=== PATIENT | female | born 1955 | race Caucasian/White ===

== ENCOUNTER 2025-07-29 13:43 | Outpatient (REF) | payer MEDICARE, SELFPAY ==
--- NOTE | 2025-07-29 | EMG_ITS ---
Chief complaint: Pain in the right arm Referred by:?Alexander Vallecillo MD Procedure done: Right upper extremity NCS/EMG Right median and ulnar motor studies were performed with F responses. Right median and ulnar mixed sensory, 2nd and 5th digit ortho sensory, and radial sensory studies were performed and needle examination was performed. Findings: Right median mixed distal latencies was moderately prolonged with slightly slow conduction velocity. Otherwise no significant abnormality noted. Impression: Mild right median neuropathy across carpal tunnel [place] [id number] 1 extremity MTDD
--- OUTSIDE RECORDS SUMMARY | 2025-07-29 19:57 | XMS_ITS | Continuity of Care Document ---
Author Organization [facility] Address [address] [place] [address] Care Team Providers Care Screedman/Laborer Name Role Phone PEPPER BOCANEGRA Orthopedic Surgeon GUTIERREZ EDOUARD Head Golf Professional AIDAN MONK Certified Medication Aide [facility] (MARKUS REY[facility]) Orthopedic Surgeon [facility] Sports Medic ine [facility] Gang Pusher LORENZO BOYKIN Urologist ALMITA VILLALOBOS Primary Care Provider [phone] Assessment Encounter Date Assessment Date Assessment LastModified by Organization Details LastModified Time 04/30/2025 04/30/2025 This service was provided using telemedicine. Patient consented to video & audio visit Patient was located at home in the [facility]. Provider was located in the office. No other persons participated in the telemedicine visit except for the patient unless otherwise indicated here. Total time of visit was 9 minutes. [email or web address] Not available 04/30/2025 14:34:49 Plan of Treatment Reminders Order Date Submit Date Provider Last Modified By Organization Details Last Modified Time Details Appointments [id number] 2025 10:00A Genesis Villalobos PA-C Not available Not available Not available Lab culture, urine 2024 025 POLLY [facility] (Centralized Electronic Ordering - All Locations), Patient Can Go To The Location Of Their Choice, [id number] 05/02/2025 06:08:37 urinalysi s macro (dipstick ) panel, urine 2024 025 FULTON [facility] (Centralized Electronic Ordering - All Locations), Patient Can Go To The Location Of Their Choice, [id number] 05/01/2025 08:08:03 Referral None recorded. Procedures None recorded. Surgeries None recorded. Imaging None recorded. Medication Orders ciproflox acin 250 mg tablet 2024 025 [place] [id number], [id number] [place], [address], 05/10/2025 05:01:33 Patient TargetsNo targets recorded. Patient Instructions Encounter Date Encounter Id Patient Instructions Last Modified By Organization Details Last Modified Time 04/30/2025 [id number] Follow up if no improvement or if symptoms worsen. [email or web address] Not available 04/30/2025 14:34:56 Reason for Referral None Reported. Results Created Date Observation Date Name Description Value Unit Range Abnormal Flag Note LastModifiedBy Organization Detail LastModifiedTime 04/12/2004/12/2025 rapid SARS CoV 2 Ag, QL IA, respi rator y speci men RAPID SARS COV 2 negati ve Not Available In-Office Order Internal Use Only DO Not Attach Compendium DO Not Attach Compendium, Do Not Delete/merge, [id number] 04/12/2025 10:41:23 04/12/2004/12/2025 rapid flu (A+B) Flu A negati ve Not Available In-Office Order Internal Use Only DO Not Attach Compendium DO Not Attach Compendium, Do Not Delete/merge, [id number] 04/12/2025 10:37:16 04/12/2004/12/2025 rapid flu (A+B) Flu B negati ve Not Available In-Office Order Internal Use Only DO Not Attach Compendium DO Not Attach Compendium, Do Not Delete/merge, [id number] 04/12/2025 10:37:16 04/16/2004/16/2025 hemog lobin A1C, finge rstic k A1C 5.3 % 4-6 normal Not Available In-Office Order Internal Use Only DO Not Attach Compendium DO Not Attach Compendium, Do Not Delete/merge, [id number] 04/16/2025 12:07:34 04/30/2005/01/2025 URINA LYSIS , ROUTI NE specific gravity 1.027 1.005- 1.030 normal Not Available [facility] ([facility]) [address] [place], [address], 05/01/2025 08:08:03 04/30/2005/01/2025 URINA LYSIS , ROUTI NE pH 5.5 5.0-7. 5 normal Not Available [facility] ([facility]) [address] [place], [address], 05/01/2025 08:08:03 04/30/2005/01/2025 URINA LYSIS , ROUTI NE urine-color [place] yellow Not Available [facility] ([facility]) [address] [place], [address], 05/01/2025 08:08:03 04/30/2005/01/2025 URINA LYSIS , ROUTI NE appearance Turbid clear abnormal Not Available [facility] ([facility]) [address] [place], [address], 05/01/2025 08:08:03 04/30/2005/01/2025 URINA LYSIS , ROUTI NE WBC esterase 2+ negati ve abnormal Not Available [facility] ([facility]) [address] [place], [address], 05/01/2025 08:08:03 04/30/2005/01/2025 URINA LYSIS , ROUTI NE protein 3+ negati ve/tra ce abnormal Not Available [facility] ([facility]) [address] [place], [address], 05/01/2025 08:08:03 04/30/2005/01/2025 URINA LYSIS , ROUTI NE glucose Negati ve negati ve Not Available [facility] ([facility]) [address] [facility] [place], [address], 05/01/2025 08:08:03 04/30/2005/01/2025 URINA LYSIS , ROUTI NE ketones Negati ve negati ve Not Available [facility] ([facility]) [address], [place], [address], 05/01/2025 08:08:03 04/30/2005/01/2025 URINA LYSIS , ROUTI NE occult blood 2+ negati ve abnormal Not Available [facility] ([facility]) [address], [place], [address], 05/01/2025 08:08:03 04/30/2005/01/2025 URINA LYSIS , ROUTI NE bilirubin Positi ve negati ve abnormal Posit zoila resul ts have been confi rmed. Not Available [facility] ([facility]) [address], [place], [address], 05/01/2025 08:08:03 04/30/2005/01/2025 URINA LYSIS , ROUTI NE urobilinogen ,semi-qn 1.0 mg/dL 0.2-1. 0 normal Not Available [facility] ([facility]) [address], [place], [address], 05/01/2025 08:08:03 04/30/2005/01/2025 URINA LYSIS , ROUTI NE nitrite, urine Positi ve negati ve abnormal Not Available [facility] ([facility]) [address] [place], [address], 05/01/2025 08:08:03 04/30/2005/01/2025 URINA LYSIS , ROUTI NE microscopic examination See below: Micro scopi c was indic ated and was perfo rmed. Not Available [facility] ([facility]) [address] [place], [address], 05/01/2025 08:08:03 04/30/2005/01/2025 URINA LYSIS , ROUTI NE WBC >30 /hpf 0 - 5 abnormal Not Available [facility] ([facility]) [address], [place], [address], 05/01/2025 08:08:03 04/30/20 25 05/01/2025 URINA LYSIS , ROUTI NE RBC >30 /hpf 0 - 2 abnormal Not Available [facility] ([facility]) [address], [place], [address], 05/01/2025 08:08:03 04/30/2005/01/2025 URINA LYSIS , ROUTI NE epithelial cells (non renal) 0-10 /hpf 0 - 10 Not Available [facility] ([facility]) [address], [place], [address], 05/01/2025 08:08:03 04/30/20 25 05/01/2025 URINA LYSIS , ROUTI NE epithelial cells (renal) CLINICAL ABSTRACTOR Not Available [facility] ([facility]) [address], [place], [address], 05/01/2025 08:08:03 04/30/2005/01/2025 URINA LYSIS , ROUTI NE casts None seen /lpf none seen Not Available [facility] ([facility]) [address], [place], [address], 05/01/2025 08:08:03 04/30/2005/01/2025 URINA LYSIS , ROUTI NE cast type CLINICAL ABSTRACTOR Not Available [facility] ([facility]) [address], [place], [address], 05/01/2025 08:08:03 04/30/20 25 05/01/2025 URINA LYSIS , ROUTI NE crystals CLINICAL ABSTRACTOR Not Available [facility] ([facility]) [address], [place], [address], 05/01/2025 08:08:03 04/30/20 25 05/01/2025 URINA LYSIS , ROUTI NE crystal type CLINICAL ABSTRACTOR Not Available [facility] ([facility]) [address], [place], [address], 05/01/2025 08:08:03 04/30/20 25 05/01/2025 URINA LYSIS , ROUTI NE mucus threads CLINICAL ABSTRACTOR Not Available [facility] ([facility]) [address], [place], [address], 05/01/2025 08:08:03 04/30/2005/01/2025 URINA LYSIS , ROUTI NE bacteria Many none seen/f ew abnormal Not Available [facility] ([facility]) [address], [place], [address], 05/01/2025 08:08:03 04/30/2005/01/2025 URINA LYSIS , ROUTI NE yeast CLINICAL ABSTRACTOR Not Available [facility] ([facility]) [address], [place], [address], 05/01/2025 08:08:03 04/30/20 25 05/01/2025 URINA LYSIS , ROUTI NE trichomonas CLINICAL ABSTRACTOR Not Available [facility] ([facility]) [address], [place], [address], 05/01/2025 08:08:03 04/30/2005/01/2025 URINA LYSIS , ROUTI NE comment CLINICAL ABSTRACTOR Not Available [facility] ([facility]) [address], [place], [address], 05/01/2025 08:08:03 04/30/20 25 05/01/2025 URINE CULTU RE, ROUTI NE urine culture, routine Final report Not Available [facility] ([facility]) [address], [place], [address], 05/02/2025 06:08:37 04/30/20 25 05/01/2025 URINE CULTU RE, ROUTI NE result 1 COMMEN T Mixed uroge nital thiago Great er than 100,0 00 colon y formi ng units per mL Not Available [facility] ([facility]) [address], [place], [address], 05/02/2025 06:08:37 Result Notes None recorded. Problems Name Problem SNOMED Code Status Onset Date Resolution Date Notes Provider Name and Address Organization Details Recorded Time Dysuria 37902265 Completed 08/02/2017 RAJESH Zarate [address], [place], [address] , [facility] 4 13:42:37 Depressi ve disorder 35426635 Completed 08/02/2017 Luz Maria martinez [facility] 7 14:57:07 Fatigue 49990966 Completed 01/26/2017 Shikha martinez [facility] 7 12:48:11 Vertigo 270908408 Completed 08/02/2017 Luz Maria martinez [facility] 7 14:57:16 Arthropa thy of knee joint 689966792 Completed 08/02/2017 Luz Maria martinez [facility] 7 14:56:45 Pneumoni a 763423267 Completed 08/02/2017 LIN Pavon [facility] 7 14:38:57 Administ ration of bacteria l and viral vaccine Completed 200702/26/2014 RECORDED 04/22/20 08 11:02AM BY AKUA BAILEY MA, OFFICE VISIT Almita Villalobos PA-C [address], [place], [address] , [facility] 6 14:10:13 Pain of hip region 82394073 Completed 200702/26/2014 IMPRESSI ON: LEFT HIP PAIN WITH KNOWN ARTHRITI S, WILL CHECK XRAY AND REFER TO ORTHO, NEW PROBLEM, KNOWN OA, TREAT WITH MOTRIN, WATER EXERCISE S; RECORDED 04/22/20 08 10:35AM BY KRISHNA HUGGINS ON/[facility] [address], [place], [address] , [facility] 6 14:10:12 Administ ration of bacteria l and viral vaccine Completed 200703/21/2014 RECORDED 04/22/20 08 11:02AM BY AKUA BAILEY MA, OFFICE VISIT [facility] [address], [place], [address] , [facility] 6 14:10:13 Pain of hip region 08376753 Completed 200703/21/2014 IMPRESSI ON: LEFT HIP PAIN WITH KNOWN ARTHRITI S, WILL CHECK XRAY AND REFER TO ORTHO, NEW PROBLEM, KNOWN OA, TREAT WITH MOTRIN, WATER EXERCISE S; RECORDED 04/22/20 08 10:35AM BY KRISHNA HUGGINS ON/[facility] [address], [place], [address] , [facility] 6 14:10:12 Administ ration of bacteria l and viral vaccine Completed 200703/22/2014 RECORDED 04/22/20 08 11:02AM BY AKUA BAILEY MA, OFFICE VISIT Almita Villalobos PA-C [address], [place], [address] , [facility] 6 14:10:13 Pain of hip region 12635467 Completed 200703/22/2014 IMPRESSI ON: LEFT HIP PAIN WITH KNOWN ARTHRITI S, WILL CHECK XRAY AND REFER TO ORTHO, NEW PROBLEM, KNOWN OA, TREAT WITH MOTRIN, WATER EXERCISE S; RECORDED 04/22/20 08 10:35AM BY CLARE CONTRERAS, ANNOTATI ON/ADDEN DUM Almita Villalobos PA-C [address], [place], [address] , [facility] 6 14:10:12 Screenin g for malignan t neoplasm of colon Completed 200702/26/2014 RECORDED 07/31/20 08 11:15AM BY AKUA BAILEY MA, ANNOTATI ON/ADDEN DUM Almita Villalobos PA-C [address], [place], [address] , [facility] 6 14:10:13 Screenin g for malignan t neoplasm of colon Completed 200703/21/2014 RECORDED 07/31/20 08 11:15AM BY AKUA BAILEY MA, ANNOTATI ON/ADDEN DUM Almita Villalobos PA-C [address], [place], [address] , [facility] 6 14:10:13 Screenin g for malignan t neoplasm of colon Completed 200703/22/2014 RECORDED 07/31/20 08 11:15AM BY AKUA BAILEY MA, ANNOTATI ON/ADDEN DUM Almita Villalobos PA-C [address], [place], [address] , [facility] 6 14:10:13 Cough [id number] Completed 200802/26/2014 RECORDED 09/18/19 09 1:00PM BY SUZETTE LEESATI ON/ADDEN DUM Almita Villalobos PA-C [address], [place], [address] , [facility] 6 14:10:12 Cough 02574407 Completed 200803/21/2014 RECORDED 09/18/19 09 1:00PM BY SUZETTE LEESATI ON/ADDEN DUM Almita Villalobos PA-C [address], [place], [address] , [facility] 6 14:10:12 Cough 86659867 Completed 200803/22/2014 RECORDED 09/18/19 09 1:00PM BY KRISHNA LEES ON/ADDEN DUM Almita Villalobos PA-C [address], [place], [address] , [facility] 6 14:10:12 Acute sinusiti s 52528848 Completed 200902/26/2014 RECORDED 06/19/20 10 9:07AM BY KRISHNA ROSAS ON/ADDEN DUM Almita Villalobos PA-C [address], [place], [address] , [facility] 6 14:10:12 Chronic nonalcoh olic liver disease 39382345 Completed 200902/26/2014 IMPRESSI ON: CHECK LFT'S; RECORDED 06/19/20 10 9:06AM BY KRISHNA ROSAS ON/ADDEN DUM [facility] 7 12:48:10 Acute sinusiti s 44784093 Completed 200903/21/2014 RECORDED 06/19/20 10 9:07AM BY KRISHNA ROSAS ON/ADDEN DUM Almita Villalobos PA-C [address], [place], [address] , [facility] 6 14:10:12 Acute sinusiti s 14549655 Completed 200903/22/2014 RECORDED 06/19/20 10 9:07AM BY KRISHNA ROSAS ON/ADDEN DUM Almita Villalobos PA-C [address], [place], [address] , [facility] 6 14:10:12 Abdomina l pain 85532844 Completed 201102/26/2014 RECORDED 06/05/20 12 1:40PM BY KRISHNA PAVON ON/ADDEN DUM Almita Villalobos PA-C [address], [place], [address] , [facility] 6 14:10:12 Left lower quadrant pain 031017275 Completed 201102/26/2014 RECORDED 06/05/20 12 1:40PM BY KRISHNA PAVON ON/ADDEN DUM Almita Villalobos PA-C [address], [place], [address] , [facility] 6 14:10:13 Allergic rhinitis 82939246 Completed 201102/26/2014 IMPRESSI ON: CONTINUE NASAL SPRAY; RECORDED 06/05/20 12 1:40PM BY KRISHNA PAVON ON/ADDEN DUM Almita Villalobos PA-C [address], [place], [address] , [facility] 6 14:10:12 Screenin g for malignan t neoplasm of breast Completed 201102/26/2014 RECORDED 06/05/20 12 1:40PM BY KRISHNA PAVON ON/ADDEN DUM Almita Villalobos PA-C [address], [place], [address] , [facility] 6 14:10:13 Screenin g for malignan t neoplasm of cervix Completed 201102/26/2014 RECORDED 06/05/20 12 1:40PM BY KRISHNA PAVON ON/ADDEN DUM Almita Villalobos PA-C [address], [place], [address] , [facility] 6 14:10:13 Malaise and fatigue 271402655 Completed 201102/26/2014 RECORDED 06/05/20 12 1:40PM BY KRISHNA PAVON ON/ADDEN DUM Almita Villalobos PA-C [address], [place], [address] , [facility] 6 14:10:12 Right upper quadrant pain 562594263 Completed 201102/26/2014 IMPRESSI ON: R SIDED ABD PAIN, SOUNDS HISTORIC ALLY CONSISTE NT WITH ZOSTER, BUT THERE IS NO RASH PRESENT AND PT DOES HAVE A HX OF CHOLELIT HIASIS. WILL GET LABS TODAY AND DISCUSSE D POSSIBIL ITY OF REPEATIN G ABD U/S, BUT PT WISHES TO DEFER AT THIS TIME AND WILL MONITOR SXS AT HOME. WE WILL F/U VIA PHONE WITH LABS WHEN AVAIL. I AM NOT CONCERNE D ABOUT ACUTE ABD, BUT SHE WILL CALL IMMEDIAT CORNELIA IF ANY FEVER, N/V OR RASH DEVELOPS .; RECORDED 06/05/20 12 1:40PM BY KRISHNA PAVON ON/ADDEN DUM Almitaaudelia FLETCHER-C [address] [address], [place], [address] , [facility] 6 14:10:13 Abdomina l pain 03751358 Completed 201103/21/2014 RECORDED 06/05/20 12 1:40PM BY KRISHNA PAVON ON/ADDEN DUM Almitaaudelia FLETCHER-C [address] [address], [place], [address] , [facility] 6 14:10:13 Left lower quadrant pain 720368933 Completed 201103/21/2014 RECORDED 06/05/20 12 1:40PM BY KRISHNA PAVON ON/ADDEN DUM Almita Ariel PA-C [address] [address], [place], [address] , [facility] 6 14:10:13 Allergic rhinitis 54555169 Completed 201103/21/2014 IMPRESSI ON: CONTINUE NASAL SPRAY; RECORDED 06/05/20 12 1:40PM BY KRISHNA PAVON ON/ADDEN DUM Almitazahraa Villalobos PA-C [address] [address], [place], [address] , [facility] 6 14:10:12 Screenin g for malignan t neoplasm of breast Completed 201103/21/2014 RECORDED 06/05/20 12 1:40PM BY KRISHNA PAVON ON/ADDEN DUM Almitazahraa Villalobos PA-C [address] [facility] [address], [place], [address] , [facility] 6 14:10:13 Screenin g for malignan t neoplasm of cervix Completed 201103/21/2014 RECORDED 06/05/20 12 1:40PM BY KRISHNA PAVON ON/ADDEN DUM Almitazahraa Villalobos PA-C [address] [facility] [address], [place], [address] , [facility] 6 14:10:13 Malaise and fatigue 140902875 Completed 201103/21/2014 IMPRESSI ON: CONTINUE MEDS, KEEPING MOOD EVEN; RECORDED 06/05/20 12 1:39PM BY KRISHNA PAVON ON/DUC DUM Almita Villalobos PA-C [address] [facility] [address], [place], [address] , [facility] 6 14:10:12 Right upper quadrant pain 101855593 Completed 201103/21/2014 IMPRESSI ON: R SIDED ABD PAIN, SOUNDS HISTORIC ALLY CONSISTE NT WITH ZOSTER, BUT THERE IS NO RASH PRESENT AND PT DOES HAVE A HX OF CHOLELIT HIASIS. WILL GET LABS TODAY AND DISCUSSE D POSSIBIL ITY OF REPEATIN G ABD U/S, BUT PT WISHES TO DEFER AT THIS TIME AND WILL MONITOR SXS AT HOME. WE WILL F/U VIA PHONE WITH LABS WHEN AVAIL. I AM NOT CONCERNE D ABOUT ACUTE ABD, BUT SHE WILL CALL IMMEDIAT CORNELIA IF ANY FEVER, N/V OR RASH DEVELOPS .; RECORDED 06/05/20 12 1:40PM BY KRISHNA PAVON ON/ADDEN DUM Almita Villalobos PA-C [address] [facility] [address], [place], [address] , [facility] 6 14:10:13 Abdomina l pain 52698431 Completed 201103/22/2014 RECORDED 06/05/20 12 1:40PM BY KRISHNA PAVON ON/ADDEN DUM Almita Villalobos PA-C [address], [place], [address] , [facility] 6 14:10:13 Left lower quadrant pain 003031847 Completed 201103/22/2014 RECORDED 06/05/20 12 1:40PM BY KRISHNA PAVON ON/ADDEN DUM Almita Villalobos PA-C [address], [place], [address] , [facility] 6 14:10:13 Allergic rhinitis 08652454 Completed 201103/22/2014 IMPRESSI ON: CONTINUE NASAL SPRAY; RECORDED 06/05/20 12 1:40PM BY KRISHNA PAVON ON/ADDEN DUM Almita Villalobos PA-C [address], [place], [address] , [facility] 6 14:10:12 Screenin g for malignan t neoplasm of breast Completed 201103/22/2014 RECORDED 06/05/20 12 1:40PM BY KRISHNA PAVON ON/ADDEN DUM Almita Villalobos PA-C [address], [place], [address] , [facility] 6 14:10:13 Screenin g for malignan t neoplasm of cervix Completed 201103/22/2014 RECORDED 06/05/20 12 1:40PM BY KRISHNA PAVON ON/ADDEN DUM Almita Villalobos PA-C [address], [place], [address] , [facility] 6 14:10:13 Malaise and fatigue 470176923 Completed 201103/22/2014 IMPRESSI ON: CONTINUE MEDS, KEEPING MOOD EVEN; RECORDED 06/05/20 12 1:39PM BY KRISHNA PAVON ON/ADDEN DUM Almita Ariel QUESADAC [address], [place], [address] , [facility] 6 14:10:12 Right upper quadrant pain 856661437 Completed 201103/22/2014 IMPRESSI ON: R SIDED ABD PAIN, SOUNDS HISTORIC ALLY CONSISTE NT WITH ZOSTER, BUT THERE IS NO RASH PRESENT AND PT DOES HAVE A HX OF CHOLELIT HIASIS. WILL GET LABS TODAY AND DISCUSSE D POSSIBIL ITY OF REPEATIN G ABD U/S, BUT PT WISHES TO DEFER AT THIS TIME AND WILL MONITOR SXS AT HOME. WE WILL F/U VIA PHONE WITH LABS WHEN AVAIL. I AM NOT CONCERNE D ABOUT ACUTE ABD, BUT SHE WILL CALL IMMEDIAT CORNELIA IF ANY FEVER, N/V OR RASH DEVELOPS .; RECORDED 06/05/20 12 1:40PM BY KRISHNA PAVON ON/ADDEN DUM Almita QUESADAC [address], [place], [address] , [facility] 6 14:10:13 Acne [id number] Completed 201102/26/2014 IMPRESSI ON: IS OFF DOXYCYCL INE, MAY HAVE BEEN RELATED TO THER VERTIGO, NO HEADACHE OR OTHER NEUROLOG ICAL ISSUES; RECORDED 08/14/20 12 9:35AM BY MUSA VILLALOBOS MA, KRISHNA ON/ADDEN DUM Almita Villalobos PA-C [address], [place], [address] , [facility] 6 14:10:12 Follow-u p encounte r Completed 201102/26/2014 RECORDED 08/14/20 12 9:35AM BY MUSA VILLALOBOS MA, KRISHNA ON/ADDEN DUM Almita Ariel QUESADAC [address] [facility] [address], [place], [address] , [facility] 6 14:10:13 Family history of Cardiova scular disease [id number] Completed 201102/26/2014 IMPRESSI ON: OT WITH NEG US OF ABDOMEN THIS MONTH AND HAD CT OF ABDOMEN 03/24 THAT SHOWED A NL AORTA, NO ANEURYSM , NO FURTHER WORKUP NEEDED.; RECORDED 08/14/20 12 9:35AM BY MUSA VILLALOBOS MA, KRISHNA ON/ADDEN DUM Almitaaudelia Villalobos PA-C [address], [place], [address] , [facility] 6 14:10:13 Fibromyo sitis 29406398 Completed 201102/26/2014 RECORDED 08/14/20 12 9:35AM BY MUSA VILLALOBOS MA, KRISHNA ON/ADDEN DUM Almita Villalobos PA-C [address] [facility] [address] [address], [place], [address] , [facility] 6 14:10:12 Dizzines s and giddines s [id number] Completed 201102/26/2014 IMPRESSI ON: HAD IN THE PAST IMPROVIN G, NOTE FOR WORK WRITTEN, USE MECLIZIN E NEEDED. IF NOT IMPROVIN G PT TO SET UP APPT WITH ENT AND MAY NEED REHAB.; RECORDED 08/14/20 12 9:35AM BY MUSA VILLALOBOS MA, ANNOTATI ON/DUC DUM Almita FLETCHER-C [address], [place], [address] , [facility] 6 14:10:12 Herpes zoster 1587945 Completed 201102/26/2014 RECORDED 08/14/20 12 9:35AM BY MUSA VILLALOBOS MA, ANNOTATI ON/DUC Villalobos PA-C [address] [facility] [address], [place], [address] , [facility] 6 14:10:12 Acne [id number] Completed 201103/21/2014 IMPRESSI ON: IS OFF DOXYCYCL INE, MAY HAVE BEEN RELATED TO THER VERTIGO, NO HEADACHE OR OTHER NEUROLOG ICAL ISSUES; RECORDED 08/14/20 12 9:35AM BY MUSA VILLALOBOS MA, KRISHNA ON/ADDEN DUM Almita Villalobos PA-C [address], [place], [address] , [facility] 6 14:10:12 Follow-u p encounte r Completed 201103/21/2014 RECORDED 08/14/20 12 9:35AM BY MUSA VLILALOBOS MA, KRISHNA ON/ADDEN DUM Almita Synthorx PA-C [address], [place], [address] , [facility] 6 14:10:13 Family history of Cardiova scular disease [id number] Completed 201103/21/2014 IMPRESSI ON: OT WITH NEG US OF ABDOMEN THIS MONTH AND HAD CT OF ABDOMEN 03/24 THAT SHOWED A NL AORTA, NO ANEURYSM , NO FURTHER WORKUP NEEDED.; RECORDED 08/14/20 12 9:35AM BY MUSA VILLALOBOS MA, KRISHNA ON/XplornetEN DUM Almita Synthorx PA-C [address], [place], [address] , [facility] 6 14:10:13 Fibromyo sitis [id number] Completed 201103/21/2014 RECORDED 08/14/20 12 9:35AM BY MUSA VILLALOBOS MA, KRISHNA ON/ADDEN DUM Almita Villalobos PA-C [address], [place] [place], [address] , [facility] 6 14:10:12 Dizzines s and giddines s [id number] Completed 201103/21/2014 IMPRESSI ON: HAD IN THE PAST IMPROVIN G, NOTE FOR WORK WRITTEN, USE MECLIZIN E NEEDED. IF NOT IMPROVIN G PT TO SET UP APPT WITH ENT AND MAY NEED REHAB.; RECORDED 08/14/20 12 9:35AM BY MUSA VILLALOBOS MA, KRISHNA ON/ADDEN DUM Almita Villalobos PA-C [address], [place], [address] , [facility] 6 14:10:12 Herpes zoster [id number] Completed 201103/21/2014 RECORDED 08/14/20 12 9:35AM BY MUSA VILLALOBOS MA, KRISHNA ON/ADDEN DUM Almita Villalobos PA-C [address], [place], [address] , [facility] 6 14:10:12 Acne [id number] Completed 201103/22/2014 IMPRESSI ON: IS OFF DOXYCYCL INE, MAY HAVE BEEN RELATED TO THER VERTIGO, NO HEADACHE OR OTHER NEUROLOG ICAL ISSUES; RECORDED 08/14/20 12 9:35AM BY MUSA VILLALOBOS MA, KRISHNA ON/ADDEN DUM Almita Villalobos PA-C [address], [place], [address] , [facility] 6 14:10:12 Follow-u p encounte r Completed 201103/22/2014 RECORDED 08/14/20 12 9:35AM BY MUSA VILLALOBOS MA, KRISHNA ON/ADDEN DUM Almita Villalobos PA-C [address], [place], [address] , [facility] 6 14:10:13 Family history of Cardiova scular disease [id number] Completed 201103/22/2014 IMPRESSI ON: OT WITH NEG US OF ABDOMEN THIS MONTH AND HAD CT OF ABDOMEN 03/24 THAT SHOWED A NL AORTA, NO ANEURYSM , NO FURTHER WORKUP NEEDED.; RECORDED 08/14/20 12 9:35AM BY MUSA VILLALOBOS MA, KRISNHA ON/ADDEN DUM Almita Villalobos PA-C [address], [place], [address] , [facility] 6 14:10:13 Fibromyo sitis [id number] Completed 201103/22/2014 RECORDED 08/14/20 12 9:35AM BY MUSA VILLALOBOS MA, KRISHNA ON/ADDEN DUM Almita Villalobos PA-C [address], [place], [address] , [facility] 6 14:10:12 Dizzines s and giddines s [id number] Completed 201103/22/2014 IMPRESSI ON: HAD IN THE PAST IMPROVIN G, NOTE FOR WORK WRITTEN, USE MECLIZIN E NEEDED. IF NOT IMPROVIN G PT TO SET UP APPT WITH ENT AND MAY NEED REHAB.; RECORDED 08/14/20 12 9:35AM BY MUSA VILLALOBOS MA, KRISHNA ON/ADDEN DUM Almita Villalobos PA-C [address], [place], [address] , [facility] 6 14:10:12 Herpes zoster [id number] Completed 201103/22/2014 RECORDED 08/14/20 12 9:35AM BY MUSA VILLALOBOS MA, KRISHNA ON/ADDEN DUM Almita Villalobos PA-C [address] [facility] [address], [place], [address] , [facility] 6 14:10:12 Blood chemistr y outside referenc e range [id number] Completed 201202/26/2014 RECORDED 09/16/19 13 1:53AM BY KRISHNA PAVON ON/ADDEN DUM [facility] 7 12:47:40 Essentia l hyperten cata [id number] Completed 201202/26/2014 RECORDED 09/16/19 13 1:54AM BY KRISHNA PAVON ON/ADDEN DUM [facility] 0 10:07:52 Essentia l hyperten cata [id number] Completed 201203/21/2014 RECORDED 09/16/19 13 1:54AM BY KRISHNA PAVON ON/ADDEN DUM Shanita martinez, [facility] 0 10:07:52 Richard l wendyen cata [id number] Completed 201203/22/2014 RECORDED 09/16/19 13 1:54AM BY SUZETTE PAVONATI ON/ADDEN DUM Shanita Louis null, [facility] 0 10:07:52 Tobacco user [id number] Completed 201202/26/2014 RECORDED 06/08/20 13 1:11PM BY KRISHNA SHAFFER ON/ADDEN DUM LIN Ling, [facility] 8 10:43:17 History of clinical finding in subject [id number] Completed 201201/26/2017 Shikha martinez, [facility] 7 12:48:01 Adult health examinat ion Completed 201202/26/2014 IMPRESSI ON: MAMMOGRA M, PAP SMEAR AND COLONOSC OPY UTD, IS TRYING TO HELP WITH WEIGHT LOSS; RECORDED 06/08/20 13 1:11PM BY KRISHNA SHAFFER ON/ADDEN DUM Shikha martinez, [facility] 7 12:47:45 Glucose level outside referenc e range [id number] Completed 201202/26/2014 IMPRESSI ON: RECHECK FASTING AND A1C; RECORDED 06/08/20 13 1:11PM BY KRISHNA SHAFFER ON/ADDEN DUM Luz Maria GladingTricia martinez, [facility] 9 16:04:41 Knee pain Completed 201202/26/2014 IMPRESSI ON: WILL BE GETTING INJECTIO NS; RECORDED 06/08/20 13 1:11PM BY KRISHNA SHAFFER ON/ADDEN DUM Almita Villalobos PA-C [address] [facility] [address], [place], [address] , [facility] 6 14:10:12 Laborato ry procedur e performe d [id number] Completed 201202/26/2014 RECORDED 06/08/20 13 1:11PM BY MARI GONZALES I, ANNOTATI ON/ADDEN DUM Almita Villalobos PA-C [address], [place], [address] , [facility] 6 14:10:13 Tobacco user [id number] Completed 201203/21/2014 RECORDED 06/08/20 13 1:11PM BY SUZETTE SHAFFERATI ON/ADDEN DUM Akua [facility] 8 10:43:17 Knee pain Completed 201203/21/2014 IMPRESSI ON: WILL BE GETTING INJECTIO NS; RECORDED 06/08/20 13 1:11PM BY SUZETTE SHAFFERATI ON/ADDEN DUM Almita Villalobos PA-C [address], [place], [address] , [facility] 6 14:10:12 Laborato ry procedur e performe d [id number] Completed 201203/21/2014 RECORDED 06/08/20 13 1:11PM BY SUZETTE SHAFFERATI ON/ADDEN DUM Almita Villalobos PA-C [address], [place], [address] , [facility] 6 14:10:13 Tobacco user [id number] Completed 201203/22/2014 RECORDED 06/08/20 13 1:11PM BY SUZETTE SHAFFERATI ON/ADDEN DUM Akua LIN Ríos, [facility] 8 10:43:17 Knee pain Completed 201203/22/2014 IMPRESSI ON: WILL BE GETTING INJECTIO NS; RECORDED 06/08/20 13 1:11PM BY KRISHNA SHAFFER ON/ADDEN DUM Almita QUESADAC [address], [place], [address] , [facility] 6 14:10:12 Laborato ry procedur e performe d [id number] Completed 201203/22/2014 RECORDED 06/08/20 13 1:11PM BY KRISHNA SHAFFER ON/ADDEN DUM Almita QUESADAC [address], [place], [address] , [facility] 6 14:10:13 Adult health examinat ion Completed 201301/26/2017 IMPRESSI ON: PAP, MAMMO AND COLONOSC OPY UTD, PT NEEDS TO WORK ON WEIGHT LOSS.; RECORDED 12/29/19 14 1:57PM BY LUZ MARIA Massey MD, OFFICE VISIT Shikha martinez [facility] 7 12:47:45 Glucose level outside referenc e range 441043028 Completed 201303/14/2019 Luz Maria martinez [facility] 9 16:04:41 Blood chemistr y outside referenc e range 156126824 Completed 201301/26/2017 Shikha martinez [facility] 7 12:47:40 Arthropa thy 978821680 Completed 201308/02/2017 Luz Maria martinez [facility] 7 14:57:11 Enthesop athy of hip region 24892272 Completed 201308/02/2017 Luz Maria martinez [facility] 7 14:57:04 Divertic ulitis of colon 343521384 Completed 201309/10/2024 Almita Villalobos PA-C [address], [place], [address] , [facility] 5 11:27:56 Gastroes ophageal reflux disease 201603471 Active 2013 Not Available [facility] 2 04:47:11 Chronic nonalcoh olic liver disease 62619751 Active 2013 Not Available [facility] 2 04:47:11 Pure hypercho lesterol emia 106994063 Completed 201308/02/2017 Luz Maria martinez [facility] 7 14:56:42 Insomnia 897541488 Active 2013 Not Available [facility] 2 04:47:11 Irritabl e bowel syndrome 24592419 Active 2013 Not Available [facility] 2 04:47:11 Disease of liver 456684098 Completed 201308/02/2017 Luz Maria martinez [facility] 7 14:57:00 Single major depressi ve episode Completed 201308/02/2017 LIN Pavon, [facility] 7 14:39:15 Tobacco user [id number] Completed 201311/29/2017 Removal Reason: quit LIN Ling, [facility] 8 10:43:17 Contact dermatit is 77204523 Completed 201308/02/2017 LIN Pavon, [facility] 7 14:39:21 Ex-smoke r 2605298 Active 2017 Not Available [facility] 2 04:47:11 Type 2 diabetes mellitus controll ed by diet [id number] 9101 Completed 201812/19/2019 Almita Villalobos PA-C [address] [facility] [address], [place], [address] , [facility] 0 14:20:57 Chronic kidney disease stage 1 019705527 Active 2018 Not Available [facility] 2 04:47:11 Hyperten sive renal disease 18820006 Active 2019 Not Available [facility] 2 04:47:11 Renal disorder due to type 2 diabetes mellitus 337366743 Active 2019 Not Available [facility] 2 04:47:11 Exposure to SARS-CoV -2 Completed 202003/17/2021 Removal Reason: Problem marked historic al by user [email or web address] from the COVID-19 watch flag Susannah martinez, [facility] 1 15:10:38 COVID-19 [id number] Completed 202003/17/2021 Removal Reason: Problem marked historic al by user [email or web address] 5 from the COVID-19 watch flag Susannah martinez, [facility] 1 15:10:38 Generali zed anxiety disorder 60201356 Active 2022 Almita Villalobos PA-C [address] [facility] [address], [place], [address] , [facility] 3 10:55:49 Lumbar spondylo sis 217667397 Active 2022 Almita QUESADAC [address] [facility] [address], [place], [address] , [facility] 3 11:11:58 Body mass index 30+ - obesity 424398025 Active 2023 Almita Villalobos PA-C [address] [facility] [address], [place], [address] , [facility] 4 11:20:33 Moderate major depressi on, single episode 42670978 Active 2023 Almita Villalobos PA-C [address] [facility] [address], [place], [address] , [facility] 4 13:08:10 Dysuria 78582375 Active 2023 QUETA ZarateUP [address], [place], [address] , [facility] 4 13:42:37 Constipa tion 76606932 Active 2023 Dolores Garcia, PASUP [address], [place], [address] , [facility] 4 13:44:10 Rectal polyp 76382044 Active 2024 2 2-3 mm rectal polyps Almita FLETCHER-C [address], [place], [address] , [facility] 5 14:09:24 Requires antibiot ic coverage for dental procedur e Active 2024 Almita FLETCHER-C [address], [place], [address] , [facility] 5 15:06:44 Insomnia disorder related to another mental disorder 24777084 Active 2024 Almita FLETCHER-C [address], [place], [address] , [facility] 5 11:02:49 Pain in right arm 905239375 Active 2024 [facility] 5 16:34:11 Mixed hyperlip idemia 920230025 Active 2024 Almita FLETCHER-C [address], [place], [address] , [facility] 5 10:33:20 Problem Notes None recorded. Procedures Surgical History Date Name Laterality Status Provider Name and Address Organization Details Recorded Time 10/08/19 25 Colonoscopy completed Susannah Rosales [facility] 10/08/2024 09:51:55 09/10/19 25 Diabetic Foot Exam (Monofilament) completed Almita FLETCHER-C [address], [place], [address], [place] [facility] 09/10/2024 16:09:12 06/07/20 23 diabetic retinopathy screening completed Susannah Rosales [facility] 06/27/2023 10:24:05 12/25/19 23 Diabetic Foot Exam (Monofilament) completed Parker Tariq [facility] 12/24/2022 10:52:24 10/30/19 23 Advanced Care Planning completed Eva Escalona MA [facility] 10/29/2022 10:02:31 12/31/19 21 Most Recent Mammogram completed Carol Hendrickson [facility] 12/31/2020 10:11:50 09/05/19 21 Six-Item Cognitive Test completed Eva Escalona MA [facility] 09/05/2020 10:13:12 07/22/20 20 Diabetic Foot Exam (Monofilament) completed Lela Yu MA [facility] 07/22/2020 10:08:16 03/18/20 20 Diabetic Foot Exam (Monofilament) completed Donna Cardenas [facility] 03/18/2020 09:30:37 10/25/19 20 Mammogram both breasts completed Marya Roper [facility] 10/26/2019 14:23:04 07/05/20 19 injection of joint of foot completed Susannah Phan [facility] 07/09/2019 10:21:02 08/15/19 18 Biopsy skin lesion completed Akua whitaker MA [facility] 11/29/2017 10:52:49 11/05/19 16 Joint Replacement completed Eva Escalona MA [facility] 06/11/2016 11:07:17 05/16/20 15 Date of Last Colonoscopy completed Shikha Hamm MA [facility] 08/03/2018 11:18:54 05/16/20 15 Colonoscopy completed Shikha Hamm MA [facility] 01/26/2017 12:52:21 12/20/19 15 Date of Last Pap Smear completed Eva Escalona MA [facility] 01/01/2015 14:35:25 01/28/20 07 Most Recent Bone Density completed Shikha Hamm MA [facility] 08/03/2018 11:18:29 01/13/19 86 Hysterectomy completed Eva Escalona MA [facility] 01/01/2015 14:35:53 01/13/19 86 Hysterectomy completed Eva Escalona MA [facility] 09/05/2020 09:59:09 09/15/18 83 Caesarean Section completed Eva Escalona MA [facility] 01/01/2015 14:35:53 09/15/18 83 Caesarean Section completed Eva Escalona MA [facility] 09/05/2020 09:59:09 09/15/18 79 Caesarean Section completed Eva Escalona MA [facility] 01/01/2015 14:35:53 Imaging Results None recorded. Procedure Notes None recorded. Medical Equipment None Reported. Allergies Allergen ID Allergen Name Allergen Category Reaction Reaction Severity Criticality Documentation Date Start Date Code Code System Note Provider Name and Address Organization Details Recorded Time 03975 Augmentin medicatio n diarrhea vomiting Not available Not available Not available 11/30/20172017 79705 2 RxNorm but can anton ate amox ac denta maria alejandra Villalobos PA-C [address] [facility] [address], [place], [address] [place] [address] 5 14:29:59 73889 lisinopri l medicatio n cough Not available Not available 03/14/2018 35229 RxNorm Mari martinez [facility] 8 13:49:55 693 codeine medicatio n irregular heart rate moderate Not available 02/26/2014 2670 RxNorm LIN Pavon [facility] 5 14:34:57 694 doxycycli ne monohydra te medicatio n vomiting moderate Not available 02/26/201487888 2 RxNorm LIN Pavon [facility] 5 14:34:57 695 latex environme nt,medica tion hives moderate Not available 02/26/2014 96414 91 [facility] 5 14:34:57 696 Shellfish (substanc e) food,medi cation hives severe Not available 02/26/2014 14994 9006 SNOMED [facility] 5 14:34:57 Medications Name Sig Start Date Stop Date Status Note LastModified by Organization Details LastModified Time freestyle mis lite 07/22 completed Not Available Not Available Not Available freestyle mis lancets 07/22 completed Not Available Not Available Not Available freestyle ruben lite 07/22 completed Not Available Not Available Not Available losartan 50 mg tablet Take 1 tablet every day by oral route for 90 days. 04/28 completed Not Available Not Available Not Available celecoxib 200 mg capsule TAKE ONE CAPSULE BY MOUTH EVERY DAY active Not Available Not Available No t Available amoxicill in 500 mg capsule TAKE 4 CAPSULES BY MOUTH 1 HOUR PRIOR TO DENTAL APPT 07/16 completed Not Available Not Available Not Available atorvasta tin 40 mg tablet TAKE 1 TABLET BY MOUTH EVERY DAY active Not Available Not Available No t Available methocarb nidia 500 mg tablet TAKE 1 TABLET BY MOUTH THREE TIMES DAILY NEEDED FOR SPASMS AND/OR PAIN FOR 10 DAYS 06/20 completed Not Available Not Available Not Available Augmentin 875 mg-125 mg tablet Take 1 tablet every 12 hours by oral route as directed for 10 days. 12/27 completed Not Available Not Available Not Available acetamino phen 325 mg tablet Take 2 tablets every 6 hours by oral route as needed. active Not Available Not Available No t Available prednison e 10 mg tablet TAKE 4 TABLETS DAILY FOR 3 DAYS THEN 3 TABLETS DAILY FOR 3 DAYS THEN 2 TABLETS DAILY FOR 3 DAYS THEN 1 TABLET DAILY FOR 3 DAYS 04/16 completed Not Available Not Available Not Available OneTouch Ultra Control solution 07/28 completed Not Available Not Available Not Available trazodone 50 mg tablet TAKE ONE TABLET BY MOUTH EVERY DAY active Not Available Not Available No t Available triamcino lone acetonide 0.5 % topical cream APPLY A THIN LAYER TO AFFECTED AREA TWO TIMES A DAY X 7 TO 10 DAYS 06/20 completed Not Available Not Available Not Available valacyclo vir 1 gram tablet EVERY 8 HOURS 12/09 completed RECORDED 01/16/20 11 11:29AM BY AYUSH SANCHEZ MD, MEDICATI ON AUTO-LYNN CTIVATIO N; Not Available Not Available Not Available cephalexi n 250 mg capsule 06/19 completed Not Available Not Available Not Available minocycli ne 100 mg capsule TAKE 1 CAPSULE TWICE A DAY BY ORAL ROUTE NEEDED FOR 60 DAYS. 11/22 completed Not Available Not Available Not Available FreeStyle Lancets 28 gauge USE TO TEST ONCE PER DAY. 11/18 completed Not Available Not Available Not Available Levaquin 750 mg tablet Take 1 tablet every day by oral route as directed for 6 days. 11/18 completed Not Available Not Available Not Available prednison e 20 mg tablet 08/03 completed Not Available Not Available Not Available clonazepa m 0.5 mg tablet TAKE ONE TABLET BY MOUTH EVERY DAY active Not Available Not Available No t Available doxycycli ne hyclate 50 mg capsule DAILY 12/22 completed RECORDED 12/23/19 13 1:23PM BY EVA ESCALONA, OFFICE VISIT; Not Available Not Available Not Available sertralin e 100 mg tablet TAKE ONE AND ONE-HALF TABLETS BY MOUTH EVERY DAY active Not Available Not Available No t Available Zithromax Z-Juan Pablo 250 mg tablet TAKE 2 TABLETS (500 MG) BY ORAL ROUTE ONCE DAILY FOR 1 DAY THEN 1 TABLET (250 MG) BY ORAL ROUTE ONCE DAILY FOR 4 DAYS 12/27 completed Not Available Not Available Not Available metronida zole 500 mg tablet TWO TIMES DAILY 04/13 completed RECORDED 04/13/20 10 7:52PM BY JUSTINE ALLEN, ANNOTATI ON/DUC DUM; Not Available Not Available Not Available dextromet horphan-g uaifenesi n 10 mg-200 mg/5 mL oral liquid Take 5 mL 4 times a day by oral route as needed for 30 days. 06/11 completed Not Available Not Available Not Available ciproflox acin 250 mg tablet Take 1 tablet twice a day by oral route for 3 days. 05/10 completed Not Available Not Available Not Available amlodipin e 5 mg tablet TAKE ONE TABLET BY MOUTH EVERY DAY active Not Available Not Available No t Available ciproflox acin 500 mg tablet TWO TIMES DAILY 04/13 completed RECORDED 04/13/20 10 7:52PM BY JUSTINE ALLEN, ANNOTATI ON/ADDEN DUM; Not Available Not Available Not Available sulfameth oxazole 800 mg-trimet hoprim 160 mg tablet TAKE ONE TABLET BY MOUTH TWICE A DAY FOR 3 DAYS 06/20 completed Not Available Not Available Not Available amoxicill in 500 mg tablet TAKE FOUR TABLETS BY MOUTH BEFORE DENTAL 01/08 completed Not Available Not Available Not Available oxycodone -acetamin ophen 5 mg-325 mg tablet 08/20 completed Not Available Not Available Not Available Motrin 800 mg tablet Q 6HRS PRN PAIN 06/10 completed RECORDED 06/10/20 11 3:09PM BY DEWEY RODRIGEZ, KRISHNA ON/ADDEN DUM;THIS ORDER DISCONTI NUED PER MEDI-SPA N. Not Available Not Available Not Available Fluticaso ne Propionat e (Inhal) 50 mcg/BLIST inhl powd DAILY 2011 active RECORDED 12/29/19 14 1:26PM BY EVA ESCALONA, OFFICE VISIT; Not Available Not Available Not Available amoxicill in 875 mg tablet TWO TIMES DAILY 11/02 completed RECORDED 11/06/19 10 8:33AM BY DEMETRIUS RICE PA-C, MEDICATI ON AUTO-LYNN CTIVATIO N; Not Available Not Available Not Available hydromorp christiano 2 mg tablet Take 2 tablets every 4 hours by oral route as needed for 30 days. 06/11 completed Not Available Not Available Not Available lorazepam 0.5 mg tablet TAKE ONE TABLET BY MOUTH EVERY DAY 12/18 completed Not Available Not Available Not Available estradiol 1 mg tablet Take 1 tablet every day by oral route for 90 days. 08/03 completed Not Available Not Available Not Available dicyclomi ne 20 mg tablet TID BEFORE MEALS 06/10 completed RECORDED 06/10/20 11 3:09PM BY DEWEY RODRIGEZ, SUZETTEATI ON/ADDEN DUM; Not Available Not Available Not Available nystatin 100,000 unit/gram topical cream APPLY TO THE AFFECTED AREA(S) BY TOPICAL ROUTE 2 TIMES PER DAY 09/09 completed Not Available Not Available Not Available lansopraz ole 30 mg capsule,d elayed release QD 12/22 completed RECORDED 12/23/19 13 1:55PM BY LUZ MARIA Massey MD, SUZETTEATI ON/ADDEN DUM; Not Available Not Available Not Available gabapenti n 300 mg capsule TAKE TWO CAPSULES BY MOUTH EVERY DAY active Not Available Not Available No t Available bisacodyl 5 mg tablet,de layed release TAKE 4 TABLETS DIRECTED 01/08 completed Not Available Not Available Not Available lisinopri l 5 mg tablet Take 1 tablet every day by oral route for 90 days. 03/14 completed Not Available Not Available Not Available hydrochlo rothiazid e 25 mg tablet TAKE 1 TABLET BY MOUTH EVERY DAY 09/21 completed Not Available Not Available Not Available gabapenti n 100 mg capsule Take 1 capsule 3 times a day by oral route for 30 days. 09/09 completed Not Available Not Available Not Available lorazepam 1 mg tablet TAKE 1/2 TABLET ORALLY ONCE DAILY X 5 DAYS PRN 06/01 completed Not Available Not Available Not Available azelastin e 137 mcg (0.1 %) nasal spray USE 2 SPRAYS IN EACH NOSTRIL TWICE DAILY 11/22 completed PRN Not Available Not Available Not Available ibuprofen 600 mg tablet 08/03 completed Not Available Not Available Not Available methylpre dnisolone 4 mg tablets in a dose pack 08/03 completed Not Available Not Available Not Available cefdinir 300 mg capsule Take 1 capsule every 12 hours by oral route for 7 days. 04/30 completed Not Available Not Available Not Available Coumadin 1 mg tablet Take 10 tablets every day by oral route as directed for 30 days. 06/11 completed Not Available Not Available Not Available losartan 100 mg tablet TAKE ONE TABLET BY MOUTH EVERY DAY 2024 active Not Available Not Available Not Avai lable paroxetin e ER 25 mg tablet,ex tended release 24 hr TAKE 1 TABLET BY MOUTH EVERY DAY active Not Available Not Available No t Available metaxalon e 800 mg tablet TAKE 1 TABLET BY MOUTH 3 TIMES A DAY NEEDED FOR MUSCLE SPASMS/P AIN 07/28 completed Not Available Not Available Not Available clonazepa m 0.25 mg disintegr ating tablet DISSOLVE ONE TABLET BY MOUTH EVERY DAY 01/17 completed Not Available Not Available Not Available rosuvasta tin 10 mg tablet TAKE ONE TABLET BY MOUTH EVERY DAY 04/24 completed Not Available Not Available Not Available rosuvasta tin 20 mg tablet TAKE ONE TABLET BY MOUTH EVERY DAY active Not Available Not Available No t Available OneTouch UltraSoft Lancets USE FOR DAILY TESTING. E11.22 active Not Available Not Available No t Available chlorhexi dine gluconate 0.12 % mouthwash Place 0.12 mL every day by mucous mem route for 7 days. 08/20 completed Not Available Not Available Not Available Amoxil TWO TIMES DAILY 08/15 completed RECORDED 09/18/19 09 12:59PM BY RUPESH ALCOCER MD, MEDICATI ON AUTO-LYNN CTIVATIO N; Not Available Not Available Not Available gabapenti n 1 po QHS 12/24 completed imsomnia and nerve pain Not Available Not Available Not Available blood pressure monitor DAILY MONITORI NG OF BP FOR HTN 06/10 completed RECORDED 06/10/20 11 3:09PM BY DEWEY RODRIGEZ, ANNOTATI ON/DUC JOHNS; Not Available Not Available Not Available Meclizine Hcl Chewable QD 12/22 completed RECORDED 12/23/19 13 1:23PM BY EVA ESCALONA, OFFICE VISIT; Not Available Not Available Not Available FreeStyle Lite Meter kit USE TO TEST BLOOD SUGAR EVERY DAY 11/18 completed Not Available Not Available Not Available Veramyst 27.5 mcg/actua tion nasal spray,ching pension DAILY 08/10 completed RECORDED 08/13/20 08 1:41PM BY RUPESH ALCOCER MD, MEDICATI ON AUTO-LYNN CTIVATIO N; Not Available Not Available Not Available GaviLyte- G 236 gram-22.7 4 gram-6.74 gram-5.86 gram oral solution RECONSTI TUTE AND DRINK DIRECTED BY 12/21 completed Not Available Not Available Not Available Yaritza Allergy 180 mg tablet Take 1 tablet every day by oral route as directed for 30 days. 03/14 completed Not Available Not Available Not Available OneTouch Verio test strips Take 1 strip every day by miscell. route. active Not Available Not Available No t Available Trulicity 1.5 mg/0.5 mL subcutane ous pen injector Inject 1.5 mg every week by subcutan eous route for 90 days. 09/18 completed Ozempic got approved . Not Available Not Available Not Available Trulicity 0.75 mg/0.5 mL subcutane ous pen injector INJECT 0.75MG (0.5ML) UNDER THE SKIN ONCE A WEEK 09/21 completed Not Available Not Available Not Available OneTouch Verio Flex Meter active Not Available Not Available Not Available Ozempic 0.25 mg or 0.5 mg (2 mg/1.5 mL) subcutane ous pen injector Inject 0.25 mg every week by subcutan eous route for 30 days. 04/08 completed Not Available Not Available Not Available OneTouch Ultra Blue Test Strip USE ONE STRIP EVERY DAY DIRECTED 07/28 completed Not Available Not Available Not Available Fluad Quad [id number] (65yr up)(PF) 60 mcg (15 mcg x 4)/0.5mL IM syringe ADM 0.5ML IM UTD 07/22 completed Not Available Not Available Not Available Trulicity 3 mg/0.5 mL subcutane ous pen injector 3 mg via SC injectio n once per week. 90 day supply 09/21 completed Not Available Not Available Not Available Ozempic 1 mg/dose (4 mg/3 mL) subcutane ous pen injector INJECT 1MG UNDER HTE SKIN WEEKLY 04/16 completed Not Available Not Available Not Available QuickVue At-Home COVID-19 Test kit TO TEST DIRECTED 07/27 completed Not Available Not Available Not Available sertralin e 150 mg capsule Take 1 capsule every day by oral route for 90 days. 12/22 completed Not Available Not Available Not Available Paxlovid 300 mg (150 mg x 2)-100 mg tablets in a dose pack Take 3 tablets twice a day by oral route as directed for 5 days. 06/08 completed Not Available Not Available Not Available Ozempic 2 mg/dose (8 mg/3 mL) subcutane ous pen injector INJECT 0.75ML SUBCUTAN EOUSLY EVERY WEEK active Not Available Not Available No t Available Mounjaro 2.5 mg/0.5 mL subcutane ous pen injector Inject 0.5 mL every week by subcutan eous route as directed for 30 days. 12/21 completed 08/22/24 not started [facility] . Not Available Not Available Not Available Ozempic 0.25 mg or 0.5 mg (2 mg/3 mL) subcutane ous pen injector INJECT 0.5MG SUBCUTAN EOUSLY WEEKLY 05/03 completed Not Available Not Available Not Available Vitals None Recorded Social History Question Answer Notes LastModified by Organizat ion Details LastModified Time Tobacco Smoking Status Former Smoker social smoker Akua Aguila MA [facility] 11/29/2017 10:52:27 Do You Have An Advance Directive? No [email or web address] Information not available 07/27/2022 Animal Exposure? Yes [email or web address] Informat ion not available 07/27/2022 Is Blood Transfusion Acceptable In An Emergency? Yes [email or web address] Information not available 01/01/2015 What Is Your Level Of Caffeine Consumption? Moderate 1 Cup Of Coffee Daily Information not available 11/29/2017 How Much Tobacco Do You Chew? None Information not available 11/29/2017 What Type Of Diet Are You Following? REGULAR Information not available 05/30/2014 Which Illicit Or Recreational Drugs Have You Used? None Information not available 11/29/2017 Education 2 Year College [email or web address] Information not available 07/27/2022 Have There Been Any Changes To Your Family Or Social Situation? No [email or web address] Information not available 07/27/2022 When Did You Quit Smoking? 16+yearssinc elastcigaret te [email or web address] Information not available 09/09/2021 Are There Any Guns Present In Your Home? No [email or web address] Information not available 07/27/2022 Legally Blind In One Or Both Eyes? No [email or web address] Information not available 07/27/2022 Live Alone Or With Others? With Others (Dave) And 1 Dog lashell Information not available 06/08/2024 Do You Take Precautions To Prevent Distracted Driving? Yes Information not available 06/11/2016 How Often Do You Need To Have Someone Help You When You Read Instructions, Pamphlets, Or Other Written Material From Your Doctor Or Pharmacy? Never abigby Information not available 01/26/2017 Have You Served In The ? No [email or web address] Information not available 06/11/2016 Have You Or Anyone In Your Household Had Any Of The Following Symptoms In The Last 14 Days: Sore Throat, Cough, Chills, Body Aches For Unknown Reasons, Shortness Of Breath For Unknown Reasons, Loss Of Smell, Loss Of Taste, Fever At Or Greater Than 100 Degrees Fahrenheit? No [email or web address] Information not available 09/05/2020 Are You Or Anyone In Your Household A Health Care Provider Or Emergency Responder? No Information not available 08/26/2020 To The Best Of Your Knowledge Have You Been In Close Proximity To Any Individual Who Tested Positive For COVID-19? No [email or web address] Information not available 09/05/2020 *AWV ONLY* Are You Presently Prescribed Opioid Medication By PCP Or Specialist? If YES -Provider Assess The Benefit For Other, Non-opioid Pain Therapies Instead, Even If The Patient Does Not Have OUD But Is Possibly At Risk. No [email or web address] Information not available 09/09/2021 Have You Recently Traveled To A COVID-19 High Risk Area Or Gathering In The Last 10 Days? No Information not available 08/26/2020 What Was The Date Of Your Most Recent Tobacco Screening? 06/20/2025 Information not available 06/20/2025 Total Number Of Stairs In Home 2 [email or web address] Information not available 07/27/2022 How Many Children Do You Have? 2 Clary And Curtis Information not available 11/29/2017 What Is Your Current Pack Years? 10packyears [email or web address] Information not available 07/27/2022 Do You Use Protection During Sex? No Information not available 11/29/2017 Difficulty Reading? No Information not available 07/27/2022 What Is Your Relationship Status? [email or web address] Information not available 07/27/2022 Do You Use Your Seat Belt Or Car Seat Routinely? Yes [email or web address] Information not available 09/09/2021 Seat Belts Used Routinely Yes Information not available 07/27/2022 Are You Sexually Active? No [email or web address] Information not available 09/09/2021 Smoke Alarm In Home Yes [email or web address] Information not available 07/27/2022 Do You Have Smoke And Carbon Monoxide Detectors In Your Home? No [email or web address] Information not available 09/09/2021 At What Age Did You Start Smoking Tobacco? 18 Quit At 26 Information not available 11/29/2017 Are You Passively Exposed To Smoke? No Information not available 11/29/2017 Do You Use Sunscreen Routinely? Yes [email or web address] Information not available 05/30/2014 How Many Years Have You Smoked Tobacco? 8 Information not available 11/29/2017 Do You Have Difficulty Walking Or Climbing Stairs? Yes Information not available 07/27/2022 Sex: Unknown Functional Status Question Answer Note LastModified by Organizat ion Details LastModified Time Do you use any illicit or recreational drugs? No [email or web address] Information not available 07/27/2022 What is your level of alcohol consumption? Occasional [email or web address] Information not available 05/30/2014 Do you or have you ever used smokeless tobacco? Never used smokeless tobacco [email or web address] Information not available 08/20/2019 Are you currently employed? Yes [email or web address] Information not available 05/30/2014 Difficulty driving at night? No [email or web address] Information no t available 07/27/2022 Are you able to walk independently without assistance or assistive devices? YESWOREST [email or web address] Information not available 07/27/2022 Are you able to care for yourself independently? Yes [email or web address] Information not available 05/30/2014 What is your occupation? Retired [email or web address] Information not available 09/09/2021 Do you have difficulty dressing, bathing, grooming, or toileting? No [email or web address] Information not available 07/27/2022 Do you or have you ever used e-cigarettes or vape? Never used electronic cigarettes [email or web address] Information not available 07/27/2022 What is your exercise level? [facility] [email or web address] Information not available 09/09/2021 Mental Status Question Answer Note LastModified by Organization D etails LastModified Time Do you have difficulty concentrating, remembering or making decisions? No [email or web address] Information no t available 07/27/2022 Family History Relationship Description Onset Age of this Age Resolved Age Notes LastModified by Organization Details LastModified Time Mother Osteoporosis [email or web address] Not laila ilable 09/05/2020 09:58:45 Mother Disorder of thyroid gland [email or web address] Not available 09/05 09:58:45 Mother Harmful pattern of use of alcohol [email or web address] Not available 09/05 09:58:45 Mother Depressive disorder [email or web address] Not available 09/05 09:58:45 Mother Hypertensive disorder [email or web address] Not available 09/05 09:58:45 Mother Chronic obstructive pulmonary disease 76 [email or web address] Not available 09/05 09:58:45 Mother Anxiety disorder [email or web address] Not available 09/05 09:58:45 Father Heart disease [email or web address] Not available 09/05 09:58:45 Father Chronic obstructive pulmonary disease 76 [email or web address] Not available 2021 09:10:17 Father Arthritis [email or web address] Not availa ble 09/05/2020 09:58:45 Father Blood coagulation disorder [email or web address] Not available 09/05 09:58:45 Father Hypertensive disorder [email or web address] Not available 09/05 09:58:45 Medical History Condition Response Gout N Other N Kidney Stones N Blood Diseases N Hyperthyroidism N Breast Cancer N Hypothyroidism N Lung Disease N Depression N COPD N Defects or Inherited Disease N Anesthesia Complications N Headaches/Migraines N Anxiety Disorder Y Varicose Veins N Obesity N Vision or Eye Problems N Arthritis Y Head Injury/Concussion N Infertility N Polyps N Congenital Anomalies N Acid Reflux (GERD) N Cancer N Stroke N ADHD N Endometriosis N High Cholesterol N Liver Disease N Fibromyalgia N Kidney Disease N Heart Problems N Ear or Hearing Problems N Hospitalizations N Thyroid Problems N GI Problems N Acne Y Eating Disorder N Skin Problems N Anemia N Constipation N Bladder Problems N Mental Illness N Diabetes Y Ovarian Cancer N Blood Transfusions N Seizures/Epilepsy N Tuberculosis N AIDS/HIV N Congestive Heart Failure (CHF) N Eczema N Abuse/Domestic Violence N Diverticulitis N Asthma N Allergies Y Reflux/GERD Y Hepatitis N Pulmonary Embolism N Hypertension Y Chicken Pox Y Autism Spectrum Disorder (ASD) N Osteoporosis N Gynecological History Statement/Question Response Abnormal Pap Y Flow Heavy STIs/STDs N HPV Vaccine Y Duration of Flow (days) 30 Age at Menarche 12 Current Control Method Hysterectom y Most Recent Mammogram 12/30/2020 Age at First Child 23 If Post Menopausal, Age at Menopause 32 Date of Last Colonoscopy 05/16/2015 Most Recent Bone Density 01/27/2007 Sexually Active? Y Date of Last Pap Smear 12/19/2014 Sexual Problems? N Y Obstetrics History GPAL:G 0 P 0 0 0 0 Immunizations Vaccine Type Date Status Note Provider Nam e and Address Organization Details Recorded Time Tdap 8 completed Not Available [facility] 06/29/2022 04:47:12 Influenza, split virus, trivalent, preservative 1 completed Not Available [facility] 06/29/2022 04:47:11 Influenza, split virus, trivalent, preservative 1 completed Not Available [facility] 06/29/2022 04:47:12 Influenza, split virus, trivalent, preservative 2 completed Not Available [facility] 06/29/2022 04:47:12 Influenza, split virus, trivalent, preservative 3 completed Not Available [facility] 06/29/2022 04:47:12 Influenza, split virus, quadrivalent, preservative 9 completed Not Available [facility] 06/29/2022 04:47:12 COVID-19, mRNA, LNP-S, PF, 100 mcg/0.5mL dose or 50 mcg/0.25mL dose 1 completed Not Available [facility] 06/29/2022 04:47:12 COVID-19, mRNA, LNP-S, PF, 100 mcg/0.5mL dose or 50 mcg/0.25mL dose 1 completed Not Available [facility] 06/29/2022 04:47:12 COVID-19, mRNA, LNP-S, PF, 100 mcg/0.5mL dose or 50 mcg/0.25mL dose 1 completed Not Available [facility] 06/29/2022 04:47:12 Influenza, split virus, trivalent, preservative 2 completed Not Available [facility] 06/29/2022 04:47:12 Influenza, split virus, trivalent, preservative 3 completed Not Available [facility] 06/29/2022 04:47:11 Influenza, split virus, quadrivalent, preservative 6 completed Not Available [facility] 06/29/2022 04:47:12 Influenza, MDCK, quadrivalent, PF 8 completed Not Available [facility] 06/29/[facility] 04:47:12 Influenza, split virus, trivalent, PF 0 completed Not Available [facility] 06/29/2022 04:47:12 Influenza, split virus, trivalent, preservative 4 completed Not Available [facility] 06/29/2022 04:47:12 Influenza, high-dose, quadrivalent, PF 1 completed Not Available [facility] 06/29/2022 04:47:12 Influenza, split virus, quadrivalent, PF 7 completed Not Available [facility] 06/29/2022 04:47:12 Influenza, high-dose, quadrivalent, PF 2 completed Not Available [facility] 06/29/2022 04:47:12 COVID-19, mRNA, LNP-S, bivalent, PF, 50 mcg/0.5 mL or 25mcg/0.25 mL dose 2 completed Not Available [facility] 06/29/2022 04:47:11 Influenza, split virus, quadrivalent, PF 5 completed LIN Botello, [facility] 07/27/2022 10:45:49 pneumococcal polysaccharide PPV23 1 completed LIN Botello, [facility] 07/27/2022 10:45:49 Td (adult), 2 Lf tetanus toxoid, preservative free, adsorbed 8 completed LIN Botello, [facility] 07/27/2022 10:45:49 Influenza, adjuvanted, trivalent, PF 4 completed LIN Jj, [facility] 06/08/2024 10:59:15 Pneumococcal conjugate PCV20, polysaccharide [id number] conjugate, adjuvant, PF 4 completed LIN Botello, [facility] 07/25/2024 13:27:35 Influenza, adjuvanted, trivalent, PF 5 completed Not Available [facility] 07/16/2025 10:10:52 Influenza, high-dose, quadrivalent, PF 3 completed Almita Villalobos PA-C [address], [address], [facility] 05/18/2023 11:07:50 Past Encounters Encounter ID Performer Location Encounter Start Date Encounter Closed Date Diagnosis/Indication Diagnosis SNOMED-CT Code Diagnosis ICD10 Code Diagnosis IMO Codes Diagnosis Note [id number] Brodie Ruiz MD Main Office [address] [facility] [address] [place] [address] 04/12/2025 10:28:06 04/12/2025 11:16:49 Upper respiratory tract finding 711834407 R09.89 [id number] Flu A and B and COVID tests are negative. Pt is advised to increase hydration, take Mucinex DM for congestion , rest. 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 F/u 6-8 week. [id number] Brodie Ruiz MD Main Office [address] [place] [address] 04/16/2025 13:54:43 04/16/2025 14:54:38 Renal disorder due to type 2 diabetes mellitus 306987652 E11.22 Great diabetic control with A1c of 5.3%.Recom to increase Ozempic to max dose due to weight plateaued out with BMI at 38.1. Pt tolerates medication well. WE will follow up in 3 m. Chronic ki dney disease stage 1 [id number] N18.1 Continue losartan 100 mg daily. Hypertensi ve renal disease 44789169 I12.9 stable on current meds. continue medicaton and low sodium diet. Recom weekly blood pressure home monitoring . repeat bmp. Hyperlipidemia 60905022 E78.49 2251267 Lipid panel showed hyperlipid emia with LDL: 136, Cholestero l: 222 and triglyceri fabiana: 152.Recc to pt to continue rosuvastat in 20 mg 0.5 tabs daily and retest lipids. Acute left otitis media 593732706 H66.92 [id number] begin antibiotic treatment as directed as well as non stimulant decongesta nt as discussed. [id number] Meena Greco MD Tele[facility] [address] [facility] [address] [place] [address] 04/30/2025 12:34:55 04/30/2025 15:22:14 Dysuria 28175209 R30.0 SYMPTOMS: burning with urination? yes frequency? yes hematuria? yes lower abdominal pain? yes symptoms similar to previous UTI? yes POSSIBLE CONTRAINDI CATIONS TO TELEPHONE TREATMENT: > 65 years of age? yes fevers? no recent UTI (within 1 month)? no new low back pain? no nausea or vomiting? no ? no history of interstiti al cystitis? no PROVIDER ACTION: Reviewed nursing notes? Recommende d action Antibiotic treatment Urinary symptoms [id number] 08 R39.9 [id number] pt will get urine sample - will rx empiricall y c cipro cont push fluids, consider prn pyridium recommend probiotics while on abx Health Concerns Section Related Observation LastModified by Organization Detai ls LastModified Time None Recorded Concern Status LastModified by Organization Details LastModified Time None Recorded Payers Encounter Date Sequence Insurance Name Policy Number Policy Munson Covered Member ID Munson Member ID Guarantor Name 04/30/2025 1 [facility]: MEDICARE HMO BLUE (MEDICARE REPLACEMENT HMO) [id number] Kanchan Joiner [id number] Kanchan Joiner Notes Date Note Type Note Provider Name and Address Organization Details Recorded Time 04/30/2025 text/html Patient c/o possible UTI x 2 days.no h/o recurrent utidid take abx 2 wks ago for OMdenies yeast infxnc/o dysuria, freq, hematuria Jonas Villalobos PA-C [address] [address], [place], [address], [facility] 04/30/2025 14:36:05 OBGyn Episode No OBEpisode recorded.
--- OUTSIDE RECORDS SUMMARY | 2025-07-29 19:57 | XMS_ITS | Clinical Summary ---
Author Organization [facility] Address [address] [place], [place] [id number] Phone Care Team Providers Care Transmission Maintenance Supervisor Name Role Phone Almita George Primary Care Provi kristina Social History Tobacco Use Types Packs/Day Years Used Date Smoking Tobacco: Never Assessed Education Answer Date Recorded Are you interested in more education? Not on nora e 10/09/2024 Are you concerned about learning? Not on file 10/09/2024 No 10/09/2024 No 10/09/2024 Digital Access Answer Date Recorded No 10/09/2024 No 10/09/2024 Reliable internet access at home? Not on file 10/09/2024 Device with a working camera? Not on file Comments Unknown Sex and Gender Information Value Date Recorded Sex Assigned at Not on file Legal Sex Female 9:32 AM EST Gender Identity Not on file Sexual Orientation Not on file Plan of Treatment Not on file Medical Devices Not on file [place]UE REPLACEMENT [facility] MEDICARE HMO BLUE REPLACEMENT [place] Care Teams Transmission Maintenance Supervisor Relationship Specialty Start Date End Date Almita George PA [address] [address] PCP - General Physician Collection Officer 10/08/24 Additional Source Comments The information contained in this document represents components of the legal health record. It is not the complete legal health record.[facility]
--- OUTSIDE RECORDS SUMMARY | 2025-07-29 19:57 | XMS_ITS | Data Portability ---
Author Organization [facility], Main Office Address [address] [facility] [address] [place] [address] Care Team Providers Care Chemical Analytical Sampler Name Role Phone PEPPER BOCANEGRA Orthopedic Surgeon GUTIERREZ EDOUARD Firestopper Technician [phone] AIDAN MONK Sales Team Leader [phone] [facility]MARKUS REY[facility]GA) Orthopedic Surgeon [facility] Sports Medic ine [facility] Satellite Installation Technician LORENZO BOYKIN Urologist JUMANA VILLALOBOS Primary Care Provider [phone] Assessment Encounter Date Assessment Date Assessment LastModified by Organization Details LastModified Time 04/30/2025 04/30/2025 This service was provided using telemedicine. Patient consented to video & audio visit Patient was located at home in the [facility]. Provider was located in the office. [...] Not available Not available Not available Lab BMP, serum or plasma 2024 025 POLLY [facility] (Centralized Electronic Ordering - All Locations), Patient Can Go To The Location Of Their Choice, [id number] 07/16/2025 10:34:10 hemogl obin A1C, finger stick 2024 025 In-Office Order, Internal Use Only DO Not Attach Compendium DO Not Attach Compendium, Do Not Delete/merge, 07/16/2025 11:01:48 lipid panel, serum 2024 025 PO[facility] (Centralized Electronic Ordering - All Locations), Patient Can Go To The Location Of Their Choice, 07/16/2025 10:34:12 cultur e, urine 2024 025 POLLY [facility] (Centralized Electronic Ordering - All Locations), Patient Can Go To The Location Of Their Choice, 05/02/2025 06:08:37 urinal ysis macro (dipst ick) panel, urine 2024 025 PO[facility] (Centralized Electronic Ordering - All Locations), Patient Can Go To The Location Of Their Choice, 05/01/2025 08:08:03 BMP, serum or plasma 2024 025 PO[facility] (Centralized Electronic Ordering - All Locations), Patient Can Go To The Location Of Their Choice, 04/16/2025 14:10:55 hemogl obin A1C, finger stick 2024 025 POLLY In-Office Order, Internal Use Only DO Not Attach Compendium DO Not Attach Compendium, Do Not Delete/merge, 04/16/2025 14:24:15 lipid panel, serum 2024 025 PO[facility] (Centralized Electronic Ordering - All Locations), Patient Can Go To The Location Of Their Choice, 04/16/2025 14:10:55 rapid flu (A+B) 2024 025 POLLY In-Office Order, Internal Use Only DO Not Attach Compendium DO Not Attach Compendium, Do Not Delete/merge, 04/12/2025 11:26:04 rapid SARS CoV 2 Ag, QL IA, respir atory specim en 2024 025 POLLY In-Office Order, Internal Use Only DO Not Attach Compendium DO Not Attach Compendium, Do Not Delete/merge, [id number] 04/12/2025 11:26:15 Referral neurol ogist referr liliana rai with RT arm pain/n umbnes s in 2022, resolv ed and now back again since r 2024. 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 [id number] [place] [address] (Imaging), [address] [place] [address], [id number], 06/21/2025 16:22:01 Surgeries None record ed. Imaging None record ed. Medication Orders ciprof loxaci n 250 mg tablet 2024 025 [facility], [address] [place], [address], 05/10/2025 05:01:33 Ozempi c 2 mg/dos e (8 mg/3 mL) subcut aneous pen inject or 2024 025 cynthia beauchamp [facility], [address] [place], [address], 04/30/2025 14:13:49 cefdin ir 300 mg capsul e 2024 025 [facility], [address] [place], [address], 04/30/2025 05:01:41 trazod one 50 mg tablet 2024 025 [facility], [address] [place], [address], 04/12/2025 11:03:04 Patient TargetsNo targets recorded. Patient Instructions Encounter Date Encounter Id Patient Instructions Last Modified By Organization Details Last Modified Time 04/16/2025 [id number] high cholesterol : care instructions Not available 04/16/2025 14:45:15 chronic kidney disease: care instructions Not available 04/16/2025 14:45:15 learning about chronic kidney disease Not available 04/16/2025 14:45:15 Medications (OTC , herbal therapies, supplements) reviewed and reconciled with patient and or caregiver, including potential side effects, drug interactions, instructions, and the consequences of not taking medication. Reviewed potential barriers to medication adherence, such as side effects from medication or cost of medication. Not available 04/16/2025 14:17:08 04/30/2025 [id number] Follow up if no improvement or if symptoms worsen. pmadden Not available 04/30/2025 14:34:56 07/16/2025 [id number] dash diet: care instructions Not available 07/16/2025 10:38:19 chronic kidney disease: care instructions Not available 07/16/2025 10:33:59 learning about chronic kidney disease Not available 07/16/2025 10:33:59 Medications (OTC , herbal therapies, supplements) reviewed and reconciled with patient and or caregiver, including potential side effects, drug interactions, instructions, and the consequences of not taking medication. Reviewed potential barriers to medication adherence, such as side effects from medication or cost of medication. Not available 07/16/2025 10:15:55 Reason for Referral Neurologist Referral for Isidra n in right arm Patient with RT arm pain/numbness in 2022, resolved and now back again since May 2025. Referring Physician: Rupesh Vallecillo, Family Medicine, Encounter Date: 06/20/2025 Results Created Date Observation Date Name Description Value Unit Range Abnormal Flag Note LastModifiedBy Organization Detail LastModifiedTime 04/12/2004/12/2025 rapid SARS CoV 2 Ag, QL IA, respi rator y speci men RAPID SARS COV 2 negati ve Not Available In-Office Order Internal Use Only DO Not Attach Compendium DO Not Attach Compendium, Do Not Delete/merge, [id number] 04/12/2025 10:41:23 04/12/2004/12/2025 rapid flu (A+B) Flu A negati ve Not Available In-Office Order Internal Use Only DO Not Attach Compendium DO Not Attach Compendium, Do Not Delete/merge, [id number] 04/12/2025 10:37:16 04/12/20 25 04/12/2025 rapid flu (A+B) Flu B negati ve Not Available In-Office Order Internal Use Only DO Not Attach Compendium DO Not Attach Compendium, Do Not Delete/merge, [id number] 04/12/2025 10:37:16 04/16/2004/16/2025 hemog lobin A1C, finge rstic k A1C 5.3 % 4-6 normal Not Available In-Office Order Internal Use Only DO Not Attach Compendium DO Not Attach Compendium, Do Not Delete/merge, [id number] 04/16/2025 12:07:34 04/30/20 25 05/01/2025 URINA LYSIS , ROUTI NE specific gravity 1.027 1.005- 1.030 normal Not Available [facility] ([facility]) [address] [place], [address], 05/01/2025 08:08:03 04/30/2005/01/2025 URINA LYSIS , ROUTI NE pH 5.5 5.0-7. 5 normal Not Available [facility] ([facility]) [address] [place], [address], 05/01/2025 08:08:03 04/30/2005/01/2025 URINA LYSIS , ROUTI NE urine-color [place] yellow Not Available [facility] ([facility]) [address] [place], [address], 05/01/2025 08:08:03 04/30/20 25 05/01/2025 URINA LYSIS , ROUTI NE appearance Turbid clear abnormal Not Available [facility] ([facility]) [address] [place], [address], 05/01/2025 08:08:03 04/30/20 25 05/01/2025 URINA LYSIS , ROUTI NE WBC esterase 2+ negati ve abnormal Not Available [facility] ([facility]) [address] [facility], [place], [address], 05/01/2025 08:08:03 04/30/20 25 05/01/2025 URINA LYSIS , ROUTI NE protein 3+ negati ve/tra ce abnormal Not Available [facility] ([facility]) [address] [facility], [place], [address], 05/01/2025 08:08:03 04/30/20 25 05/01/2025 URINA LYSIS , ROUTI NE glucose Negati ve negati ve Not Available [facility] ([facility]) [address] [place], [address], 05/01/2025 08:08:03 04/30/20 25 05/01/2025 URINA LYSIS , ROUTI NE ketones Negati ve negati ve Not Available [facility] ([facility]) [address] [place], [address], 05/01/2025 08:08:03 04/30/20 25 05/01/2025 URINA LYSIS , ROUTI NE occult blood 2+ negati ve abnormal Not Available [facility] ([facility]) [address] [facility], [place], [address], 05/01/2025 08:08:03 04/30/20 25 05/01/2025 URINA LYSIS , ROUTI NE bilirubin Positi ve negati ve abnormal Posit zoila resul ts have been confi rmed. Not Available [facility] ([facility]) [address] [place], [address], 05/01/2025 08:08:03 04/30/20 25 05/01/2025 URINA LYSIS , ROUTI NE urobilinogen ,semi-qn 1.0 mg/dL 0.2-1. 0 normal Not Available [facility] ([facility]) [address] [place], [address], 05/01/2025 08:08:03 04/30/20 25 05/01/2025 URINA LYSIS , ROUTI NE nitrite, urine Positi ve negati ve abnormal Not Available [facility] ([facility]) [address] [place], [address], 05/01/2025 08:08:03 04/30/20 25 05/01/2025 URINA LYSIS , ROUTI NE microscopic examination See below: Micro scopi c was indic ated and was perfo rmed. Not Available [facility] ([facility]) [address] [place], [address], 05/01/2025 08:08:03 04/30/20 25 05/01/2025 URINA LYSIS , ROUTI NE WBC >30 /hpf 0 - 5 abnormal Not Available [facility] ([facility]) [address] [place], [address], 05/01/2025 08:08:03 04/30/20 25 05/01/2025 URINA LYSIS , ROUTI NE RBC >30 /hpf 0 - 2 abnormal Not Available [facility] ([facility]) [address] [place], [address], 05/01/2025 08:08:03 04/30/20 25 05/01/2025 URINA LYSIS , ROUTI NE epithelial cells (non renal) 0-10 /hpf 0 - 10 Not Available [facility] ([facility]) [address] [place], [address], 05/01/2025 08:08:03 04/30/20 25 05/01/2025 URINA LYSIS , ROUTI NE epithelial cells (renal) BOXING TRAINER Not Available [facility] ([facility]) [address] [place], [address], 05/01/2025 08:08:03 04/30/2005/01/2025 URINA LYSIS , ROUTI NE casts None seen /lpf none seen Not Available [facility] ([facility]) [address], [place], [address], 05/01/2025 08:08:03 04/30/2005/01/2025 URINA LYSIS , ROUTI NE cast type BOXING TRAINER Not Available [facility] ([facility]) [address], [place], [address], 05/01/2025 08:08:03 04/30/2005/01/2025 URINA LYSIS , ROUTI NE crystals BOXING TRAINER Not Available [facility] ([facility]) [address] [facility], [place], [address], 05/01/2025 08:08:03 04/30/2005/01/2025 URINA LYSIS , ROUTI NE crystal type BOXING TRAINER Not Available [facility] ([facility]) [address] [facility], [place], [address], 05/01/2025 08:08:03 04/30/2005/01/2025 URINA LYSIS , ROUTI NE mucus threads BOXING TRAINER Not Available [facility] ([facility]) [address] [facility], [place], [address], 05/01/2025 08:08:03 04/30/2005/01/2025 URINA LYSIS , ROUTI NE bacteria Many none seen/f ew abnormal Not Available [facility] ([facility]) [address] [facility], [place], [address], 05/01/2025 08:08:03 04/30/2005/01/2025 URINA LYSIS , ROUTI NE yeast BOXING TRAINER Not Available [facility] ([facility]) [address] [facility], [place], [address], 05/01/2025 08:08:03 04/30/20 25 05/01/2025 URINA LYSIS , ROUTI NE trichomonas BOXING TRAINER Not Available [facility] ([facility]) [address] [facility], [place], [address], 05/01/2025 08:08:03 04/30/20 25 05/01/2025 URINA LYSIS , ROUTI NE comment BOXING TRAINER Not Available [facility] ([facility]) [address] [facility], [place], [address], 05/01/2025 08:08:03 04/30/20 25 05/01/2025 URINE CULTU RE, ROUTI NE urine culture, routine Final report Not Available [facility] ([facility]) [address] [facility], [place], [address], 05/02/2025 06:08:37 04/30/20 25 05/01/2025 URINE CULTU RE, GRISI NE result 1 COMMEN T Mixed uroge nital thiago Great er than 100,0 00 colon y formi ng units per mL Not Available [facility] ([facility]) [address] [facility], [place], [address], 05/02/2025 06:08:37 07/16/20 25 07/16/2025 hemog lobin A1C, finge rstic k A1C 5.2 % 4-6 normal Not Available In-Office Order Internal Use Only DO Not Attach Compendium DO Not Attach Compendium, Do Not Delete/merge, [id number] 07/16/2025 10:21:25 Result Notes None recorded. Problems Name Problem SNOMED Code Status Onset Date Resolution Date Notes Provider Name and Address Organization Details Recorded Time Dysuria 65824260 Completed 08/02/2017 RAJESH Zarate [address] [facility] [address], [facility] [place], [address] , [facility] 4 13:42:37 Depressi ve disorder 06773202 Completed 08/02/2017 Cecelia martinez, [facility] 7 14:57:07 Fatigue 07287099 Completed 01/26/2017 Shikha martinez, [facility] 7 12:48:11 Vertigo 478165488 Completed 08/02/2017 Cecelia Sahyy kleinenztato martinez [facility] 7 14:57:16 Arthropa thy of knee joint 239122458 Completed 08/02/2017 Cecelia martinez, [facility] 7 14:56:45 Pneumoni a 577572845 Completed 08/02/2017 LIN Pavon, [facility] 7 14:38:57 Administ ration of bacteria l and viral vaccine Completed 200702/26/2014 RECORDED 04/22/20 08 11:02AM BY AUBREY BAILEY MA, OFFICE VISIT Jumana Villalobos PA-C [address] [facility] [address], [place], [address] , [facility] 6 14:10:13 Pain of hip region 10329416 Completed 200702/26/2014 IMPRESSI ON: LEFT HIP PAIN WITH KNOWN ARTHRITI S, WILL CHECK XRAY AND REFER TO ORTHO, NEW PROBLEM, KNOWN OA, TREAT WITH MOTRIN, WATER EXERCISE S; RECORDED 04/22/20 08 10:35AM BY KRISHNA HUGGINS ON/ADDEN DUM Jumana Villalobos PA-C [address] [facility] [address], [place], [address] , [facility] 6 14:10:12 Administ ration of bacteria l and viral vaccine Completed 200703/21/2014 RECORDED 04/22/20 08 11:02AM BY AUBREY BAILEY MA, OFFICE VISIT Jumana Villalobos PA-C [address] [facility] [address], [place], [address] , [facility] 6 14:10:13 Pain of hip region 16471191 Completed 200703/21/2014 IMPRESSI ON: LEFT HIP PAIN WITH KNOWN ARTHRITI S, WILL CHECK XRAY AND REFER TO ORTHO, NEW PROBLEM, KNOWN OA, TREAT WITH MOTRIN, WATER EXERCISE S; RECORDED 04/22/20 08 10:35AM BY CLARE CONTRERAS, KRISHNA ON/ADDEN DUM Jumana Ariel IA-C [address], [place], [address] , [facility] 6 14:10:12 Administ ration of bacteria l and viral vaccine Completed 200703/22/2014 RECORDED 04/22/20 08 11:02AM BY AUBREY BAILEY MA, OFFICE VISIT Jumana FLETCHER-C [address], [place], [address] , [facility] 6 14:10:13 Pain of hip region 24488973 Completed 200703/22/2014 IMPRESSI ON: LEFT HIP PAIN WITH KNOWN ARTHRITI S, WILL CHECK XRAY AND REFER TO ORTHO, NEW PROBLEM, KNOWN OA, TREAT WITH MOTRIN, WATER EXERCISE S; RECORDED 04/22/20 08 10:35AM BY CLARE CONTRERAS, KRISHNA ON/ADDEN DUM Jumana Villalobos IA-C [address], [place], [address] , [facility] 6 14:10:12 Screenin g for malignan t neoplasm of colon Completed 200702/26/2014 RECORDED 07/31/20 08 11:15AM BY AUBREY BAILEY MA, ANNOTATI ON/ADDEN DUM Jumana Ariel FLETCHER-C [address], [place], [address] , [facility] 6 14:10:13 Screenin g for malignan t neoplasm of colon Completed 200703/21/2014 RECORDED 07/31/20 08 11:15AM BY AUBREY BAILEY MA, ANNOTATI ON/ADDEN DUM Jumana Villalobos PA-C [address], [place], [address] , [facility] 6 14:10:13 Screenin g for malignan t neoplasm of colon Completed 200703/22/2014 RECORDED 07/31/20 08 11:15AM BY AUBREY BAILEY MA, SUZETTEATI ON/ADDEN DUM Jumana Villalobos PA-C [address], [place], [address] , [facility] 6 14:10:13 Cough 62686848 Completed 200802/26/2014 RECORDED 09/18/19 09 1:00PM BY KRISHNA LEES ON/ADDEN DUM Jumana Villalobos PA-C [address], [place], [address] , [facility] 6 14:10:12 Cough 59775714 Completed 200803/21/2014 RECORDED 09/18/19 09 1:00PM BY KRISHNA LEES ON/ADDEN DUM Jumana Villalobos PA-C [address], [place], [address] , [facility] 6 14:10:12 Cough 21674616 Completed 200803/22/2014 RECORDED 09/18/19 09 1:00PM BY KRISHNA LEES ON/ADDEN DUM Jumana Villalobos PA-C [address], [place], [address] , [facility] 6 14:10:12 Acute sinusiti s 01599201 Completed 200902/26/2014 RECORDED 06/19/20 10 9:07AM BY KRISHNA ROSAS ON/ADDEN DUM Jumana Villalobos PA-C [address], [place], [address] , [facility] 6 14:10:12 Chronic nonalcoh olic liver disease 82151719 Completed 200902/26/2014 IMPRESSI ON: CHECK LFT'S; RECORDED 06/19/20 10 9:06AM BY SUZETTE ROSASATI ON/ADDEN DUM [facility] 12:[facility]10 Acute sinusiti s 00128551 Completed 200903/21/2014 RECORDED 06/19/20 10 9:07AM BY KRISHNA ROSAS ON/ADDEN DUM Jumana Villalobos PA-C [address], [place], [address] , [facility] 6 14:10:12 Acute sinusiti s 03351463 Completed 200903/22/2014 RECORDED 06/19/20 10 9:07AM BY KRISHNA ROSAS ON/ADDEN DUM Jumana Ariel PA-C [address] [facility], [place], [address] , [facility] 6 14:10:12 Abdomina l pain 83781114 Completed 201102/26/2014 RECORDED 06/05/20 12 1:40PM BY KRISHNA PAVON ON/ADDEN DUM Jumana Ariel PA-C [address] [facility], [place], [address] , [facility] 6 14:10:12 Left lower quadrant pain 491582453 Completed 201102/26/2014 RECORDED 06/05/20 12 1:40PM BY KRISHNA PAVON ON/ADDEN DUM Jumana Villalobos PA-C [address] [facility], [place], [address] , [facility] 6 14:10:13 Allergic rhinitis 00678928 Completed 201102/26/2014 IMPRESSI ON: CONTINUE NASAL SPRAY; RECORDED 06/05/20 12 1:40PM BY KRISHNA PAVON ON/ADDEN DUM Jumana Villalobos PA-C [address] [facility] [address], [place], [address] , [facility] 6 14:10:12 Screenin g for malignan t neoplasm of breast Completed 201102/26/2014 RECORDED 06/05/20 12 1:40PM BY KRISHNA PAVON ON/ADDEN DUM Jumana Villalobos PA-C [address] [facility] [address], [place], [address] , [facility] 6 14:10:13 Screenin g for malignan t neoplasm of cervix Completed 201102/26/2014 RECORDED 06/05/20 12 1:40PM BY KRISHNA PAVON ON/ADDEN DUM Jumanazahraa FLETCHER-C [address] [facility] [address], [place], [address] , [facility] 6 14:10:13 Malaise and fatigue 994398362 Completed 201102/26/2014 RECORDED 06/05/20 12 1:40PM BY KRISHNA PAVON ON/ADDEN DUM Jumana Villalobos PA-C [address] [facility] [address], [place], [address] , [facility] 6 14:10:12 Right upper quadrant pain 947249883 Completed 201102/26/2014 IMPRESSI ON: R SIDED ABD [...] 12 1:40PM BY KRISHNA PAVON ON/ADDEN DUM Jumana Villalobos PA-C [address], [place], [address] , [facility] 6 14:10:13 Abdomina l pain 23351303 Completed 201103/21/2014 RECORDED 06/05/20 12 1:40PM BY KRISHNA PAVON ON/ADDEN DUM Jumana Villalobos PA-C [address], [place], [address] , [facility] 6 14:10:13 Left lower quadrant pain 571002398 Completed 201103/21/2014 RECORDED 06/05/20 12 1:40PM BY KRISHNA PAVON ON/ADDEN DUM Jumana Villalobos PA-C [address], [place], [address] , [facility] 6 14:10:13 Allergic rhinitis 44611986 Completed 201103/21/2014 IMPRESSI ON: CONTINUE NASAL SPRAY; RECORDED 06/05/20 12 1:40PM BY KRISHNA PAVON ON/ADDEN DUM Jumana Villalobos PA-C [address], [place], [address] , [facility] 6 14:10:12 Screenin g for malignan t neoplasm of breast Completed 201103/21/2014 RECORDED 06/05/20 12 1:40PM BY KRISHNA PAVON ON/ADDEN DUM Jumana Villalobos PA-C [address], [place], [address] , [facility] 6 14:10:13 Screenin g for malignan t neoplasm of cervix Completed 201103/21/2014 RECORDED 06/05/20 12 1:40PM BY KRISHNA PAVON ON/ADDEN DUM Jumana Villalobos PA-C [address], [place], [address] , [facility] 6 14:10:13 Malaise and fatigue 622663304 Completed 201103/21/2014 IMPRESSI ON: CONTINUE MEDS, KEEPING MOOD EVEN; RECORDED 06/05/20 12 1:39PM BY KRISHNA PAVON ON/ADDEN DUM Jumana Ariel PA-C [address], [place], [address] , [facility] 6 14:10:12 Right upper quadrant pain 063537619 Completed 201103/21/2014 IMPRESSI ON: R SIDED ABD [...] 12 1:40PM BY KRISHNA PAVON ON/ADDEN DUM Jumana FLETCHER-C [address] [facility] [address], [place], [address] , [facility] 6 14:10:13 Abdomina l pain 63457062 Completed 201103/22/2014 RECORDED 06/05/20 12 1:40PM BY KRISHNA PAVON ON/SHELLEYEN DUM Jumana FLETCHER-C [address], [place], [address] , [facility] 6 14:10:13 Left lower quadrant pain 302001657 Completed 201103/22/2014 RECORDED 06/05/20 12 1:40PM BY KRISHNA PAVON ON/ADDEN DUM Jumana Ariel PA-C [address], [place], [address] , [facility] 6 14:10:13 Allergic rhinitis 00880804 Completed 201103/22/2014 IMPRESSI ON: CONTINUE NASAL SPRAY; RECORDED 06/05/20 12 1:40PM BY KRISHNA PAVON ON/ADDEN DUM Jumana Villalobos PA-C [address] [facility] [address], [place], [address] , [facility] 6 14:10:12 Screenin g for malignan t neoplasm of breast Completed 201103/22/2014 RECORDED 06/05/20 12 1:40PM BY KRISHNA PAVON ON/ADDEN DUM Jumana Villalobos PA-C [address] [facility] [address], [place], [address] , [facility] 6 14:10:13 Screenin g for malignan t neoplasm of cervix Completed 201103/22/2014 RECORDED 06/05/20 12 1:40PM BY KRISHNA PAVON ON/ADDEN DUM Jumnaa Villalobos PA-C [address] [facility] [address], [place], [address] , [facility] 6 14:10:13 Malaise and fatigue 829903316 Completed 201103/22/2014 IMPRESSI ON: CONTINUE MEDS, KEEPING MOOD EVEN; RECORDED 06/05/20 12 1:39PM BY KRISHNA PAVON ON/SHELLEYRADHA DUM Jumana Villalobos PA-C [address] [facility] [address], [place], [address] , [facility] 6 14:10:12 Right upper quadrant pain 611539089 Completed 201103/22/2014 IMPRESSI ON: R SIDED ABD [...] 12 1:40PM BY KRISHNA PAVON ON/ADDEN DUM Jumanaaudelia Motaden PA-C [address], [place], [address] , [facility] 6 14:10:13 Acne 62169614 Completed 201102/26/2014 IMPRESSI ON: IS OFF DOXYCYCL INE, MAY HAVE BEEN RELATED TO THER VERTIGO, NO HEADACHE OR OTHER NEUROLOG ICAL ISSUES; RECORDED 08/14/20 12 9:35AM BY MUSA VILLALOBOS MA, KRISHNA ON/ADDEN DUM Jumana Villalobos PA-C [address], [place], [address] , [facility] 6 14:10:12 Follow-u p encounte r Completed 201102/26/2014 RECORDED 08/14/20 12 9:35AM BY MUSA VILLALOBOS MA, KRISHNA ON/ADDEN DUM Jumana Villalobos PA-C [address], [place], [address] , [facility] 6 14:10:13 Family history of Cardiova scular disease [id number] Completed 201102/26/2014 IMPRESSI ON: OT WITH NEG US OF ABDOMEN THIS MONTH AND HAD CT OF ABDOMEN 03/24 THAT SHOWED A NL AORTA, NO ANEURYSM , NO FURTHER WORKUP NEEDED.; RECORDED 08/14/20 12 9:35AM BY MUSA VILLALOBOS MA, KRISHNA ON/ADDEN DUM Jumana Villalobos PA-C [address], [place], [address] , [facility] 6 14:10:13 Fibromyo sitis 83454275 Completed 201102/26/2014 RECORDED 08/14/20 12 9:35AM BY MUSA VILLALOBOS MA, KRISHNA ON/ADDEN DUM Jumana Villalobos SALIMA [address], [place], [address] , [facility] 6 14:10:12 Dizzines s and giddines s [id number] Completed 201102/26/2014 IMPRESSI ON: HAD IN THE PAST IMPROVIN G, NOTE FOR WORK WRITTEN, USE MECLIZIN E NEEDED. IF NOT IMPROVIN G PT TO SET UP APPT WITH ENT AND MAY NEED REHAB.; RECORDED 08/14/20 12 9:35AM BY MUSA VILLALOBOS MA, KRISHNA ON/ADDEN DUM Jumana Ariel BORREGO [address], [place], [address] , [facility] 6 14:10:12 Herpes zoster [id number] Completed 201102/26/2014 RECORDED 08/14/20 12 9:35AM BY MUSA VILLALOBOS MA, KRISHNA ON/ADDEN DUM Jumana Villalobos PA-C [address] [facility] [address], [place], [address] , [facility] 6 14:10:12 Acne [id number] Completed 201103/21/2014 IMPRESSI ON: IS OFF DOXYCYCL INE, MAY HAVE BEEN RELATED TO THER VERTIGO, NO HEADACHE OR OTHER NEUROLOG ICAL ISSUES; RECORDED 08/14/20 12 9:35AM BY MUSA VILLALOBOS MA, KRISHNA ON/SHELLEYEN DUM Jumana Villalobos PA-C [address] [facility] [address], [place], [address] , [facility] 6 14:10:12 Follow-u p encounte r Completed 201103/21/2014 RECORDED 08/14/20 12 9:35AM BY MUSA VILLALOBOS MA, KRISHNA ON/ADDEN DUM Jumana Villalobos PA-C [address] [facility] [address], [place], [address] , [facility] 6 14:10:13 Family history of Cardiova scular disease [id number] Completed 201103/21/2014 IMPRESSI ON: OT WITH NEG US OF ABDOMEN THIS MONTH AND HAD CT OF ABDOMEN 03/24 THAT SHOWED A NL AORTA, NO ANEURYSM , NO FURTHER WORKUP NEEDED.; RECORDED 08/14/20 12 9:35AM BY MUSA VILLALOBOS MA, KRISHNA ON/ADDEN DUM Jumana Villalobos PA-C [address], [place], [address] , [facility] 6 14:10:13 Fibromyo sitis [id number] Completed 201103/21/2014 RECORDED 08/14/20 12 9:35AM BY MUSA VILLALOBOS MA, KRISHNA ON/DUC DUM Jumana Villalobos PA-C [address], [place], [address] , [facility] 6 14:10:12 Dizzines s and giddines s [id number] Completed 201103/21/2014 IMPRESSI ON: HAD IN THE PAST IMPROVIN G, NOTE FOR WORK WRITTEN, USE MECLIZIN E NEEDED. IF NOT IMPROVIN G PT TO SET UP APPT WITH ENT AND MAY NEED REHAB.; RECORDED 08/14/20 12 9:35AM BY MUSA VILLALOBOS MA, KRISHNA ON/DUC DUM Jumana Villalobos PA-C [address], [place], [address] , [facility] 6 14:10:12 Herpes zoster [id number] Completed 201103/21/2014 RECORDED 08/14/20 12 9:35AM BY MUSA VILLALOBOS MA, KRISHNA ON/DUC Villalobos PA-C [address], [place], [address] , [facility] 6 14:10:12 Acne [id number] Completed 201103/22/2014 IMPRESSI ON: IS OFF DOXYCYCL INE, MAY HAVE BEEN RELATED TO THER VERTIGO, NO HEADACHE OR OTHER NEUROLOG ICAL ISSUES; RECORDED 08/14/20 12 9:35AM BY MUSA VILLALOBOS MA, KRISHNA ON/ADDEN DUM Jumana Villalobos PA-C [address], [place], [address] , [facility] 6 14:10:12 Follow-u p encounte r Completed 201103/22/2014 RECORDED 08/14/20 12 9:35AM BY MUSA VILLALOBOS MA, KRISHNA ON/ADDEN DUM Jumana Villalobos PA-C [address], [place], [address] , [facility] 6 14:10:13 Family history of Cardiova scular disease [id number] Completed 201103/22/2014 IMPRESSI ON: OT WITH NEG US OF ABDOMEN THIS MONTH AND HAD CT OF ABDOMEN 03/24 THAT SHOWED A NL AORTA, NO ANEURYSM , NO FURTHER WORKUP NEEDED.; RECORDED 08/14/20 12 9:35AM BY MUSA VILLALOBOS MA, KRISHNA ON/ADDEN DUM Jumana Villalobos PA-C [address] [facility] [address], [place], [address] , [facility] 6 14:10:13 Fibromyo sitis [id number] Completed 201103/22/2014 RECORDED 08/14/20 12 9:35AM BY MUSA VILLALOBOS MA, KRISHNA ON/ADDEN DUM Jumana Villalobos PA-C [address] [facility] [address], [place], [address] , [facility] 6 14:10:12 Dizzines s and giddines s [id number] Completed 201103/22/2014 IMPRESSI ON: HAD IN THE PAST IMPROMAMIE G, NOTE FOR WORK WRITTEN, USE MECLIZIN E NEEDED. IF NOT IMPROVIN Bakari PT TO SET UP APPT WITH ENT AND MAY NEED REHAB.; RECORDED 08/14/20 12 9:35AM BY MUSA VILLALOBOS MA, KRISHNA ON/ADDEN DUM Jumana Villalobos PA-C [address] [facility] [address], [place], [address] , [facility] 6 14:10:12 Herpes zoster [id number] Completed 201103/22/2014 RECORDED 08/14/20 12 9:35AM BY MUSA VILLALOBOS MA, KRISHNA ON/ADDEN DUM Jumana Ariel BORREGO [address] [facility] [address], [facility] [place], [address] , [facility] 6 14:10:12 Blood chemistr y outside referenc e range 298189892 Completed 201202/26/2014 RECORDED 09/16/19 13 1:53AM BY KRISHNA PAVON ON/ADDEN DUM [facility] 12:47[facility] Essentia l hyperten cata 27332698 Completed 201202/26/2014 RECORDED 09/16/19 13 1:54AM BY KRISHNA PAVON ON/ADDEN DUM Shanita Louis null, [facility] 0 10:07:52 Essentia l hyperten cata 76314916 Completed 201203/21/2014 RECORDED 09/16/19 13 1:54AM BY KRISHNA PAVON ON/ADDEN DUM Shanita Louis null, [facility] 0 10:07:52 Essentia l hyperten cata 01567714 Completed 201203/22/2014 RECORDED 09/16/19 13 1:54AM BY KRISHNA PAVON ON/ADDEN DUM Shanita Louis null, [facility] 0 10:07:52 Tobacco user [id number] Completed 201202/26/2014 RECORDED 06/08/20 13 1:11PM BY KRISHNA SHAFFER ON/ADDEN DUM LIN Ling, [facility] 8 10:43:17 History of clinical finding in subject [id number] Completed 201201/26/2017 Shikha martinez, [facility] 7 12:48:01 Adult health examinat ion Completed 201202/26/2014 IMPRESSI ON: MAMMOGRA M, PAP SMEAR AND COLONOSC OPY UTD, IS TRYING TO HELP WITH WEIGHT LOSS; RECORDED 06/08/20 13 1:11PM BY SUZETTE SHAFFERATI ON/ADDEN DUM Shikha martinez, [facility] 7 12:47:45 Glucose level outside referenc e range 514292403 Completed 201202/26/2014 IMPRESSI ON: RECHECK FASTING AND A1C; RECORDED 06/08/20 13 1:11PM BY SUZETTE SHAFFERATI ON/ADDEN DUM Cecelia martinez, [facility] 9 16:04:41 Knee pain Completed 201202/26/2014 IMPRESSI ON: WILL BE GETTING INJECTIO NS; RECORDED 06/08/20 13 1:11PM BY KRISHNA SHAFFER ON/ADDEN DUM Jumana FLETCHER-C [address], [place], [address] , [facility] 6 14:10:12 Laborato ry procedur e performe d [id number] Completed 201202/26/2014 RECORDED 06/08/20 13 1:11PM BY KRISHNA SHAFFER ON/ADDEN DUM Jumana FLETCHER-C [address] [facility] [address], [place], [address] , [facility] 6 14:10:13 Tobacco user [id number] Completed 201203/21/2014 RECORDED 06/08/20 13 1:11PM BY SUZETTE SHAFFERATI ON/ADDEN DUM Aubrey zelaya MA null, [facility] 8 10:43:17 Knee pain Completed 201203/21/2014 IMPRESSI ON: WILL BE GETTING INJECTIO NS; RECORDED 06/08/20 13 1:11PM BY SUZETTE SHAFFERATI ON/ADDEN DUM Jumana Villalobos PA-C [address], [place], [address] , [facility] 6 14:10:12 Laborato ry procedur e performe d [id number] Completed 201203/21/2014 RECORDED 06/08/20 13 1:11PM BY SUZETTE SHAFFERATI ON/ADDEN DUM Jumana Villalobos PA-C [address], [place], [address] , [facility] 6 14:10:13 Tobacco user [id number] Completed 201203/22/2014 RECORDED 06/08/20 13 1:11PM BY SUZETTE SHAFFERATI ON/ADDEN DUM Aubrey [facility]Brandi [facility] 8 10:43:17 Knee pain Completed 201203/22/2014 IMPRESSI ON: WILL BE GETTING INJECTIO NS; RECORDED 06/08/20 13 1:11PM BY KRISHNA SHAFFER ON/ADDEN DUM Jumana Villalobos PA-C [address], [place], [address] , [facility] 6 14:10:12 Laborato ry procedur e performe d [id number] Completed 201203/22/2014 RECORDED 06/08/20 13 1:11PM BY SUZETTE SHAFFERATI ON/ADDEN DUM Jumana Villalobos PA-C [address], [place], [address] , [facility] 6 14:10:13 Adult health examinat ion Completed 201301/26/2017 IMPRESSI ON: PAP, MAMMO AND COLONOSC OPY UTD, PT NEEDS TO WORK ON WEIGHT LOSS.; RECORDED 12/29/19 14 1:57PM BY CECELIA Massey MD, OFFICE VISIT Shikha martinez [facility] 7 12:47:45 Glucose level outside referenc e range 102399243 Completed 201303/14/2019 Cecelia martinez [facility] 9 16:04:41 Blood chemistr y outside referenc e range 845040353 Completed 201301/26/2017 Shikha martinez [facility] 7 12:47:40 Arthropa thy 995172688 Completed 201308/02/2017 Cecelia martinez [facility] 7 14:57:11 Enthesop athy of hip region 86218850 Completed 201308/02/2017 Cecelia martinez [facility] 7 14:57:04 Divertic ulitis of colon 767455316 Completed 201309/10/2024 Jumana Villalobos PA-C [address] [facility] [address], [place], [address] , [facility] 5 11:27:56 Gastroes ophageal reflux disease 118871721 Active 2013 Not Available [facility] 2 04:47:11 Chronic nonalcoh olic liver disease 10825290 Active 2013 Not Available [facility] 2 04:47:11 Pure hypercho lesterol emia 233964282 Completed 201308/02/2017 Cecelia martinez [facility] 7 14:56:42 Insomnia 128179292 Active 2013 Not Available [facility] 2 04:47:11 Irritabl e bowel syndrome 52276330 Active 2013 Not Available [facility] 2 04:47:11 Disease of liver 630764314 Completed 201308/02/2017 Cecelia martinez, [facility] 7 14:57:00 Single major depressi ve episode Completed 201308/02/2017 LIN Pavon, [facility] 7 14:39:15 Tobacco user [id number] Completed 201311/29/2017 Removal Reason: quit Aubrey Garrettivan-LIN Faustin, [facility] 8 10:43:17 Contact dermatit is 77647778 Completed 201308/02/2017 LIN Pavon, [facility] 7 14:39:21 Ex-smoke r 9483670 Active 2017 Not Available [facility] 2 04:47:11 Type 2 diabetes mellitus controll ed by diet 14030592011 9101 Completed 201812/19/2019 Jumana Villalobos PA-C [address] [facility] [address], [place], [address] , [facility] 0 14:20:57 Chronic kidney disease stage 1 676521149 Active 2018 Not Available [facility] 2 04:47:11 Hyperten sive renal disease 08731854 Active 2019 Not Available [facility] 2 04:47:11 Renal disorder due to type 2 diabetes mellitus 934739507 Active 2019 Not Available [facility] 2 04:47:11 Exposure to SARS-CoV -2 Completed 202003/17/2021 Removal Reason: Problem marked historic al by user [email or web address] 5 from the COVID-19 watch flag Susannah martinez [facility] 1 15:10:38 COVID-19 990869886 Completed 202003/17/2021 Removal Reason: Problem marked historic al by user [email or web address] 5 from the COVID-19 watch flag Susannah martinez [facility] 1 15:10:38 Generali zed anxiety disorder 16769321 Active 2022 Jumana Villalobos PA-C [address] [facility] [address] [facility], [place], [address] , [facility] 3 10:55:49 Lumbar spondylo sis 213033288 Active 2022 Jumana Villalobos PA-C [address] [address], [place], [address] , [facility] 3 11:11:58 Body mass index 30+ - obesity 181112264 Active 2023 Jumana Villalobos PA-C [address] [address], [place], [address] , [facility] 4 11:20:33 Moderate major depressi on, single episode 81863923 Active 2023 Jumana Villalobos PA-C [address] [address], [place], [address] , [facility] 4 13:08:10 Dysuria 13437284 Active 2023 RAJESH Zarate [address] [facility] [address], [place], [address] , [facility] 4 13:42:37 Constipa tion 52795952 Active 2023 RAJESH Zarate [address] [facility] [address] [facility], [place], [address] , [facility] 4 13:44:10 Rectal polyp 93515817 Active 2024 2 2-3 mm rectal polyps Jumana Villalobos PA-C [address] [address], [place], [address] , [facility] 5 14:09:24 Requires antibiot ic coverage for dental procedur e Active 2024 Jumana Villalobos PA-C [address] [address], [place], [address] , [facility] 5 15:06:44 Insomnia disorder related to another mental disorder 68492065 Active 2024 Jumana Villalobos PA-C [address] [facility] [address], [place], [address] , [facility] 5 11:02:49 Pain in right arm 646039390 [facility] 5 16:34:11 Mixed hyperlip idemia 092093039 Active 2024 Jumana Villalobos PA-C [address] [facility] [address], [place], [address] , [facility] 5 10:33:20 Problem Notes None recorded. Procedures Surgical History Date Name Laterality Status Provider Name and Address Organization Details Recorded Time 10/08/19 25 Colonoscopy completed Susannah Rosales [facility] 10/08/2024 09:51:55 09/10/19 25 Diabetic Foot Exam (Monofilament) completed Jumana Villalobos PA-C [address] [facility] [address], [place], [address], [facility] 09/10/2024 16:09:12 06/07/20 23 diabetic retinopathy screening completed Susnanah Rosales [facility] 06/27/2023 10:24:05 12/25/19 23 Diabetic Foot Exam (Monofilament) completed Parker Potter [facility] 12/24/2022 10:52:24 10/30/19 23 Advanced Care Planning completed Elisabeth Escalona MA [facility] 10/29/2022 10:02:31 12/31/19 21 Most Recent Mammogram completed Carol Hendrickson [facility] 12/31/2020 10:11:50 09/05/19 21 Six-Item Cognitive Test completed Elisabeth Escalona MA [facility] 09/05/2020 10:13:12 07/22/20 20 Diabetic Foot Exam (Monofilament) completed Lela Yu MA [facility] 07/22/2020 10:08:16 03/18/20 20 Diabetic Foot Exam (Monofilament) completed Donna Cardenas [facility] 03/18/2020 09:30:37 10/25/19 20 Mammogram both breasts completed Marya Roper [facility] 10/26/2019 14:23:04 07/05/20 19 injection of joint of foot completed Susannah Phan [facility] 07/09/2019 10:21:02 08/15/19 18 Biopsy skin lesion completed Aubrey whitaker MA [facility] 11/29/2017 10:52:49 11/05/19 16 Joint Replacement completed Elisabeth Escalona MA [facility] 06/11/2016 11:07:17 05/16/20 15 Date of Last Colonoscopy completed Shikha Hamm MA [facility] 08/03/2018 11:18:54 05/16/20 15 Colonoscopy completed Shikha Hamm MA [facility] 01/26/2017 12:52:21 12/20/19 15 Date of Last Pap Smear completed Elisabeth Escalona MA [facility] 01/01/2015 14:35:25 01/28/20 07 Most Recent Bone Density completed Shikha Hamm MA [facility] 08/03/2018 11:18:29 01/13/19 86 Hysterectomy completed Elisabeth Escalona MA [facility] 01/01/2015 14:35:53 01/13/19 86 Hysterectomy completed Elisabeth Escalona MA [facility] 09/05/2020 09:59:09 09/15/18 83 Caesarean Section completed Elisabeth Escalona MA [facility] 01/01/2015 14:35:53 09/15/18 83 Caesarean Section completed Elisabeth Escalona MA [facility] 09/05/2020 09:59:09 09/15/18 79 Caesarean Section completed Elisabeth Escalona MA [facility] 01/01/2015 14:35:53 Imaging Results None recorded. Procedure Notes None recorded. Medical Equipment None Reported. Allergies Allergen ID Allergen Name Allergen Category Reaction Reaction Severity Criticality Documentation Date Start Date Code Code System Note Provider Name and Address Organization Details Recorded Time 28164 Augmentin medicatio n diarrhea vomiting Not available Not available Not available 11/30/20172017 23508 2 RxNorm but can anton ate amox ac denta lwork Jonas Villalobos PA-C [address] [facility] [address], [facility] [place], [address], [facility] 5 14:29:59 63000 lisinopri l medicatio n cough Not available Not available 03/14/2018 53662 RxNorm Po Esha martinez [facility] 8 13:49:55 693 codeine medicatio n irregular heart rate moderate Not available 02/26/2014 2670 RxNorm LIN Pavon [facility] 5 14:34:57 694 doxycycli ne monohydra te medicatio n vomiting moderate Not available 02/26/2014 40264 2 RxNorm LIN Pavon [facility] 5 14:34:57 695 latex environme nt,medica tion hives moderate Not available 02/26/2014 26123 91 RxNorm LIN Pavon [facility] 5 14:34:57 696 Shellfish (substanc e) food,medi cation hives severe Not available 02/26/2014 32389 9006 SNOMED LIN Pavon [facility] 5 14:34:57 Medications Name Sig Start Date [...] 12/09 completed RECORDED 01/16/20 11 11:29AM BY VIJAY FAUST MD, MEDICATI ON AUTO-LYNN CTIVATIO N; Not [...] 12/22 completed RECORDED 12/23/19 13 1:23PM BY ELISABETH ESCALONA, OFFICE VISIT; Not Available Not Available [...] RECORDED 04/13/20 10 7:52PM BY JUSTINE ALLEN, KRISHNA ON/ADDEN DUM; Not Available Not Available Not [...] RECORDED 04/13/20 10 7:52PM BY JUSTINE ALLEN, KRISHNA ON/ADDEN DUM; Not Available Not Available Not [...] 06/10 completed RECORDED 06/10/20 11 3:09PM BY KRISHNA PARSONS ON/ADDEN DUM;THIS ORDER DISCONTI NUED PER [facility] N. Not Available Not Available Not Available Fluticaso ne Propionat e (Inhal) 50 mcg/BLIST inhl powd DAILY 2011 active RECORDED 12/29/19 14 1:26PM BY ELISABETH ESCALONA, OFFICE VISIT; Not Available Not Available [...] 06/10 completed RECORDED 06/10/20 11 3:09PM BY KRISHNA PARSONS ON/ADDEN DUM; Not Available Not Available Not Available nystatin 100,000 unit/gram topical cream APPLY TO THE AFFECTED AREA(S) BY TOPICAL ROUTE 2 TIMES PER DAY 09/09 completed Not Available Not Available Not Available lansopraz ole 30 mg capsule,d elayed release QD 12/22 completed RECORDED 12/23/19 13 1:55PM BY CECELIA Massey MD, KRISHNA ON/ADDEN DUM; Not Available Not Available Not [...] 11 3:09PM BY DEWEY RODRIGEZ, ANNOTATI ON/DUC DUM; Not Available Not Available Not Available Meclizine Hcl Chewable QD 12/22 completed RECORDED 12/23/19 13 1:23PM BY ELISABETH ESCALONA, OFFICE VISIT; Not Available Not Available [...] eous route for 90 days. 09/18 completed [email or web address] got approved . Not Available Not Available [...] Available Not Available Not Available Fluad Quad (65yr up)(PF) 60 mcg (15 mcg x [...] 12/21 completed 08/22/24 not started awaiting with insuran e approval . Not Available Not Available Not Available Ozempic 0.25 mg or 0.5 mg (2 mg/3 mL) subcutane ous pen injector INJECT 0.5MG SUBCUTAN EOUSLY WEEKLY 05/03 completed Not Available Not Available Not Available Vitals Date Recorded Body height Body mass index (BMI) Body weight Heart rate Oxygen saturation Body temperature Systolic And Diastolic Provider Name and Address Organization Details Last Updated DateTime 5 160.02 cm 38.1 kg/m2 65914.0 8 g 79 /min 96 % 98.1 [degF] 115/78 mm[Hg] Aminta Thomas [facility] 5 10:35:44 Date Recorded Body height Body mass index (BMI) Body weight Heart rate Oxygen saturation Body temperature Systolic And Diastolic Provider Name and Address Organization Details Last Updated DateTime 5 160.02 cm 38.1 kg/m2 82963.3 6 g 75 /min 96 % 98.2 [degF] 121/77 mm[Hg] Aminta Thomas [facility] 5 14:23:18 Date Recorded Body height Provider Name an d Address Organization Details Last Updated DateTime 04/29/2025 160.02 cm Aminta Thomas [facility] 04/29/2025 14:50:58 Date Recorded Body height Body mass index (BMI) Body weight Oxygen saturation Heart rate Body temperature Systolic And Diastolic Provider Name and Address Organization Details Last Updated DateTime 5 160.02 cm 36.9 kg/m2 46294.9 1 g 98 % 70 /min 97.2 [degF] 121/74 mm[Hg] Elisabeth Escalona MA [facility] 5 15:50:24 Date Recorded Body height Body mass index (BMI) Body weight Heart rate Oxygen saturation Body temperature Systolic And Diastolic Provider Name and Address Organization Details Last Updated DateTime 5 160.02 cm 37.8 kg/m2 62581.3 3 g 70 /min 97 % 97.9 [degF] 122/64 mm[Hg] Aminta Thomas [facility] 5 10:26:53 Social History Question Answer Notes LastModified by Organizat ion Details LastModified Time Tobacco Smoking Status Former Smoker social smoker Aubrey Rigoberto-Dinh, MA null, [facility] 11/29/2017 10:52:27 Do You Have An Advance Directive? No [email or web address] Information not available 07/27/2022 Animal Exposure? Yes [email or web address] Informat ion not available 07/27/2022 Is Blood Transfusion Acceptable In An Emergency? Yes [email or web address] Information not available 01/01/2015 What Is Your Level Of Caffeine Consumption? Moderate 1 Cup Of Coffee Daily Information not available 11/29/2017 How Much Tobacco Do You Chew? None Information not available 11/29/2017 What Type Of Diet Are You Following? REGULAR [email or web address] Information not available 05/30/2014 Which Illicit Or Recreational Drugs Have You Used? None Information not available 11/29/2017 Education 2 Year College Information not available 07/27/2022 Have There Been Any Changes To Your Family Or Social Situation? No [email or web address] Information not available 07/27/2022 When Did You Quit Smoking? 16+yearssinc elastcigaret te [email or web address] Information not available 09/09/2021 Are There Any Guns Present In Your Home? No [email or web address] Information not available 07/27/2022 Legally Blind In One Or Both Eyes? No Information not available 07/27/2022 Live Alone Or With Others? With Others (Dave) And 1 Dog [email or web address] Information not available 06/08/2024 Do You Take Precautions To Prevent Distracted Driving? Yes [email or web address] Information not available 06/11/2016 How Often Do You Need To Have Someone Help You When You Read Instructions, Pamphlets, Or Other Written Material From Your Doctor Or Pharmacy? Never [email or web address] Information not available 01/26/2017 Have You Served In The ? No [email or web address] Information not available 06/11/2016 Have You Or Anyone In Your Household Had Any Of The Following Symptoms In The Last 14 Days: Sore Throat, Cough, Chills, Body Aches For Unknown Reasons, Shortness Of Breath For Unknown Reasons, Loss Of Smell, Loss Of Taste, Fever At Or Greater Than 100 Degrees Fahrenheit? No [email or web address] Information not available 09/05/2020 Are You Or Anyone In Your Household A Health Care Provider Or Emergency Responder? No Information not available 08/26/2020 To The Best Of Your Knowledge Have You Been In Close Proximity To Any Individual Who Tested Positive For COVID-19? No [email or web address] Information not available 09/05/2020 *AWV ONLY* Are You Presently Prescribed Opioid Medication By PCP Or Specialist? If YES -Provider Assess The Benefit For Other, Non-opioid Pain Therapies Instead, Even If The Patient Does Not Have OUD But Is Possibly At Risk. No [email or web address] Information not available 09/09/2021 Have You Recently Traveled To A COVID-19 High Risk Area Or Gathering In The Last 10 Days? No Information not available 08/26/2020 What Was The Date Of Your Most Recent Tobacco Screening? 06/20/2025 [email or web address] Information not available 06/20/2025 Total Number Of Stairs In Home 2 [email or web address] Information not available 07/27/2022 How Many Children Do You Have? 2 Clary And Curtis Information not available 11/29/2017 What Is Your Current Pack Years? 10packyears [email or web address] Information not available 07/27/2022 Do You Use Protection During Sex? No Information not available 11/29/2017 Difficulty Reading? No [email or web address] Information not available 07/27/2022 What Is Your Relationship Status? [email or web address] Information not available 07/27/2022 Do You Use Your Seat Belt Or Car Seat Routinely? Yes [email or web address] Information not available 09/09/2021 Seat Belts Used Routinely Yes Information not available 07/27/2022 Are You Sexually Active? No [email or web address] Information not available 09/09/2021 Smoke Alarm In Home Yes [email or web address] Information not available 07/27/2022 Do You Have Smoke And Carbon Monoxide Detectors In Your Home? No [email or web address] Information not available 09/09/2021 At What Age Did You Start Smoking Tobacco? 18 Quit At 26 Information not available 11/29/2017 Are You Passively Exposed To Smoke? No Information not available 11/29/2017 Do You Use Sunscreen Routinely? Yes [email or web address] Information not available 05/30/2014 How Many Years Have You Smoked Tobacco? 8 Information not available 11/29/2017 Do You Have Difficulty Walking Or Climbing Stairs? Yes [email or web address] Information not available 07/27/2022 Sex: Unknown Functional Status Question Answer Note LastModified by Organizat ion Details LastModified Time Do you use any illicit or recreational drugs? No [email or web address] Information not available 07/27/2022 What is your level of alcohol consumption? Occasional [email or web address] Information not available 05/30/2014 Do you or have you ever used smokeless tobacco? Never used smokeless tobacco [email or web address] Information not available 08/20/2019 Are you currently employed? Yes [email or web address] Information not available 05/30/2014 Difficulty driving at night? No Information no t available 07/27/2022 Are you able to walk independently without assistance or assistive devices? YESWOREST [email or web address] Information not available 07/27/2022 Are you able to care for yourself independently? Yes Information not available 05/30/2014 What is your occupation? Retired [email or web address] Information not available 09/09/2021 Do you have difficulty dressing, bathing, grooming, or toileting? No Information not available 07/27/2022 Do you or have you ever used e-cigarettes or vape? Never used electronic cigarettes [email or web address] Information not available 07/27/2022 What is your exercise level? [facility] [email or web address] Information not available 09/09/2021 Mental Status Question Answer Note LastModified by Organization D etails LastModified Time Do you have difficulty concentrating, remembering or making decisions? No [email or web address] Information no t available 07/27/2022 Family History Relationship Description Onset Age of this Age Resolved Age Notes LastModified by Organization Details LastModified Time Mother Osteoporosis [email or web address] Not laila ilable 09/05/2020 09:58:45 Mother Disorder of thyroid gland [email or web address] Not available 09/05 09:58:45 Mother Harmful pattern of use of alcohol [email or web address] Not available 09/05 09:58:45 Mother Depressive disorder [email or web address] Not available 09/05 09:58:45 Mother Hypertensive disorder [email or web address] Not available 09/05 09:58:45 Mother Chronic obstructive pulmonary disease 76 [email or web address] Not available 09/05 09:58:45 Mother Anxiety disorder [email or web address] Not available 09/05 09:58:45 Father Heart disease Not available 09/05 09:58:45 Father Chronic obstructive pulmonary disease 76 [email or web address] Not available 2021 09:10:17 Father Arthritis [email or web address] Not availa ble 09/05/2020 09:58:45 Father Blood coagulation disorder [email or web address] Not available 09/05 09:58:45 Father Hypertensive disorder [email or web address] Not available 09/05 09:58:45 Medical History Condition Response Other N Gout N Kidney Stones N Blood Diseases N Hyperthyroidism N Breast Cancer N Hypothyroidism N Lung Disease N COPD N Depression N Defects or Inherited Disease N Anesthesia Complications N Headaches/Migraines N Varicose Veins N Anxiety Disorder Y Obesity N Vision or Eye Problems N [...] N Bladder Problems N Mental Illness N Ovarian Cancer N Diabetes Y Blood Transfusions N Seizures/Epilepsy N Tuberculosis N AIDS/HIV N Congestive Heart Failure (CHF) N Eczema N Diverticulitis N Abuse/Domestic Violence N Asthma N Allergies Y Reflux/GERD Y [...] Recorded Time Tdap 8 completed Not Available [facility], [facility]–1983 06/29/2022 04:47:12 Influenza, split virus, trivalent, preservative 1 completed Not Available [facility] 06/29/2022 04:47:11 Influenza, split virus, trivalent, preservative 1 completed Not Available [facility] 06/29/2022 04:47:12 Influenza, split virus, trivalent, preservative 2 completed Not Available [facility] 06/29/2022 04:47:12 Influenza, split virus, trivalent, preservative 3 completed Not Available [facility], [facility] 06/29/2022 04:47:12 Influenza, split virus, quadrivalent, preservative 9 completed Not Available [facility], [facility] 06/29/2022 04:47:12 COVID-19, mRNA, LNP-S, PF, 100 mcg/0.5mL dose or 50 mcg/0.25mL dose 1 completed Not Available [facility], [facility] 06/29/2022 04:47:12 COVID-19, mRNA, LNP-S, PF, 100 mcg/0.5mL dose or 50 mcg/0.25mL dose 1 completed Not Available [facility], [facility] 06/29/2022 04:47:12 COVID-19, mRNA, LNP-S, PF, 100 mcg/0.5mL dose or 50 mcg/0.25mL dose 1 completed Not Available [facility], [facility] 06/29/2022 04:47:12 Influenza, split virus, trivalent, preservative 2 completed Not Available [facility], [facility] 06/29/2022 04:47:12 Influenza, split virus, trivalent, preservative 3 completed Not Available [facility] 06/29/2022 04:47:11 Influenza, split virus, quadrivalent, preservative 6 completed Not Available [facility] 06/29/2022 04:47:12 Influenza, MDCK, quadrivalent, PF 8 completed Not Available [facility] 06/29/2022 04:47:12 Influenza, split virus, trivalent, PF 0 completed Not Available [facility], [facility] 06/29/2022 04:47:12 Influenza, split virus, trivalent, preservative 4 completed Not Available [facility] 06/29/2022 04:47:12 Influenza, high-dose, quadrivalent, PF 1 completed Not Available [facility] 06/29/2022 04:47:12 Influenza, split virus, quadrivalent, PF 7 completed Not Available [facility], [facility] 06/29/2022 04:47:12 Influenza, high-dose, quadrivalent, PF 2 completed Not Available [facility], [facility] 06/29/2022 04:47:12 COVID-19, mRNA, LNP-S, bivalent, PF, 50 mcg/0.5 mL or 25mcg/0.25 mL dose 2 completed Not Available [facility], [facility] 06/29/2022 04:47:11 Influenza, split virus, quadrivalent, PF 5 completed LIN Botello [facility] 07/27/2022 10:45:49 pneumococcal polysaccharide PPV23 1 completed LIN Botello, [facility] 07/27/2022 10:45:49 Td (adult), 2 Lf tetanus toxoid, preservative free, adsorbed 8 completed LIN Botello [facility] 07/27/2022 10:45:49 Influenza, adjuvanted, trivalent, PF 4 completed LIN Jj [facility] 06/08/2024 10:59:15 Pneumococcal conjugate PCV20, polysaccharide [id number] conjugate, adjuvant, PF 4 completed LIN Botello [facility] 07/25/2024 13:27:35 Influenza, adjuvanted, trivalent, PF 5 completed Not Available [facility], [facility] 07/16/2025 10:10:52 Influenza, high-dose, quadrivalent, PF 3 completed Jumana Villalobos PA-C [address] [address], [place], [address], [facility] 05/18/2023 11:07:50 Past Encounters Encounter ID Performer Location Encounter Start Date Encounter Closed Date Diagnosis/Indication Diagnosis SNOMED-CT Code Diagnosis ICD10 Code Diagnosis IMO Codes Diagnosis Note [id number] [facility] [address] [facility] [place] [address] 05/05/2007 00:00:00 [id number] auto[facility]Comm erce [address] [facility] [place] [address] 01/30/2008 00:00:00 [id number] auto[facility]Comm erce [address] [facility] [place] [address] 02/23/2008 00:00:00 [id number] autoEComm erce [address] [facility] [place] [address] 04/22/2008 00:00:00 [id number] auto[facility]Comm erce [address] [facility] [place] [address] 07/31/2008 00:00:00 [id number] auto[facility]Comm erce [address] [facility] [place] [address] 09/18/2008 00:00:00 [id number] autoEComm erce [address] [facility] [place] [address] 01/13/2009 00:00:00 [id number] autoEComm erce [address] [facility] [place] [address] 02/27/2009 00:00:00 [id number] auto[facility]Comm erce [address] [facility] [place] [address] 06/26/2009 00:00:00 [id number] autoEComm erce [address] [facility] [place] [address] 10/23/2009 00:00:00 [id number] [address] [address] [place] [address] 01/02/2010 00:00:00 [id number] auto[facility]Comm erce [address] [place] [address] 03/16/2010 00:00:00 [id number] autoEComm erce [address] [facility] [address] [place] [address] 04/06/2010 00:00:00 [id number] autoEComm erce [address] [place] [address] 04/22/2010 00:00:00 [id number] autoEComm erce [address] [facility] [address] [place] [address] 09/25/2010 00:00:00 [id number] autoEComm erce [address] [facility] [place] [address] 12/01/2010 00:00:00 [id number] autoEComm erce [address] [facility] [place] [address] 01/27/2011 00:00:00 [id number] autoEComm erce [address] [facility] [place] [address] 05/28/2011 00:00:00 [id number] autoEComm erce [address] [facility] [place] [address] 11/11/2011 00:00:00 [id number] autoEComm erce [address] [facility] [place] [address] 02/09/2012 00:00:00 [id number] autoEComm erce [address] [facility] [place] [address] 06/05/2012 00:00:00 [id number] autoEComm erce [address] [facility] [place] [address] 08/14/2012 00:00:00 [id number] autoEComm erce [address] [facility] [place] [address] 12/22/2012 00:00:00 [id number] autoEComm erce [address] [facility] [place] [address] 06/08/2013 00:00:00 [id number] autoEComm erce [address] [facility] [place] [address] 12/28/2013 00:00:00 [id number] autoEComm erce [address] [facility] [place] [address] 2014 00:00:00 [id number] Cecelia vanessa MD Main Office [address] [facility] [address] [place] [address] 05/30/2014 12:52:27 05/30/2014 13:56:36 Essential hypertension 00577283 BP well controlled , continue meds Osteoarthr itis of knee 179680232 on celebrex adn getting cortisone, will d/w ortho any role ofr other types of injections Anxiety state 116536886 mo od, anxiety and depression well controlled , continue paxil [id number] Cecelia vanessa MD Main Office [address] [facility] [address] [place] [address] 01/01/2015 14:19:04 01/01/2015 15:21:31 Adult health examination 105944016 all screening is utd. will work on exercise and weight loss Depressive disorder 66161180 mood low but pt wants to keep meds the same, things she is pulling out of it, will call if wants to change doses Body mass index 30+ - obesity 762420271 Chronic no nalcoholic liver disease 51648933 check liver tests Osteoarthr itis of knee 404871201 carmen g knee replacemen t, encouraged her to set surgery date if she is decided to get process going, this is contributi ng to her depression Fatigue 08888153 Vertigo 445028814 pt will set up ENT eval for eval and hearing eval [id number] Cecelia vanessa MD Main Office [address] [facility] [address] [place] [address] 05/07/2015 13:55:38 05/07/2015 14:39:39 Pre-surgery evaluation 445152301 pt is cleared for surgery, no active problems, will continue celebrex, labs and EKG done by orthopedic s Single axel or depressive episode, in full remission 692905768 on paxil and it is helping mood is steady Edema 759124659 on hctz, doing well [id number] Cecelia vanessa MD Main Office [address] [facility] [address] [place] [address] 05/19/2015 08:43:55 05/28/2015 11:01:05 [id number] Cecelia vanessa MD Main Office [address] [facility] [address] [place] [address] 06/04/2015 10:19:14 06/04/2015 11:22:02 Needs influenza immunization 208151027 Z23 Chronic no nalcoholic liver disease 40242031 K76.9 check liver tests, dx on CT in hospital work on weight loss Essential hypertension 58078215 I10 BP well controlled , continue meds History of total knee arthroplasty 8557489557 105 Z96.651 doing well, good movement and healing, is on coumadina nd narcotics still Fatigue 06948073 R53.83 needs sleep study to look for sleep panea, ? apnea in hospital, [id number] Jumana Villalobos PA-C Main Office [address] [address] [place] [address] 10/27/2015 13:52:55 10/27/2015 14:42:39 Pre-surgery evaluation 554508247 Z01.818 Based on history , PE , labs and EKG , patient has an average risk for this procedure and no contraindi cations. PT. missed her BP meds this am. Advised to take daily including on the day of the surgery. Arthropath y of knee joint 472333403 M25.862 [id number] Cecelia vanessa MD Main Office [address] [facility] [address] [place] [address] 11/14/2015 13:59:59 11/14/2015 16:59:23 [id number] Jumana Villalobos PA-C Main Office [address] [address] [place] [address] 12/02/2015 12:57:20 12/02/2015 13:41:37 Pneumonia 048335766 J18.9 Multifocal hospital acquired pneumonia f/u. Repeat chest XRay. Pt. is feeling well. Completed all therapy. Will repeat chest XRAy today. [id number] Cecelia vanessa MD Main Office [address] [facility] [address] [place] [address] 06/11/2016 10:49:19 06/11/2016 11:56:55 Adult health examination 022133922 Z00.00 all screening is utd. will work on exercise and weight loss Single axel or depressive episode, in full remission 191477036 F32.5 on paxil and it is helping mood is steady Chronic no nalcoholic liver disease 98245175 K76.9 check liver tests, dx on CT in hospital work on weight loss Body mass index 40+ - severely obese 870741811 Z68.41 working on weight loss Essential hypertension 66058107 I10 BP well controlled , continue meds [id number] Cecelia vanessa MD Main Office [address] [address] [place] [address] 01/26/2017 12:41:10 01/26/2017 14:14:07 Steatotic liver disease 719755885 K76.0 pt knows to lose weight and exercise, will also check fasting cholestero l Hypercholesterolemia 136 21294 E78.2 Fatigue 30729932 R53.83 Ultrasound scan abnormal 457410456 R93.8 renal cyst, increase in size form 2009, will refer to urology and send them imaging so they can review and decide if any further followup is needed [id number] Cecelia vanessa MD Main Office [address] [place] [address] 08/02/2017 14:21:18 08/02/2017 15:15:41 Adult health examination 724670643 Z00.00 all screening is utd. will work on exercise and weight loss Chronic no nalcoholic liver disease 84253482 K76.9 check liver tests, dx on CT in hospital work on weight loss Essential hypertension 06515058 I10 BP well controlled , continue meds Hyperglycemia 62172153 R 73.9 chec AiC Body mass index 40+ - severely obese 611764542 E66.01 Z68.41 work on weight loss and exercise [id number] RAJESH Zarate Main Office [address] [address] [place] [address] 11/29/2017 10:29:57 11/29/2017 11:16:27 Essential hypertension 08638771 I10 BP 140-86 manually, recommend low sodium diet, hydration, continue HCTZ. Acute sinusitis 35975108 J01.90 start augmentin as directed, eat 20 mins prior and eat yogurt/ take probiotic. continue flonase, add yaritza allergy pill daily. hydration, rest, nasal sinus rinses. Allergic rhinitis 326535 04 J30.9 [id number] Jumana Villalobos PA-C Main Office [address] [address] [place] [address] 12/27/2017 11:13:21 12/27/2017 11:38:38 Essential hypertension 28088192 I10 Continue HCTZ. Add small dose of Lisinopril 5 mg. POssible side effects reviewed. F/u as scheduled in January. [id number] Rupesh Vallecillo MD Main Office [address] [address] [place] [address] 03/14/2018 13:33:38 03/14/2018 14:26:54 Cough 42197731 R05 Possibly related to allergies and PND. Will try a nasal spray fr a week and continue anti-hista mine. If no help she will try a week of a PPI and if her symptoms persist she will call to let us know. [id number] Cecelia vanessa MD Main Office [address] [place] [address] 08/03/2018 10:51:17 08/03/2018 11:51:37 Adult health examination 712251821 Z00.00 all screening is utd. will work on exercise and weight loss Screening for malignant neoplasm of breast 431670283 Z12.39 Requires a tetanus booster 412736221 Z23 Essential hypertension 12239258 I10 BP is elevated will continue hctz and add norvasc Anxiety state 530390277 F41.1 mood, anxiety and depression well controlled , continue paxil Body mass index 40+ - severely obese 192009600 E66.01 Z68.41 work on weight loss and exercise [id number] Cecelia vanessa MD Main Office [address] [address] 11/01/2018 14:57:07 11/01/2018 15:34:46 Essential hypertension 72468610 I10 BP is much better. continue norvasc and hctz, if any dizziness or low BP she should let me know Cough 04300980 R05 pnd refill med Osteoarthr itis of knee 819562509 M17.9 celebrex 200mg a day with food Low back pain 344702771 M54.5 stretches, exercises and celebrex Insomnia 703247751 G47.0 0 use as needed [id number] Cecelia vanessa MD Main Office [address] [address] 03/09/2019 12:35:18 03/09/2019 13:15:13 Essential hypertension 33752564 I10 BP is much better. continue norvasc and hctz and check labs Gastroesop hageal reflux disease 799978033 K21.9 recently with symptoms, nexium 40mg resolved them Chronic no nalcoholic liver disease 12014615 K76.9 check lfts work on weight loss Obesity 863798381 E66.9 Anxiety state 707282068 F41.1 mood, anxiety and depression well controlled , continue paxil Hypercholesterolemia 136 24282 E78.2 check fasting Single axel or depressive episode, in full remission 907280916 F32.5 on paxil and it is helping mood is steady [id number] Vijay Faust MD Main Office [address] [address] 06/19/2019 12:40:13 06/19/2019 13:36:11 Type 2 diabetes mellitus controlled by diet 4338355013 48780 E11.9 Total time spent teaching and coordinati ng diabetic care 45 minutes. Basic physiology of Type II Diabetes Mellitus was reviewed. Glucose records were reviewed. Pt. was instructed on use of new glucose meter and advised to monitor glucose 3 times per day ; before each main meal. Goal for fasting glucose is 80-130 and 1-2 hrs after the meal under 180. Pt. was instructed on 1500 viktor ADA diet and given 7 day sample menus to use at home. Pt. was advised to start exercise activity by walking 30 min at least 3 times weekly and increase weekly or by weekly to 4-6 day per week. If unable to walk , pt. should use other exercise modalities /equipment that is stationary at home or in the gym for that amount of time weekly or water exercises. F/u with log in 6-7 weeks. Body mass index 30+ - obesity 272002009 E66.01 Z68.41 [id number] Vijay Faust MD Main Office [address] [place] [address] 08/01/2019 12:52:23 08/01/2019 13:38:10 Renal disorder due to type 2 diabetes mellitus 612263758 E11.29 Start Losartan 50 mg daily. Test BP . PT. has ranjith with PCP in August. Continue other antihypert ensives. Diabetes is stable on diet alone. PT was encouraged to continue loosing weight. F/u with log in 3 m. Chronic ki dney disease stage 1 203743063 N18.1 [id number] Cecelia vanessa MD Main Office [address] [place] [address] 08/20/2019 12:42:44 08/20/2019 13:53:18 Adult health examination 181005239 Z00.00 all screening is utd. will work on exercise and weight loss, doing well with DM control Essential hypertension 97337034 I10 BP is much better. continue meds and check labs, ARB added by Jumana Irritable bowel syndrome 59800902 K58.9 Type 2 alo betes mellitus controlled by diet 0986744301 81042 E11.9 A1C 6.3, will see Jumana in 11/01 and can get labs then Single axel or depressive episode, in full remission 563523510 F32.5 on paxil and it is helping mood is steady Body mass index 40+ - severely obese 715869770 E66.01 Z68.41 work on weight loss and exercise [id number] Vijay Faust MD Main Office [address] [place] [address] 12/19/2019 10:44:52 12/19/2019 15:08:42 Renal disorder due to type 2 diabetes mellitus 419723357 E11.29 continue ARB. Repeat microalbum in . Continue diabetic diet alone and weight loss attempts. If A1c is higher than 6.5%, we will consider adding metformin. F/u 3 m. Chronic ki dney disease stage 1 240793463 N18.1 Chronic no nalcoholic liver disease 83348982 K76.9 Pt. was tested for Hep C and negative. Will need Hep B for immunity test. Hyperlipidemia 57117559 E78.5 History of hepatitis B conferring immunity 1269667069 9103 Z86.19 [id number] Vijay Faust MD Main Office [address] [facility] [address] [place] [address] 03/18/2020 09:16:30 03/18/2020 10:40:03 Renal disorder due to type 2 diabetes mellitus 538744625 E11.29 stable diet controlled diabetes. Continue glucose testing at . Increase exercise activity to daily 30 minute walking and lower total calories. F/u 4 m. Repeat labs prior to next visit. Chronic ki dney disease stage 1 510293785 N18.1 increase losartan to 100 mg due to proteinuri a Body mass index 40+ - severely obese 732244784 Z68.41 Morbid obesity 846488520 E66.01 [id number] Cecelia vanessa MD Telehealt [address] [facility] [address] [place] [address] 04/28/2020 08:25:05 04/28/2020 12:24:05 Essential hypertension 99237882 I10 jumana increased to 100mg. pt by mistake was taking 150mg, she will lower to 100mg a day, get set up with [employer] remote monitoring Anxiety state 568232906 F41.1 mood, anxiety and depression well controlled , continue paxil. just retired Type 2 alo betes mellitus controlled by diet 1483985383 92081 E11.9 A1C 6.3, will see Jumana in 07/2020 Chronic ki dney disease stage 1 988123208 N18.1 [id number] Vijay Faust MD Main Office [address] [facility] [address] [facility] [place] [address] 07/22/2020 09:56:21 07/22/2020 10:49:14 Renal disorder due to type 2 diabetes mellitus 960490416 E11.22 stable diet controlled diabetes. Continue glucose testing at . Increase exercise activity to daily 30 minute walking and lower total calories. F/u 3-4 m. Chronic ki dney disease stage 1 898017022 N18.1 Continue losartan 100 mg daily. Morbid obesity 794501176 E66.01 Body mass index 40+ - severely obese 743097090 Z68.41 [id number] Meena Greco MD Telehealt h [address] [facility] [address] [place] [address] 08/26/2020 12:46:53 08/26/2020 14:08:45 COVID-19 328600170 U07.1 precation and isolation/ quarantine discussed per CDC guidelines hygeine discussed including hand washingSym ptomatic treatment discussed: saline nasal spray, otc flonase sensimist, tylnol for fever, honey (in limitation due to t2dm) for cough, humidified air.Will retest for covid as sample missing Exposure t o viral disease 1258800665 50023 Z03.818 [id number] Cecelia vanessa MD Main Office [address] [facility] [address] [place] [address] 09/05/2020 09:39:14 09/05/2020 10:45:59 Adult health examination 955199311 Z00.00 all screening is utd. will work on exercise and weight loss, doing well with DM control Screening for malignant neoplasm of breast 893255816 Z12.39 pt to arrange Hypertensi ve renal disease 90683933 I12.9 BP well controlled . Administra tion of pneumococcal vaccine 67622441 Z23 Chronic no nalcoholic liver disease 44615578 K76.9 check lfts work on weight loss Menopause present 764490 006 N95.1 overdue, pt will arrange Major depr ession in full remission 54397062 F32.5 mood decent on paxil Spinal sue nosis of lumbar region 30668701 M48.061 gets shots at [facility] Dr [place] Body mass index 40+ - severely obese 569731268 Z68.41 work on weight loss and exercise Type 2 alo betes mellitus controlled by diet 0712689497 61624 E11.9 A1C 6.3, will see Jumana in 07/2020 Chronic ki dney disease stage 1 987462403 N18.1 Morbid obesity 645957230 E66.01 [id number] Vijay Faust MD Main Office [address] [facility] [address] [place] [address] 11/18/2020 15:55:04 11/18/2020 16:29:25 Renal disorder due to type 2 diabetes mellitus 707533705 E11.22 stable diet controlled diabetes. Continue glucose testing at . Increase exercise activity to daily 30 minute walking and lower total calories. F/u 4 m. Chronic ki dney disease stage 1 011559153 N18.1 Continue losartan 100 mg daily. Hyperlipidemia 23249214 E78.5 [id number] Jumana Villalobos PA-C Main Office [address] [address] [place] [address] 03/25/2021 08:51:40 03/25/2021 09:42:48 Renal disorder due to type 2 diabetes mellitus 481808218 E11.22 stable diet controlled diabetes in the setting of morbid obesity. Continue glucose testing at . Due to limitation s in exercise activity , we will try to get GLP-1 approved, Ozempic. Repeat labs fasting. F/u in 3 m. Chronic ki dney disease stage 1 567591776 N18.1 Continue losartan 100 mg daily. Hypertensi ve renal disease 22946037 I12.9 continue losartan 100 mg daily. Test BP 2 times per week and let me know if over 135/85 at [id number] Cecelia vanessa MD [facility] [address] [address] [place] [address] 06/22/2021 08:56:22 06/22/2021 11:08:25 Renal disorder due to type 2 diabetes mellitus 673684290 E11.22 N18.1 yeast infection in pt with DM and obesity, keep good control of DM to heal Tinea corporis 79108290 B35.4 under both breasts and in groin, last A1C was good at 6.3, watch sugars and treat as below, keep dry with cotton sheets, cotton PJ's and dry fully after a shower, treat for 4 days after it looks resolved for complete resolution [id number] Meena Greco MD Main Office [address] [facility] [address] [place] [address] 07/28/2021 08:40:08 07/28/2021 09:34:06 Renal disorder due to type 2 diabetes mellitus 391001086 E11.22 N18.1 stable diet controlled diabetes in the setting of morbid obesity. Continue glucose testing at . Due to limitation s in exercise activity. Hypertensi ve renal disease 09956993 I12.9 stable on current meds. Chronic ki dney disease stage 1 831439272 N18.1 Continue losartan 100 mg daily. Disorder o f nervous system due to type 2 diabetes mellitus 881656479 E11.49 Localized arm neuralgia. Start gabapentin 100 mg at HS, increase in 3-5 days by 100 mg. F/u in August. [id number] Cecelia vanessa MD Main Office [address] [facility] [address] [place] [address] 09/09/2021 09:06:40 09/09/2021 09:55:50 Adult health examination 768860378 Z00.00 all screening is utd. will work on exercise and weight loss, doing well with DM control very poor sleep and low mood Hypertensi ve renal disease 96378355 I12.9 BP well controlled . Irritable bowel syndrome 73540922 K58.9 Chronic ki dney disease stage 1 172810619 N18.1 Morbid obesity 111441678 E66.01 working on eating habits needs more activity Major depr ession single episode, in partial remission 85035874 F32.4 mood is downa nd anxiety is up, pt to continue paxil, treat sleep more aggressive ly safe with self Insomnia 940840895 G47.0 0 encouraged her to use every night for 3 weeks to catch up on sleep, telehealth 3 week, may change paxil to zoloft then if better. Body mass index 40+ - severely obese 714432124 Z68.41 [id number] [facility] [address] [place] [address] 09/28/2021 08:49:24 09/30/2021 15:25:20 Major depression single episode, in partial remission 76906175 F32.4 will have pt stop paxil and start sertraline . Insomnia 248977851 G47.0 0 continue lorazpem for sleep has been really hepful Unintentio nal weight gain 8696587381 90399 R63.5 hoping change to sertraline will help [id number] Meena Greco MD Main Office [address] [facility] [address] [place] [address] 10/27/2021 09:02:00 10/27/2021 09:39:58 Renal disorder due to type 2 diabetes mellitus 749779556 E11.22 WE will begin Trulicity injections at 0.75 mg weekly. Possible side effects were discussed and injection was demonstrat ed with demo device. I will see Kanchan in f/u in 6 weeks and consider increasing to 1.5 mg dose at that time if smaller dose was tolerated well. She will continue her low calorie diet and exercise activity. Chronic ki dney disease stage 1 660446883 N18.1 Continue losartan 100 mg daily. Body mass index 40+ - severely obese 326975048 Z68.41 Morbid obesity 693072146 E66.01 [id number] Cecelia vanessa MD [facility] [address] [facility] [address] [place] [address] 11/30/2021 08:33:13 12/01/2021 10:39:48 Single major depressive episode, in full remission 189690749 F32.5 is on sertraline 100mg, she came off paxil and feels her mood is well treated. continue Insomnia 757920230 G47.0 0 continue lorazpem for sleep has been really helpful. some recent stresses Hypertensi ve renal disease 77708041 I12.9 BP well controlled . checks at home. Disenrolle d due to $10/month fee, will check at home for now nad let me know if wants to restart Chronic ki dney disease stage 1 119129849 N18.1 [id number] Jumana Villalobos PA-C Main Office [address] [facility] [address] [place] [address] 05/26/2022 09:18:40 05/26/2022 10:33:43 Renal disorder due to type 2 diabetes mellitus 076757323 E11.22 Excellent diabetic control on trulicity with 15 lb weight loss so far on smallest dose. Continue Trulicity injections to .75mg weekly. Revisit in 2 m . If weight plateaus out, we will try higher dose. She will continue her low calorie diet and exercise activity. Hypertensi ve renal disease 58956013 I12.9 Low bp at this point on 3 meds. WE will hold HCTZ and test bp for 2 weeks to assure it does not go back up over 135/85. Continue amlodipine 5 mg and losartan 100 mg. Chronic ki dney disease stage 1 003555117 N18.1 Continue losartan 100 mg daily. [id number] Jumana Villalobos PA-C Main Office [address] [facility] [address] [place] [address] 07/27/2022 10:36:22 07/27/2022 11:08:43 Body mass index 40+ - severely obese 261670132 Z68.41 Increase Trulicity to 3 mg weekly and refer pt to [facility] weight management program. Pt. was encouraged to exercise at least 3-4 times weekly by walking. We will repeat all labs including thyroid. F/u 3 m. Hyperlipidemia 52652900 E78.5 repeat lipids Hypertensi ve renal disease 34792615 I12.9 HCTZ was discontinu ed due to low bp. PT. has no lightheade dness and bp is stable. Renal diso rder due to type 2 diabetes mellitus 714765827 E11.22 repeat microalbum in prior to next visit. Chronic ki dney disease stage 1 239177464 N18.1 Continue losartan 100 mg daily. Morbid obesity 890146178 E66.01 [id number] Meena Greco MD Main Office [address] [facility] [address] [place] [address] 09/21/2022 11:21:54 09/21/2022 11:56:02 Renal disorder due to type 2 diabetes mellitus 808831473 E11.22 GI upset with 3 mg trulicity. We will lower to 1.5 mg weekly and monitor for GI symptoms. [facility]. Chronic ki dney disease stage 1 485236977 N18.1 Continue losartan 100 mg daily. Nausea and vomiting 1693 2000 R11.2 secondary to GLP-1 . lower dose and reevaluate . Hypertensi ve renal disease 32031336 I12.9 stable on current meds. [id number] Cecelia vanessa MD Main Office [address] [facility] [address] [place] [address] 10/29/2022 10:00:34 10/29/2022 10:41:52 Adult health examination 523883744 Z00.00 colonoscop y is utd, mammogram is due Advance di rective discussed with patient 445260661 Z71.89 discussed with patient Hyperlipidemia 68142561 E78.5 labs utd excellent control Hypertensi ve renal disease 33890035 I12.9 BP well controlled Irritable bowel syndrome 27261914 K58.9 Screening for malignant neoplasm of breast 728421744 Z12.39 pt to arrange Renal diso rder due to type 2 diabetes mellitus 911250669 E11.22 excellent control last A1C 5.5 Chronic low back pain 27 8641025 M54.50 MRI in past with bilateral foraminal stenosis, pain is bilateral, recc pt do walking and stretching , weight loss, increase gabapentin to tid, if not improved in 3 months then seek another injection as they helped every time except the last time. Chronic ki dney disease stage 1 986279809 N18.1 [id number] Meena Greco MD Main Office [address] [facility] [address] [place] [address] 12/24/2022 09:55:17 12/24/2022 11:20:25 Renal disorder due to type 2 diabetes mellitus 210731537 E11.22 excellent diabetic control, but weight is not benefiting from TRulicity. Higher dose of 3 mg was not tolerated well by pt. I advise pt. to see if insurance will cover Wegovy or Ozempic. She will get back to me on that. Chronic ki dney disease stage 1 659345221 N18.1 Continue losartan 100 mg daily. Hypertensi ve renal disease 89339807 I12.9 stable on current meds. Muscle pain 58218277 M79 .10 check CK , ESR and Lyme titer. Hold statins for 4 weeks . If muscle aches resolved , we will adjust dose or change medication . [id number] Meena Greco MD [facility] [address] [facility] [address] [place] [address] 01/24/2023 09:55:17 01/24/2023 13:22:06 Generalized anxiety disorder 31971003 F41.1 SCAR score is above norm with secondary insomnia requiring another medication for sleep at least 4 times per week. WE will increase sertraline to 150 mg daily and lower lorazepam to 0.5 mg at HS prn with plan to discontinu e if possible in the future. F/u 4 weeks. [id number] GARRY PACK MD [facility] [address] [facility] [address] [place] [address] 03/07/2023 09:41:27 03/07/2023 10:53:13 Anxiety state 339872306 F41.1 increase sertraline to 150 mg daily. F/u 3 m. Renal diso rder due to type 2 diabetes mellitus 213657469 E11.22 excellent diabetic control,. continue trulicity 1.5 mg weekly. Continue trying to lose more weight via exercise and diet. Chronic ki dney disease stage 1 352235493 N18.1 Continue losartan 100 mg daily. [id number] Meena Greco MD Main Office [address] [facility] [address] [place] [address] 05/18/2023 10:04:01 05/18/2023 11:08:36 Renal disorder due to type 2 diabetes mellitus 850818252 E11.22 Last A1C was 5.4, recommend to recheck today. Pt has gained 8lbs since last ov, rec to trying to lose more weight via exercise and diet, but limited due to worsening of her lumbar spondylosi s.continue trulicity 1.5 mg weekly injections . F/u for DM in 4 m. Influenza vaccine needed 8993104370 106 Z23 Chronic ki dney disease stage 1 232672998 N18.1 Continue losartan 100 mg daily. Hypertensi ve renal disease 94435085 I12.9 stable on current meds. continue medicaton and low sodium diet. Lumbar spondylosis 07201 0009 M47.896 progressin g symptoms for the past 6 month. Short term relief from steroid injections and more frequent need for steroid injections for the past year. Pt. is seeing [facility] physicians for her condition. F/u is coming soon and I encouraged Kanchan to discuss reordering lumbar MRI for her to reassess. Last MRI was in 2020. Pt. is interested in seeing neurosurge ry and that consult will require new MRI. She will discuss. Also, advised to discuss current dose of gabapentin and see if increase in dose is indicated. PT. is on 300 mg BID. Generalize d anxiety disorder 98694353 F41.1 SCAR score is 2 , pt. is stable on current medication , sertraline 100 mg daily. [id number] Meena Greco MD Main Office [address] [place] [address] 06/01/2023 13:31:41 06/01/2023 14:19:16 Ulnar neuropathy of right arm 2999943444 07813 G56.21 Chronic intermitte nt right upper arm shooting pain radiating down the inner arm to the palm associated with paresthesi a lasting a few minutes then spontaneou sly self-resol ves with decreased arm movement. Pt is advised to increase dose of Gabapentin 300mg BID to TID, take 1 tablet in the AM and then 2 tablets in the PM, if sx not improved with consider neurology referral for nerve conduction studies. [id number] GARRY PACK MD Main Office [address] [place] [address] 11/23/2023 10:59:09 11/23/2023 11:48:52 Renal disorder due to type 2 diabetes mellitus 069510150 E11.22 Very stable diabetic control. PT. is now on Ozempic and is doing well. REcommend to maintain high fiber diet and increase fluids. Repeat labs and urine fasting. Major depr ession single episode, in partial remission 81170579 F32.4 Pt. is grieving loss of her son, unable to sleep, crying all the time. recommend increasing sertraline to 100 mg daily and adding clonopin 0.5 mg at bedtime to replace lorazepam. Chronic ki dney disease stage 1 102980677 N18.1 Continue losartan 100 mg daily. Hyperlipidemia 24340276 E78.5 repeat lipids [id number] Meena Greco MD [facility] [address] [place] [address] 12/19/2023 09:37:31 12/19/2023 10:29:24 Major depression single episode, in partial remission 71249996 F32.4 Pt. is grieving loss of her son. sertraline improved symptoms so far, although PHQ is still in moderate range . Pt. sleeps better with smallest dose of clonazepam 0.25 mg.Recom. to increase sertraline to 150 mg daily and continue 0.25 mg of clonazepam at HS. Pt. will continue trying to get ranjith with counselor. F/u 6 weeks. [id number] Brodie Ruiz MD [facility] [address] [address] [place] [address] 03/26/2024 14:17:41 03/26/2024 15:24:46 Major depression single episode, in partial remission 03227613 F32.4 Pt. is grieving loss of her son. sertraline improved symptoms so far,and PHQ is in mild range. Pt. sleeps better with smallest dose of clonazepam 0.25 mg. There is no sizable side effects with theses meds.WE will continue current meds . Pt. reduced gabapentin to 600 mg at HS. F/u 8 weeks for AWV. Lumbar spondylosis 67694 0009 M47.896 Continue gabapentin 600 mg at HS. Renal diso rder due to type 2 diabetes mellitus 088036952 E11.22 repeat A1c and bmp in 6-8 weeks. continue Ozempic 0.5 mg weekly. Chronic ki dney disease stage 1 337387164 N18.1 Continue losartan 100 mg daily. Hyperlipidemia 20312581 E78.5 Continue rosuvastat in 10 mg and low fat diet. repeat lipids prior to next visit in 6-8 weeks. [id number] Rupesh Vallecillo MD Main Office [address] [address] [place] [address] 04/07/2024 11:13:23 04/09/2024 08:04:21 COVID-19 534019695 U07.1 Discussed SE's, she will hold her statin and she will use OTC for congestion and sore throat. [id number] Brodie Ruiz MD Main Office [address] [address] [place] [address] 06/08/2024 10:53:26 06/08/2024 12:06:51 Adult health examination 024428305 Z00.00 recom mammograph y, COVID booster and Prevnar 20 vis pharmacy and colonoscop y referral was provided. Refer to fall risk PT. Screening for malignant neoplasm of breast 234267605 Z12.39 Renal diso rder due to type 2 diabetes mellitus 198395065 E11.22 repeat A1c , continue current management . F/u 3 m. Chronic ki dney disease stage 1 155997415 N18.1 Continue losartan 100 mg daily. Hypertensi ve renal disease 62815779 I12.9 stable on current meds. continue medicaton and low sodium diet. Generalize d anxiety disorder 37445412 F41.1 SCAR score is 10 . advise to increase sertraline to 200 mg daily, but pt declined for now. Referral for therpay provided. F/u 3 m. Hyperlipidemia 21352293 E78.5 Due to upper leg pain, decrease rosuvastat in to every other day and check labs for rhabdomyol ysis. Insomnia 251632230 G47.0 0 Pt. takes clonazepam a bed. Irritable bowel syndrome 69775154 K58.9 stable Body mass index 30+ - obesity 335936999 E66.01 Z68.39 Discussed reduction in portions , processed component, carbs. Pt. can not exercise much due to lUbar spondylosi s. At [facility] ed risk for falls 053211335 Z91.81 Fall risk assessment score is high at 8. recommend fall risk PT. Screening for malignant neoplasm of colon 974079893 Z12.11 Chronic no nalcoholic liver disease 25619471 K76.9 Pt. was tested for Hep C and negative. Will need Hep B for immunity test. Lost 4 lbs since the last visit. Gastroesop hageal reflux disease 378259541 K21.9 stable with PRN PPI> Lumbar spondylosis 83440 0009 M47.896 Continue gabapentin 600 mg at HS. F/u with pain management . Continue celebrex. Muscle pain 92843191 M79 .10 check CK , ESR and Lyme titer. Hold statins for 4 weeks . If muscle aches resolved , we will adjust dose or change medication . Administra tion of pneumococcal vaccine 11156785 Z23 Moderate m ajor depression, single episode 40303496 F32.1 complicate d by grieving. PHQ is 12 today, but pt. reports her symptoms vary. Declined increase in SSRI today . Referral for therapist was provided with the name of therapist. F/u 3 m. [id number] Rupesh Vallecillo MD [facility] [address] [facility] [address] [place] [address] 07/25/2024 12:46:53 07/25/2024 15:10:04 Dysuria 53550666 R30.0 SYMPTOMS:b urning with urination? nofrequenc y? yeshematur ia? nolower abdominal pain? yessymptom s similar to previous UTI? yes POSSIBLE CONTRAINDI CATIONS TO TELEPHONE TREATMENT: > 65 years of age? yesfevers? norecent UTI (within 1 month)? nonew low back pain? nonausea or vomiting? no ? nohistory of interstiti al cystitis? no PROVIDER ACTION: Reviewed nursing notes? yesRecomme nded action must drop off urine for culture Antibiotic treatment NA Renal diso rder due to type 2 diabetes mellitus 820878000 E11.22 patient have adverse effects to ozempic which include constipati on initially then soft stools then frequent watery stools, cycle starts up again on injection day every week. Will try changing to mounjaro instead to see if side effects are lessened. Bucks diet and advance as tolerated, hydration. Urinary tr act infectious disease 42098811 N39.0 Patient is not having typical UTIsx, may be having constipati on that is causing urinary frequency. Will check ua and culture.Pu sh fluids, wipe front to back, do not hold urine for extended periods of time, urinate before and after intercours e. will await lab results. If sx not better or if any worsening, fever, chills, N/V please call/ return. Constipation 34220666 K5 9.00 will check labs and Abd XR for constipati on. [id number] Rupesh Vallecillo MD Main Office [address] [facility] [address] [place] [address] 08/22/2024 10:05:24 08/22/2024 11:09:25 Diarrhea 92946887 R19.7 -had episodes of diarrhea 3 days ago>with associated vomiting>n o blood in stool-jaime es of any known contaminat ed food source-no fever, chills, abdominal cramps/blo ating-no recent dosage changes in medication s-no one else in household is sick with similar symptoms-s ymptoms have since resolved-i s currently on BRAT diet-has not had an episode of diarrhea in the past 2 days-repor ts to be feeling much better [id number] Rupesh Vallecillo MD Main Office [address] [place] [address] 09/10/2024 10:48:16 09/10/2024 11:53:53 Adult health examination 246999196 Z00.00 recom mammograph y, COVID booster and shingrix vaccine. Pt. is scheduled for colonoscop y next month. Body mass index 30+ - obesity 661263365 E66.01 Z68.38 Discussed reduction in portions , processed component, carbs. Adding exercise component should help to promote more weight loss. F/u 4 m. Renal diso rder due to type 2 diabetes mellitus 471555543 E11.22 Stable diabetic control wit A1c of 5.5%. Recom to continue current plan and return in 4 m. repeat labs prior to next visit fasting. Chronic ki dney disease stage 1 052096471 N18.1 Continue losartan 100 mg daily. Chronic no nalcoholic liver disease 12401263 K76.9 Pt. was tested for Hep C and negative. Will need Hep B for immunity test. Lost additional 3 lbs since the last visit. Gastroesop hageal reflux disease 614891302 K21.9 stable with PRN PPI> Moderate m ajor depression, single episode 54048953 F32.1 complicate d by grieving. PHQ is down to mild range on sertraline 150 mg plus prn clonazepam . pt. declines therapy. F/u 4 m. Generalize d anxiety disorder 83419507 F41.1 SCAR score is down to 8 on current treatment . Hyperlipidemia 03287996 E78.5 repeat lipids prior to next visit. Continue current treatment plan. Hypertensi ve renal disease 61520324 I12.9 stable on current meds. continue medicaton and low sodium diet. Constipation 15044902 K5 9.00 recommend to add Miralax 17 gm daily, continue fiber and fluids. Insomnia 451163161 G47.0 0 Pt. takes clonazepam a bed. Lumbar spondylosis 24271 0009 M47.896 Continue gabapentin 600 mg at HS. F/u with pain management . Continue celebrex. Irritable bowel syndrome 63472247 K58.9 stable Screening for malignant neoplasm of breast 639140749 Z12.39 Screening for malignant neoplasm of cervix 812029257 Z12.4 Screening for malignant neoplasm of colon 139433682 Z12.11 Varicella vaccination 68 301357 Z23 Leukocytosis 257302608 D 72.829 repeat CBC [id number] Rupesh Vallecillo MD Main Office [address] [facility] [address] [place] [address] 12/21/2024 08:57:26 12/21/2024 10:14:59 Renal disorder due to type 2 diabetes mellitus 050576597 E11.22 Great diabetic control with A1c of 5.2%. Recom to continue current plan and return in 3-4 m. Lab results were discussed with pt , all stable and up to date. Chronic ki dney disease stage 1 843855153 N18.1 Continue losartan 100 mg daily. Hyperlipidemia 35550954 E78.5 Lipid panel showed hyperlipid emia with LDL: 136, Cholestero l: 222 and triglyceri fabiana: 152.Recc to pt to restart her statin rosuvastat in 20 mg 0.5 tabs daily and retest after 3 m. Hypertensi ve renal disease 48086747 I12.9 stable on current meds. continue medicaton and low sodium diet. Recom weekly blood pressure home monitoring . [id number] Brodie Ruiz MD [facility] [address] [facility] [address] [place] [address] 01/08/2025 12:46:38 01/08/2025 15:52:13 Contact dermatitis caused by plants 625175265 L25.5 921920 no sig help c otc sigifredo-10wil l give triam. 0.5% cream bid x 7-10 daysin future, consider using 'beka block' ac attempting to remove poison beka [id number] Brodie Ruiz MD Main Office [address] [facility] [address] [facility] [place] [address] 04/12/2025 10:28:06 04/12/2025 11:16:49 Upper respiratory tract finding 192482721 R09.89 03222053 Flu A and B and COVID tests are negative. Pt is advised to increase hydration, take Mucinex DM for congestion , rest. Insomnia d isorder related to another mental disorder 03479917 F41.9 F51.05 78998354 recom to hold clonazepam 0.5 mg Begin trial of trazodone 50 mg at HS for sleep./ continue sertraline 150 mg in the am. F/u 6-8 week. [id number] Brodie Ruiz MD Main Office [address] [facility] [address] [place] [address] 04/16/2025 13:54:43 04/16/2025 14:54:38 Renal disorder due to type 2 diabetes mellitus 115812156 E11.22 Great diabetic control with A1c of 5.3%.Recom to increase Ozempic to max dose due to weight plateaued out with BMI at 38.1. Pt tolerates medication well. WE will follow up in 3 m. Chronic ki dney disease stage 1 472105005 N18.1 Continue losartan 100 mg daily. Hypertensi ve renal disease 53460094 I12.9 stable on current meds. continue medicaton and low sodium diet. Recom weekly blood pressure home monitoring . repeat bmp. Hyperlipidemia 49341837 E78.49 7210358 Lipid panel showed hyperlipid emia with LDL: 136, Cholestero l: 222 and triglyceri fabiana: 152.Recc to pt to continue rosuvastat in 20 mg 0.5 tabs daily and retest lipids. Acute left otitis media 049492859 H66.92 [id number] begin antibiotic treatment as directed as well as non stimulant decongesta nt as discussed. [id number] Meena Greco MD Tele[facility] [address] [facility] [address] [place] [address] 04/30/2025 12:34:55 04/30/2025 15:22:14 Dysuria 09636665 R30.0 SYMPTOMS: burning with urination? yes frequency? [...] Recommende d action Antibiotic treatment Urinary symptoms 1556648 08 R39.9 19675315 pt will get urine sample - will rx empiricall y c cipro cont push fluids, consider prn pyridium recommend probiotics while on abx [id number] Rupesh Vallecillo MD Main Office 36[address] [facility] [address] [place] [address] 06/20/2025 15:26:46 06/20/2025 16:36:29 Pain in right arm 627071042 M79.601 943037 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 She has been getting some help from increased dose of gabapentin . [id number] Brodie Ruiz MD Main Office [address] [facility] [address] [place] [address] 07/16/2025 10:09:30 07/16/2025 10:44:46 Renal disorder due to type 2 diabetes mellitus 799077189 E11.22 Great diabetic control with A1c of 5.2%.Recom to continue max dose of Ozempic , but consider switching to mounjaro due to weight increase. 10 year ASCVD risk is 21.4%to . Current bmi is over 37. WE will repeat labs prior to next visit. Pt was encouraged to increase exercise activity and continue low calorie low carb diet. F/u 4 m. Chronic ki dney disease stage 1 [id number] N18.1 Continue losartan 100 mg. Hypertensi ve renal disease [id number] I12.9 stable on current meds. continue medicaton and low sodium diet. Recom weekly blood pressure home monitoring . repeat bmp. Mixed hyperlipidemia [id number] E78.2 [id number] Mild mixed hyperlipid emia . pt was switched to rosuvastat in 20 mg. Recommend to retest lipids. Health Concerns Section Related Observation LastModified by Organization Detai ls LastModified Time None Recorded Concern Status LastModified by Organization Details LastModified Time None Recorded Advance Directives Directive N: Payers Insurance Date Sequence Insurance Name Policy Number Policy Munson Covered Member ID Munson Member ID Guarantor Name 07/16/2025 1 [facility] [place] HMO BLUE (MEDICARE REPLACEMENT HMO) [id number] Kanchan Joiner [id number] Kanchan Joiner 03/25/2021 1 [facility] ([place]) [id number] Kanchan Joiner [id number] Kanchan Joiner 03/25/2021 1 MEDICARE B-PA: [facility] [employer] Kanchan Joiner [id number] Kanchan Joiner 03/25/2021 1 [facility] [place] [place] [id number] Kanchan Joiner [id number] Kanchan Joiner Notes Date Note Type Note Provider Name and Address Organization Details Recorded Time 04/12/2025 text/html ROS as noted in the HPI 70 year old diabetic female c/o sore throat started 2 days ago as well as sinus congestion. NO cough, headache , fever, shills. Pt reports her was sick first and negative for COVID. Pt c/o unable to maintain sleep despite taking clonazepam 0.5 mg at HS. Has residual anxiety although takes sertraline 150 mg daily. Jumana Villalobos PA-C [address], [id number], [facility] 04/12/2025 12:35:14 04/16/2025 text/html Hypertension F/UReported by PatientHPIFor associated symptoms, patient reportschest pain (contributes it to anxiety)but reportsno dizziness,no lightheadedness,no shortness of breath,no palpitations, andno edema. For lifestyle, patient reportshigh salt intakebut reportsexercises 3 times/weekandexercises for 20 minutes/day. For medications, patient reportstaking medications as directedandchecks blood pressure at home, range: (116s/ 65-75s)(forgot to take bp med last 2 days, took it this am).stable blood pressure in office. Meds: losartan 100, amlodipine 5 mg. HyperlipidemiaReported by PatientHPIFor type of hyperlipidemia, patient reportscombined. For duration, patient reportschronic. For control, patient reportsnot at goal. For risk factors, patient reportsdiabetes,hypert ension, andobesity. For prior tests, patient reportshighest cholesterol level: (222)andhighest ldl level:(ldl 136). For current therapy, patient reportscurrently taking:(not currently taking her meds- makes her legs hurt and she looses balance (going upstairs)). For compliance, patient reportsexercises (walk everyday 3x a wk,). Diabetes F/UReported by PatientHPIFor context, patient reportsnot taking aspirin dailybut reportsnormal range of home blood sugars (in the low 100s) (85-95),seeing eye doctor regularly,checking feet regularly,not missing doses of medications, andno side effects from medications(eye doctor: [facility] get eye exam note,checks feet dailyreports toe paresthesias). For associated symptoms, patient reportsweight gain (___ lbs),weight loss (5 lbs),sweats (at night),increased thirst, andnumbness of feetbut reportsno headaches,no increased appetite,no increased urination,no blurred vision, andno calluses on feet(numbness near toes, night sweats, does not drink water frequently). For review finger sticks, patient reportsfastin-95(checking her bs once a day in the morning.).A1C today is 5.3 % .Meds: Now on Ozempic 1 mg weekly and tolerates it well.CKD stg 1 , no microalbuminuria. Blood pressure is stable. ROS as noted in the HPI 70 year old female for f/u on DM. C/o respiratory symptoms are persisting. Now pt has L. ear pain and decreased hearing. NO fever, chills. Jumana Villalobos PA-C [address] [address], [place], [phone], [facility] 04/16/2025 15:35:20 04/30/2025 text/html Patient c/o possible UTI x 2 days.no h/o recurrent utidid take abx 2 wks ago for OMdenies yeast infxnc/o dysuria, freq, hematuria Jonas Villalobos PA-C [address] [address], [place], [phone], [facility] 04/30/2025 14:36:05 06/20/2025 text/html Mamta Boles [facility] student: Pt reports 3 weeks of Rt arm pain described as electric shock that shoots down her arm and causing hand/finger numbness. Patient endorses symptoms feel exactly the same from 2022 that resolved for about 1 yr and recently reoccurred 3 weeks ago. Patient reports she feels like when any types of pressure is applied or laying in bed as to when she gets the pain/numbness. Denies it occurring randomly through out the day. She currently is increasing her Gabapentin 300mg as needed to help with the pain such 1 taking 600mg 3 times a day opposed to the prescribed dosage of 2 times daily. Patient reports she doesn't feel like the gabapentin is helping any longer. Heating pad or hot showers don't alleviate the pain either. Patient denies any imaging or seeing a specialist in the past for this issue. Rupesh Vallecillo MD [address], [phone], [facility] 06/26/2025 17:50:00 07/16/2025 text/html Hypertension F/UReported by PatientHPIFor associated symptoms, patient reportschest pain (contributes it to anxiety)but reportsno dizziness,no lightheadedness,no shortness of breath,no palpitations, andno edema. For lifestyle, patient reportshigh salt intakebut reportsexercises 3 times/weekandexercises for 20 minutes/day. For medications, patient reportstaking medications as directedandchecks blood pressure at home, range: (116s/ 65-75s)(forgot to take bp med last 2 days, took it this am).stable blood pressure in office. Meds: losartan 100, amlodipine 5 mg. HyperlipidemiaReported by PatientHPIFor type of hyperlipidemia, patient reportscombined. For duration, patient reportschronic. For control, patient reportsnot at goal. For risk factors, patient reportsdiabetes,hypert ension, andobesity. For prior tests, patient reportshighest cholesterol level: (222)andhighest ldl level:(ldl 136). For current therapy, patient reportscurrently taking:(not currently taking her meds- makes her legs hurt and she looses balance (going upstairs)). For compliance, patient reportsexercises (walk everyday 3x a wk,). Diabetes F/UReported by PatientHPIFor context, patient reportsnot taking aspirin dailybut reportsnormal range of home blood sugars (in the low 100s) (85-95),seeing eye doctor regularly,checking feet regularly,not missing doses of medications, andno side effects from medications(eye doctor: [facility] get eye exam note,checks feet dailyreports toe paresthesias). For associated symptoms, patient reportsweight gain (___ lbs),weight loss (5 lbs),sweats (at night),increased thirst, andnumbness of feetbut reportsno headaches,no increased appetite,no increased urination,no blurred vision, andno calluses on feet(numbness near toes, night sweats, does not drink water frequently). For review finger sticks, patient reportsfastin-95(checking her bs once a day in the morning.).A1C today is 5.2 % .Meds: Now on Ozempic 2 mg weekly and tolerates it well.CKD stg 1 , no microalbuminuria. Blood pressure is stable. ROS as noted in the HPI Jumana Ariel BORREGO [address] [address], [place], [phone], [facility] 07/16/2025 10:54:56 OBGyn Episode No OBEpisode recorded.
--- OUTSIDE RECORDS SUMMARY | 2025-07-29 19:58 | XMS_ITS | Continuity of Care Document ---
Author Organization [facility], Main Office Address [address] [place] [address] Care Team Providers Care Seat Cover Maker Name Role Phone PEPPER BOCANEGRA Orthopedic Surgeon [phone] GUTIERREZ EDOUARD Power Saw Operator [phone] AIDAN MONK Hand Fur Cleaner [facility] (MARKUS REYNAGA) Orthopedic Surgeon [facility] Sports Medic ine [facility] Mobility Architect LORENZO BOYKIN Urologist ALMITA VILLALOBOS Primary Care Provider [phone] Assessment No assessment recorded. Plan of Treatment Reminders Order Date Submit Date Provider Last Modified By Organization Details Last Modified Time Details Appointments [id number] 2025 10:00A Genesis Villalobos PA-C Not available Not available Not available Lab BMP, serum or plasma 2024 025 POLLY [facility] (Centralized Electronic Ordering - All Locations), Patient Can Go To The Location Of Their Choice, [id number] 07/16/2025 10:34:10 hemoglobi n A1C, fingersti ck 2024 025 In-Office Order, Internal Use Only DO Not Attach Compendium DO Not Attach Compendium, Do Not Delete/merge, [id number] 07/16/2025 11:01:48 lipid panel, serum 2024 025 POLLY [facility] (Centralized Electronic Ordering - All Locations), Patient Can Go To The Location Of Their Choice, [id number] 07/16/2025 10:34:12 Referral None recorded. Procedures None recorded. Surgeries None recorded. Imaging None recorded. Medication Orders None recorded. Patient TargetsNo targets recorded. Patient Instructions Encounter Date Encounter Id Patient Instructions Last Modified By Organization Details Last Modified Time 07/16/2025 [id number] dash diet: care instructions [email or web address] Not available 07/16/2025 10:38:19 chronic kidney disease: [...] effects from medication or cost of medication. [email or web address] Not available 07/16/2025 10:15:55 Reason for Referral None Reported. Results Created Date Observation Date Name Description Value Unit Range Abnormal Flag Note LastModifiedBy Organization Detail LastModifiedTime 07/16/2007/16/2025 hemog lobin A1C, finge rstic k A1C 5.2 % 4-6 normal Not Available In-Office Order Internal Use Only DO Not Attach Compendium DO Not Attach Compendium, Do Not Delete/merge, [id number] 07/16/2025 10:21:25 Result Notes None recorded. Problems Name Problem SNOMED Code Status Onset Date Resolution Date Notes Provider Name and Address Organization Details Recorded Time Dysuria 35394224 Completed 08/02/[address] [facility] [address], [place], [address] , [facility] 4 13:42:37 Depressi ve disorder 79526829 Completed 08/02/2017 Luz Maria martinez [facility] 7 14:57:07 Fatigue 25754904 Completed 01/26/2017 Shikha martinez [facility] 7 12:48:11 Vertigo 766154979 Completed 08/02/2017 Luz Maria martinez [facility] 7 14:57:16 Arthropa thy of knee joint 899191485 Completed 08/02/2017 Luz Maria martinez [facility] 7 14:56:45 Pneumoni a 611762989 Completed 08/02/2017 LIN Pavon, [facility] 7 14:38:57 Administ ration of bacteria l and viral vaccine Completed 200702/26/2014 RECORDED 04/22/20 08 11:02AM BY AKUA BAILEY MA, OFFICE VISIT Almita Villalobos PA-C [address], [place], [address] , [facility] 6 14:10:13 Pain of hip region 14491659 Completed 200702/26/2014 IMPRESSI ON: LEFT HIP PAIN WITH KNOWN ARTHRITI S, WILL CHECK XRAY AND REFER TO ORTHO, NEW PROBLEM, KNOWN OA, TREAT WITH MOTRIN, WATER EXERCISE S; RECORDED 04/22/20 08 10:35AM BY KRISHNA HUGGINS ON/DUC Villalobos PA-C [address], [place], [address] , [facility] 6 14:10:12 Administ ration of bacteria l and viral vaccine Completed 200703/21/2014 RECORDED 04/22/20 08 11:02AM BY AKUA BAILEY MA, OFFICE VISIT Almita Villalobos PA-C [address] [facility] [address], [place], [address] , [facility] 6 14:10:13 Pain of hip region 01709938 Completed 200703/21/2014 IMPRESSI ON: LEFT HIP PAIN WITH KNOWN ARTHRITI S, WILL CHECK XRAY AND REFER TO ORTHO, NEW PROBLEM, KNOWN OA, TREAT WITH MOTRIN, WATER EXERCISE S; RECORDED 04/22/20 08 10:35AM BY KRISHNA HUGGINS ON/ADDEN DUM Almita Villalobos PA-C [address], [place], [address] , [facility] 6 14:10:12 Administ ration of bacteria l and viral vaccine Completed 200703/22/2014 RECORDED 04/22/20 08 11:02AM BY AKUA BAILEY MA, OFFICE VISIT Almitaaudleia Villalobos PA-C [address], [place], [address] , [facility] 6 14:10:13 Pain of hip region 71870093 Completed 200703/22/2014 IMPRESSI ON: LEFT HIP PAIN WITH KNOWN ARTHRITI S, WILL CHECK XRAY AND REFER TO ORTHO, NEW PROBLEM, KNOWN OA, TREAT WITH MOTRIN, WATER EXERCISE S; RECORDED 04/22/20 08 10:35AM BY KRISHNA HUGGINS ON/ADDEN DUM Almita Villalobos PA-C [address], [place], [address] , [facility] 6 14:10:12 Screenin g for malignan t neoplasm of colon Completed 200702/26/2014 RECORDED 07/31/20 08 11:15AM BY AKUA BAILEY MA, ANNOTATI ON/ADDEN DUM Almita Villalobos PA-C [address], [place], [address] , [facility] 6 14:10:13 Screenin g for malignan t neoplasm of colon Completed 200703/21/2014 RECORDED 07/31/20 08 11:15AM BY AKUA BAILEY MA, ANNOTATI ON/ADDEN DUM Almita Villalobos PA-C [address], [place], [address] , [facility] 6 14:10:13 Screenin g for malignan t neoplasm of colon Completed 200703/22/2014 RECORDED 07/31/20 08 11:15AM BY AKUA BAILEY MA, KRISHNA ON/ADDEN DUM Almita Villalobos PA-C [address], [place], [address] , [facility] 6 14:10:13 Cough 07209051 Completed 200802/26/2014 RECORDED 09/18/19 09 1:00PM BY KRISHNA LEES ON/ADDEN DUM Almita Villalobos PA-C [address], [place], [address] , [facility] 6 14:10:12 Cough 09325567 Completed 200803/21/2014 RECORDED 09/18/19 09 1:00PM BY KRISHNA LEES ON/ADDEN DUM Almita Villalobos PA-C [address], [place], [address] , [facility] 6 14:10:12 Cough 32575751 Completed 200803/22/2014 RECORDED 09/18/19 09 1:00PM BY KRISHNA LEES ON/ADDEN DUM Almita Villalobos PA-C [address], [place], [address] , [facility] 6 14:10:12 Acute sinusiti s 89303497 Completed 200902/26/2014 RECORDED 06/19/20 10 9:07AM BY KRISHNA ROSAS ON/ADDEN DUM Almita Villalobos PA-C [address], [place], [address] , [facility] 6 14:10:12 Chronic nonalcoh olic liver disease 45181152 Completed 200902/26/2014 IMPRESSI ON: CHECK LFT'S; RECORDED 06/19/20 10 9:06AM BY KRISHNA ROSAS ON/ADDEN DUM Shikha martinez, [facility] 7 12:48:10 Acute sinusiti s 66752096 Completed 200903/21/2014 RECORDED 06/19/20 10 9:07AM BY LIN JUAN, ANNOTATI ON/ADDEN DUM Almita Villalobos PA-C [address], [place], [address] , [facility] 6 14:10:12 Acute sinusiti s 94300058 Completed 200903/22/2014 RECORDED 06/19/20 10 9:07AM BY LIN JUAN, KRISHNA ON/ADDEN DUM Almita Villalobos PA-C [address], [place], [address] , [facility] 6 14:10:12 Abdomina l pain 97621102 Completed 201102/26/2014 RECORDED 06/05/20 12 1:40PM BY KRISHNA PAVON ON/ADDEN DUM Almita Villalobos PA-C [address], [place], [address] , [facility] 6 14:10:12 Left lower quadrant pain 489457163 Completed 201102/26/2014 RECORDED 06/05/20 12 1:40PM BY KRISHNA PAVON ON/ADDEN DUM Almita Villalobos PA-C [address], [place], [address] , [facility] 6 14:10:13 Allergic rhinitis 39230874 Completed 201102/26/2014 IMPRESSI ON: CONTINUE NASAL SPRAY; RECORDED 06/05/20 12 1:40PM BY KRISHNA PAVON ON/ADDEN DUM Almita Villalobos PA-C [address], [place], [address] , [facility] 6 14:10:12 Screenin g for malignan t neoplasm of breast Completed 201102/26/2014 RECORDED 06/05/20 12 1:40PM BY KRISHNA PAVON ON/ADDEN DUM Almita QUESADAC [address], [place], [address] , [facility] 6 14:10:13 Screenin g for malignan t neoplasm of cervix Completed 201102/26/2014 RECORDED 06/05/20 12 1:40PM BY KRISHNA PAVON ON/ADDEN DUM Almita QUESADAC [address], [place], [address] , [facility] 6 14:10:13 Malaise and fatigue 051818305 Completed 201102/26/2014 RECORDED 06/05/20 12 1:40PM BY KRISHNA PAVON ON/DUC QUESADAC [address] [facility] [address], [place], [address] , [facility] 6 14:10:12 Right upper quadrant pain 122717633 Completed 201102/26/2014 IMPRESSI ON: R SIDED ABD [...] RECORDED 06/05/20 12 1:40PM BY KRISHNA PAVON ON/DUC QUESADAC [address], [place], [address] , [facility] 6 14:10:13 Abdomina l pain 50235277 Completed 201103/21/2014 RECORDED 06/05/20 12 1:40PM BY KRISHNA PAVON ON/ADDEN DUM Almita Villalobos PA-C [address], [place], [address] , [facility] 6 14:10:13 Left lower quadrant pain 930946107 Completed 201103/21/2014 RECORDED 06/05/20 12 1:40PM BY KRISHNA PAVON ON/ADDEN DUM Almita Villalobos PA-C [address], [place], [address] , [facility] 6 14:10:13 Allergic rhinitis 32760557 Completed 201103/21/2014 IMPRESSI ON: CONTINUE NASAL SPRAY; RECORDED 06/05/20 12 1:40PM BY KRISHNA PAVON ON/ADDEN DUM Almita Villalobos PA-C [address], [place], [address] , [facility] 6 14:10:12 Screenin g for malignan t neoplasm of breast Completed 201103/21/2014 RECORDED 06/05/20 12 1:40PM BY KRISHNA PAVON ON/ADDEN DUM Almita Villalobos PA-C [address], [place], [address] , [facility] 6 14:10:13 Screenin g for malignan t neoplasm of cervix Completed 201103/21/2014 RECORDED 06/05/20 12 1:40PM BY KRISHNA PAVON ON/ADDEN DUM Almita Villalobos PA-C [address], [place], [address] , [facility] 6 14:10:13 Malaise and fatigue 682217459 Completed 201103/21/2014 IMPRESSI ON: CONTINUE MEDS, KEEPING MOOD EVEN; RECORDED 06/05/20 12 1:39PM BY KRISHNA PAVON ON/ADDEN DUM Almita Villalobos PA-C [address] [facility] [address], [place], [address] , [facility] 6 14:10:12 Right upper quadrant pain 051319890 Completed 201103/21/2014 IMPRESSI ON: R SIDED ABD [...] PAVON ON/ADDEN DUM Almita Villalobos PA-C [address] [address], [place], [address] , [facility] 6 14:10:13 Abdomina l pain 02472888 Completed 201103/22/2014 RECORDED 06/05/20 12 1:40PM BY KRISHNA PAVON ON/ADDEN DUM Almita Villalobos PA-C [address] [address], [place], [address] , [facility] 6 14:10:13 Left lower quadrant pain 626028347 Completed 201103/22/2014 RECORDED 06/05/20 12 1:40PM BY KRISHNA PAVON ON/ADDEN DUM Almita Villalobos PA-C [address] [address], [place], [address] , [facility] 6 14:10:13 Allergic rhinitis 46506025 Completed 201103/22/2014 IMPRESSI ON: CONTINUE NASAL SPRAY; RECORDED 06/05/20 12 1:40PM BY KRISHNA PAVON ON/ADDEN DUM Almita Villalobos PA-C [address] [address], [place], [address] , [facility] 6 14:10:12 Screenin g for malignan t neoplasm of breast Completed 201103/22/2014 RECORDED 06/05/20 12 1:40PM BY KRISHNA PAVON ON/ADDEN DUM Almita FLETCHER-C [address] [facility] [address], [place], [address] , [facility] 6 14:10:13 Screenin g for malignan t neoplasm of cervix Completed 201103/22/2014 RECORDED 06/05/20 12 1:40PM BY KRISHNA PAVON ON/ADDEN NAT FLETCHER-C [address] [address], [place], [address] , [facility] 6 14:10:13 Malaise and fatigue 280208312 Completed 201103/22/2014 IMPRESSI ON: CONTINUE MEDS, KEEPING MOOD EVEN; RECORDED 06/05/20 12 1:39PM BY KRISHNA PAVON ON/DUC FLETCHER-C [address] [address], [place], [address] , [facility] 6 14:10:12 Right upper quadrant pain 104247336 Completed 201103/22/2014 IMPRESSI ON: R SIDED ABD [...] 1:40PM BY KRISHNA PAVON ON/ADDEN DUM Almita FLETCHER-C [address] [address], [place], [address] , [facility] 6 14:10:13 Acne 83552703 Completed 201102/26/2014 IMPRESSI ON: IS OFF DOXYCYCL INE, MAY HAVE BEEN RELATED TO THER VERTIGO, NO HEADACHE OR OTHER NEUROLOG ICAL ISSUES; RECORDED 08/14/20 12 9:35AM BY MUSA VILLALOBOS MA, KRISHNA ON/ADDEN DUM Almita Villalobos PA-C [address], [place], [address] , [facility] 6 14:10:12 Follow-u p encounte r Completed 201102/26/2014 RECORDED 08/14/20 12 9:35AM BY MUSA VILLALOBOS MA, KRISHNA ON/ADDEN DUM Almita Villalobos PA-C [address], [place], [address] , [facility] 6 14:10:13 Family history of Cardiova scular disease 283912131 Completed 201102/26/2014 IMPRESSI ON: OT WITH NEG US OF ABDOMEN THIS MONTH AND HAD CT OF ABDOMEN 03/24 THAT SHOWED A NL AORTA, NO ANEURYSM , NO FURTHER WORKUP NEEDED.; RECORDED 08/14/20 12 9:35AM BY MUSA VILLALOBOS MA, KRISHNA ON/ADDEN DUM Almita Villalobos PA-C [address], [place], [address] , [facility] 6 14:10:13 Fibromyo sitis 86958167 Completed 201102/26/2014 RECORDED 08/14/20 12 9:35AM BY MUSA VILLALOBOS MA, KRISHNA ON/ADDEN DUM Almita Villalobos PA-C [address], [place], [address] , [facility] 6 14:10:12 Dizzines s and giddines s 010439564 Completed 201102/26/2014 IMPRESSI ON: HAD IN THE PAST IMPROVIN G, NOTE FOR WORK WRITTEN, USE MECLIZIN E NEEDED. IF NOT IMPROVIN G PT TO SET UP APPT WITH ENT AND MAY NEED REHAB.; RECORDED 08/14/20 12 9:35AM BY MUSA VILLALOBOS MA, KRISHNA ON/ADDEN DUM Almitaaudelia FLETCHER-C [address], [place], [address] , [facility] 6 14:10:12 Herpes zoster 2918672 Completed 201102/26/2014 RECORDED 08/14/20 12 9:35AM BY MUSA VILLALOBOS MA, KRISHNA ON/ADDEN DUM Almita FLETCHER-C [address], [place], [address] , [facility] 6 14:10:12 Acne [id number] Completed 201103/21/2014 IMPRESSI ON: IS OFF DOXYCYCL INE, MAY HAVE BEEN RELATED TO THER VERTIGO, NO HEADACHE OR OTHER NEUROLOG ICAL ISSUES; RECORDED 08/14/20 12 9:35AM BY MUSA VILLALOBOS MA, KRISHNA ON/SHELLEYEN DUM Almita FLETCHER-C [address], [place], [address] , [facility] 6 14:10:12 Follow-u p encounte r Completed 201103/21/2014 RECORDED 08/14/20 12 9:35AM BY MUSA VILLALOBOS MA, ANNOTATI ON/ADDEN DUM Almitazahraa FLETCHER-C [address], [place], [address] , [facility] 6 14:10:13 Family history of Cardiova scular disease [id number] Completed 201103/21/2014 IMPRESSI ON: OT WITH NEG US OF ABDOMEN THIS MONTH AND HAD CT OF ABDOMEN 03/24 THAT SHOWED A NL AORTA, NO ANEURYSM , NO FURTHER WORKUP NEEDED.; RECORDED 08/14/20 12 9:35AM BY MUSA BOLCUN, MA, ANNOTATI ON/ADDEN DUM Almita Villalobos PA-C [address], [place], [address] , [facility] 6 14:10:13 Fibromjuan alberto colin 11453070 Completed 201103/21/2014 RECORDED 08/14/20 12 9:35AM BY MUSA VILLALOBOS MA, KRISHNA ON/ADDEN DUM Almita Villalobos PA-C [address], [place], [address] , [facility] 6 14:10:12 Dizzines s and giddines s 930037264 Completed 201103/21/2014 IMPRESSI ON: HAD IN THE PAST IMPROVIN G, NOTE FOR WORK WRITTEN, USE MECLIZIN E NEEDED. IF NOT IMPROVIN G PT TO SET UP APPT WITH ENT AND MAY NEED REHAB.; RECORDED 08/14/20 12 9:35AM BY MUSA VILLALOBOS MA, KRISHNA ON/ADDEN DUM Almita Villalobos JUSTINE-C [address], [place], [address] , [facility] 6 14:10:12 Herpes zoster 9779139 Completed 201103/21/2014 RECORDED 08/14/20 12 9:35AM BY MUSA VILLALOBOS MA, KRISHNA ON/ADDEN DUM Almita Villalobos JUSTINE-C [address], [place], [address] , [facility] 6 14:10:12 Acne [id number] Completed 201103/22/2014 IMPRESSI ON: IS OFF DOXYCYCL INE, MAY HAVE BEEN RELATED TO THER VERTIGO, NO HEADACHE OR OTHER NEUROLOG ICAL ISSUES; RECORDED 08/14/20 12 9:35AM BY MUSA VILLALOBOS MA, ANNOTATI ON/ADDEN DUM Almita Ariel FLETCHER-C [address], [place], [address] , [facility] 6 14:10:12 Follow-u p encounte r Completed 201103/22/2014 RECORDED 08/14/20 12 9:35AM BY MUSA VILLALOBOS MA, KRISHNA ON/ADDEN DUM Almita Villalobos PA-C [address], [place], [address] , [facility] 6 14:10:13 Family history of Cardiova scular disease [id number] Completed 201103/22/2014 IMPRESSI ON: OT WITH NEG US OF ABDOMEN THIS MONTH AND HAD CT OF ABDOMEN 03/24 THAT SHOWED A NL AORTA, NO ANEURYSM , NO FURTHER WORKUP NEEDED.; RECORDED 08/14/20 12 9:35AM BY MUSA VILLALOBOS MA, KRISHNA ON/ADDEN DUM Almita Villalobos PA-C [address], [place], [address] , [facility] 6 14:10:13 Fibromyo sitis 58029792 Completed 201103/22/2014 RECORDED 08/14/20 12 9:35AM BY MUSA VILLALOBOS MA, KRISHNA ON/ADDEN DUM Almita Villalobos PA-C [address], [place], [address] , [facility] 6 14:10:12 Dizzines s and giddines s 609878471 Completed 201103/22/2014 IMPRESSI ON: HAD IN THE PAST IMPROVIN G, NOTE FOR WORK WRITTEN, USE MECLIZIN E NEEDED. IF NOT IMPROVIN G PT TO SET UP APPT WITH ENT AND MAY NEED REHAB.; RECORDED 08/14/20 12 9:35AM BY MUSA VILLALOBOS MA, KRISHNA ON/ADDEN DUM Almita Villalobos PA-C [address], [place], [address] , [facility] 6 14:10:12 Herpes zoster 8053973 Completed 201103/22/2014 RECORDED 08/14/20 12 9:35AM BY MUSA VILLALOBOS MA, KRISHNA ON/ADDEN DUM Almita Villalobos PA-C [address], [facility] [place], [address] , [facility] 6 14:10:12 Blood chemistr y outside referenc e range 297435508 Completed 201202/26/2014 RECORDED 09/16/19 13 1:53AM BY KRISHNA PAVON ON/ADDEN DUM Shikha martinez [facility] 7 12:47:40 Essentia l hyperten cata 77721488 Completed 201202/26/2014 RECORDED 09/16/19 13 1:54AM BY KRISHNA PAVON ON/ADDEN DUM Shanita Louis null, [facility] 0 10:07:52 Essentia l hyperten cata 41640847 Completed 201203/21/2014 RECORDED 09/16/19 13 1:54AM BY KRISHNA PAVON ON/ADDEN DUM Shanita Louis null, [facility] 0 10:07:52 Essentia l hyperten cata 36678085 Completed 201203/22/2014 RECORDED 09/16/19 13 1:54AM BY KRISHNA PAVON ON/ADDEN DUM Shanita Louis null, [facility] 0 10:07:52 Tobacco user [id number] Completed 201202/26/2014 RECORDED 06/08/20 13 1:11PM BY KRISHNA SHAFFER ON/ADDEN DUM LIN Ling, [facility] 8 10:43:17 History of clinical finding in subject 430445704 Completed 201201/26/2017 Shikha martinez, [facility] 7 12:48:01 Adult health examinat ion Completed 201202/26/2014 IMPRESSI ON: MAMMOGRA M, PAP SMEAR AND COLONOSC OPY UTD, IS TRYING TO HELP WITH WEIGHT LOSS; RECORDED 06/08/20 13 1:11PM BY SUZETTE SHAFFERATI ON/ADDEN DUM Shikha Hamm MA null, [facility] 7 12:47:45 Glucose level outside referenc e range 454038212 Completed 201202/26/2014 IMPRESSI ON: RECHECK FASTING AND A1C; RECORDED 06/08/20 13 1:11PM BY SUZETTE SHAFFERATI ON/ADDEN DUM Luz Maria Shayy vanessa null, [facility] 9 16:04:41 Knee pain Completed 201202/26/2014 IMPRESSI ON: WILL BE GETTING INJECTIO NS; RECORDED 06/08/20 13 1:11PM BY SUZETTE SHAFFERATI ON/ADDEN DUM Almita Ariel PA-C [address], [place], [address] , [facility] 6 14:10:12 Laborato ry procedur e performe d 670699310 Completed 201202/26/2014 RECORDED 06/08/20 13 1:11PM BY KRISHNA SHAFFER ON/ADDEN DUM Almita Ariel PA-C [address], [place], [address] , [facility] 6 14:10:13 Tobacco user [id number] Completed 201203/21/2014 RECORDED 06/08/20 13 1:11PM BY SUZETTE SHAFFERATI ON/ADDEN DUM Akua zelaya MA null, [facility] 8 10:43:17 Knee pain Completed 201203/21/2014 IMPRESSI ON: WILL BE GETTING INJECTIO NS; RECORDED 06/08/20 13 1:11PM BY SUZETTE SHAFEFRATI ON/ADDEN DUM Almita Villalobos PA-C [address], [place], [address] , [facility] 6 14:10:12 Laborato ry procedur e performe d [id number] Completed 201203/21/2014 RECORDED 06/08/20 13 1:11PM BY SUZETTE SHAFFERATI ON/ADDEN DUM Almita Ariel FLETCHER-C [address], [place], [address] , [facility] 6 14:10:13 Tobacco user [id number] Completed 201203/22/2014 RECORDED 06/08/20 13 1:11PM BY SUZETTE SHAFFERATI ON/ADDEN DUM [facility] 10:[facility]17 Knee pain Completed 201203/22/2014 IMPRESSI ON: WILL BE GETTING INJECTIO NS; RECORDED 06/08/20 13 1:11PM BY SUZETTE SHAFFERATI ON/ADDEN DUM Almita Ariel FLETCHER-C [address], [place], [address] , [facility] 6 14:10:12 Laborato ry procedur e performe d [id number] Completed 201203/22/2014 RECORDED 06/08/20 13 1:11PM BY KRISHNA SHAFFER ON/ADDEN DUM Almita Ariel PA-C [address], [place], [address] , [facility] 6 14:10:13 Adult health examinat ion Completed 201301/26/2017 IMPRESSI ON: PAP, MAMMO AND COLONOSC OPY UTD, PT NEEDS TO WORK ON WEIGHT LOSS.; RECORDED 12/29/19 14 1:57PM BY LUZ MARIA Massey MD, OFFICE VISIT Shikha martinez, [facility] 7 12:47:45 Glucose level outside referenc e range 796806517 Completed 201303/14/2019 Luz Maria martinez [facility] 9 16:04:41 Blood chemistr y outside referenc e range 226801762 Completed 201301/26/2017 Shikha martinez [facility] 7 12:47:40 Arthropa thy 345831200 Completed 201308/02/2017 Luz Maria martinez [facility] 7 14:57:11 Enthesop athy of hip region 11556362 Completed 201308/02/2017 Luz Maria martinez [facility] 7 14:57:04 Divertic ulitis of colon 503835806 Completed 201309/10/2024 Almita Villalobos PA-C [address], [place], [address] , [facility] 5 11:27:56 Gastroes ophageal reflux disease 248049256 Active 2013 Not Available [facility] 2 04:47:11 Chronic nonalcoh olic liver disease 83225265 Active 2013 [facility] Available [facility] 2 04:47:11 Pure hypercho lesterol emia 675183866 Completed 201308/02/2017 Luz Maria martinez [facility] 7 14:56:42 Insomnia 757823955 Active 2013 Not Available [facility] 2 04:47:11 Irritabl e bowel syndrome 31299233 Active 2013 Not Available [facility] 2 04:47:11 Disease of liver [id number] Completed 201308/02/2017 Luz Maria martinez [facility] 7 14:57:00 Single major depressi ve episode Completed 201308/02/2017 LIN Pavon [facility] 7 14:39:15 Tobacco user [id number] Completed 201311/29/2017 Removal Reason: quit Akua LIN Ríos, [facility] 8 10:43:17 Contact dermatit is [id number] Completed 201308/02/2017 LIN Pavon, [facility] 7 14:39:21 Ex-smoke r [id number] Active 2017 Not Available [facility] 2 04:47:11 Type 2 diabetes mellitus controll ed by diet [id number] 9101 Completed 201812/19/2019 Almita Villalobos PA-C [address], [place], [address] , [facility] 0 14:20:57 Chronic kidney disease stage 1 964402424 Active 2018 Not Available [facility] 2 04:47:11 Hyperten sive renal disease 12923184 Active 2019 Not Available [facility] 2 04:47:11 Renal disorder due to type 2 diabetes mellitus 869908579 Active 2019 Not Available [facility] 2 04:47:11 Exposure to SARS-CoV -2 Completed 202003/17/2021 Removal Reason: Problem marked historic al by user [email or web address] 5 from the COVID-19 watch flag Susannah Phan michelle, [facility] 1 15:10:38 COVID-19 [id number] Completed 202003/17/2021 Removal Reason: Problem marked historic al by user [email or web address] 5 from the COVID-19 watch flag Susannah Phan michelle [facility] 1 15:10:38 Generali zed anxiety disorder 33620909 Active 2022 Almita Villalobos PA-C [address], [place], [address] , [facility] 3 10:55:49 Lumbar spondylo sis 185511052 Active 2022 Almita Villalobos PA-C [address], [place], [address] , [facility] 3 11:11:58 Body mass index 30+ - obesity 521674221 Active 2023 Almita Villalobos PA-C [address] [address], [place], [address] , [facility] 4 11:20:33 Moderate major depressi on, single episode 89182459 Active 2023 Almita Villalobos PA-C [address] [facility] [address], [place], [address] , [facility] 4 13:08:10 Dysuria 62101876 Active 2023 RAJESH Zarate [address] [address], [place], [address] , [facility] 4 13:42:37 Constipa tion 19709330 Active 2023 RAJESH Zarate [address] [address], [place], [address] , [facility] 4 13:44:10 Rectal polyp 80693707 Active 2024 2 2-3 mm rectal polyps Almita Villalobos PA-C [address] [facility] [address] [facility], [place], [address] , [facility] 5 14:09:24 Requires antibiot ic coverage for dental procedur e Active 2024 Almita Villalobos PA-C [address], [place], [address] , [facility] 5 15:06:44 Insomnia disorder related to another mental disorder 77977082 Active 2024 Almita Villalobos PA-C [address], [place], [address] , [facility] 5 11:02:49 Pain in right arm 732626347 [facility] 16:34[facility]11 Mixed hyperlip idemia 100089117 Active 2024 Almita Villalobos PA-C [address], [place], [address] , [facility] 5 10:33:20 Problem Notes None recorded. Procedures Surgical History Date Name Laterality Status Provider Name and Address Organization Details Recorded Time 10/08/19 25 Colonoscopy completed Susannah Rosales [facility] 10/08/2024 09:51:55 09/10/19 25 Diabetic Foot Exam (Monofilament) completed Almita Villalobos PA-C [address] [facility], [place], [address], [facility] 09/10/2024 16:09:12 06/07/20 23 diabetic retinopathy screening completed Susannah Rosales [facility] 06/27/2023 10:24:05 12/25/19 23 Diabetic Foot Exam (Monofilament) completed Parker Potter [facility] 12/24/2022 10:52:24 10/30/19 23 Advanced Care Planning completed Eva Escalona MA [facility] 10/29/2022 10:02:31 12/31/19 21 Most Recent Mammogram completed Carol Hendrickson [facility] 12/31/2020 10:11:50 09/05/19 21 Six-Item Cognitive Test completed Eva Escalona MA [facility] 09/05/2020 10:13:12 07/22/20 20 Diabetic Foot Exam (Monofilament) completed Lela Yu MA [facility] 07/22/2020 10:08:16 03/18/20 20 Diabetic Foot Exam (Monofilament) completed Donna Cardenas [facility] 03/18/2020 09:30:37 10/25/19 20 Mammogram both breasts completed Marya Roper [facility] 10/26/2019 14:23:04 07/05/20 19 injection of joint of foot completed Susannah Phan [facility] 07/09/2019 10:21:02 08/15/19 18 Biopsy skin lesion completed Akua whitaker MA [facility] 11/29/2017 10:52:49 11/05/19 16 Joint Replacement completed Eva Escalona MA [facility] 06/11/2016 11:07:17 05/16/20 15 Date of Last Colonoscopy completed Shikha Hamm MA [facility] 08/03/2018 11:18:54 05/16/20 15 Colonoscopy completed Shikha Hamm MA [facility] 01/26/2017 12:52:21 12/20/19 15 Date of Last Pap Smear completed Eva Escalona MA [facility] 01/01/2015 14:35:25 01/28/20 07 Most Recent Bone Density completed Shikha Hamm MA [facility] 08/03/2018 11:18:29 01/13/19 86 Hysterectomy completed Eva Escalona MA [facility] 01/01/2015 14:35:53 01/13/19 86 Hysterectomy completed Eva Escalona MA [facility] 09/05/2020 09:59:09 09/15/18 83 Caesarean Section completed Eva Escalona MA [facility] 01/01/2015 14:35:53 09/15/18 83 Caesarean Section completed Eva Escalona MA [facility] 09/05/2020 09:59:09 09/15/18 79 Caesarean Section completed Eva Escalona MA [facility] 01/01/2015 14:35:53 Imaging Results None recorded. Procedure Notes None recorded. Medical Equipment None Reported. Allergies Allergen ID Allergen Name Allergen Category Reaction Reaction Severity Criticality Documentation Date Start Date Code Code System Note Provider Name and Address Organization Details Recorded Time 74156 Augmentin medicatio n diarrhea vomiting Not available Not available Not available 11/30/20172017 08814 2 RxNorm but can anton ate amox ac denta lwork Jonas Villalobos PA-C [address] [address], [facility] 5 14:29:59 46583 lisinopri l medicatio n cough Not available Not available 03/14/2018 54266 RxNorm [address]ia guadalupenaomie michelle, [facility] 8 13:49:55 693 codeine medicatio n irregular heart rate moderate Not available 02/26/2014 2670 RxNorm LIN Pavon [facility] 5 14:34:57 694 doxycycli ne monohydra te medicatio n vomiting moderate Not available 02/26/2014 09178 2 RxNorm LIN Pavon [facility] 5 14:34:57 695 latex environme nt,medica tion hives moderate Not available 02/26/2014 70664 91 RxNorm LIN Pavon [facility] 5 14:34:57 696 Shellfish (substanc e) food,medi cation hives severe Not available 02/26/2014 58967 9006 SNOMED LIN Pavon, [facility] 5 14:34:57 Medications Name Sig [...] PARSONS ON/ADDEN DUM;THIS ORDER DISCONTI NUED PER MEDI-SPA N. Not Available Not Available Not Available Fluticaso ne Propionat e (Inhal) 50 mcg/BLIST inhl powd DAILY 2011 active RECORDED 12/29/19 14 1:26PM BY EVA ESCALONA, OFFICE VISIT; Not Available Not Available Not Available amoxicill in 875 mg tablet TWO TIMES DAILY 11/02 completed RECORDED 11/06/19 10 8:33AM BY DEMETRIUS RICE, PAGlenis, MEDICATI ON AUTO-LYNN CTIVATIO N; Not Available [...] 06/10/20 11 3:09PM BY DEWEY RODRIGEZ, ANNOTATI ON/ADDEN DUM; Not Available Not Available Not Available nystatin 100,000 unit/gram topical cream APPLY TO THE AFFECTED AREA(S) BY TOPICAL ROUTE 2 TIMES PER DAY 09/09 completed Not Available Not Available Not Available lansopraz ole 30 mg capsule,d elayed release QD 12/22 completed RECORDED 12/23/19 13 1:55PM BY LUZ MARIA Massey MD, ANNOTATI ON/ADDEN DUM; Not Available Not Available [...] day by oral route for 30 days. 01/26 /2022 completed Not Available Not Available Not Available [...] 08/15 completed RECORDED 09/18/19 09 12:59PM BY ALEXANDER ALCOCER MD, MEDICATI ON AUTO-LYNN CTIVATIO N; Not Available Not Available Not Available gabapenti n 1 po QHS 12/24 completed imsomnia and nerve pain Not Available Not Available Not Available blood pressure monitor DAILY MONITORI NG OF BP FOR HTN 06/10 completed RECORDED 06/10/20 11 3:09PM BY DEWEY RODRIGEZ, ANNOTATI ON/SHELLEYRADHA DUM; Not Available Not Available Not Available Meclizine Hcl Chewable QD 12/22 completed RECORDED 12/23/19 13 1:23PM BY EVA ESCALONA, OFFICE VISIT; Not Available Not Available Not Available FreeStyle Lite Meter kit USE TO TEST BLOOD SUGAR EVERY DAY 11/18 completed Not Available Not Available Not Available Veramyst 27.5 mcg/actua tion nasal spray,ching pension DAILY 08/10 completed RECORDED 08/13/20 08 1:41PM BY ALEXANDER ALCOCER MD, MEDICATI ON AUTO-LYNN CTIVATIO N; [...] Updated DateTime 5 160.02 cm 37.8 kg/m2 12208.3 3 g 70 /min 97 % 97.9 [degF] 122/64 mm[Hg] Aminta Thomas [facility] 5 10:26:53 Social History Question Answer Notes LastModified by Organizat ion Details LastModified Time Tobacco Smoking Status Former Smoker social smoker LIN Botello, [facility] 11/29/2017 10:52:27 Do You Have An Advance Directive? No [email or web address] Information not available 07/27/2022 Animal Exposure? Yes [email or web address] Informat ion not available 07/27/2022 Is Blood Transfusion Acceptable In An Emergency? Yes [email or web address] Information not available 01/01/2015 What Is Your Level Of Caffeine Consumption? Moderate 1 Cup Of Coffee Daily Information not available 11/29/2017 How Much Tobacco Do You Chew? None Information not available 11/29/2017 What Type Of Diet Are You Following? REGULAR [email or web address] Information not available 05/30/2014 Which Illicit Or Recreational Drugs Have You Used? None Information not available 11/29/2017 Education 2 Year College [email or web address] Information not available 07/27/2022 Have There Been Any Changes To Your Family Or Social Situation? No [email or web address] Information not available 07/27/2022 When Did You Quit Smoking? 16+yearssinc elastcigaret te [email or web address] Information not available 09/09/2021 Are There Any Guns Present In Your Home? No [email or web address] Information not available 07/27/2022 Legally Blind In One Or Both Eyes? No [email or web address] Information not available 07/27/2022 Live Alone Or With Others? With Others (Dave) And 1 Dog [email or web address] Information not available 06/08/2024 Do You Take Precautions To Prevent Distracted Driving? Yes [email or web address] Information not available 06/11/2016 How Often Do You Need To Have Someone Help You When You Read Instructions, Pamphlets, Or Other Written Material From Your Doctor Or Pharmacy? Never [email or web address] Information not available 01/26/2017 Have You Served In The ? No Information not available 06/11/2016 Have You Or Anyone In Your Household Had Any Of The Following Symptoms In The Last 14 Days: Sore Throat, Cough, Chills, Body Aches For Unknown Reasons, Shortness Of Breath For Unknown Reasons, Loss Of Smell, Loss Of Taste, Fever At Or Greater Than 100 Degrees Fahrenheit? No [email or web address] Information not available 09/05/2020 Are You Or Anyone In Your Household A Health Care Provider Or Emergency Responder? No Information not available 08/26/2020 To The Best Of Your Knowledge Have You Been In Close Proximity To Any Individual Who Tested Positive For COVID-19? No [email or web address] Information not available 09/05/2020 *AWV ONLY* Are You Presently Prescribed Opioid Medication By PCP Or Specialist? If YES -Provider Assess The Benefit For Other, Non-opioid Pain Therapies Instead, Even If The Patient Does Not Have OUD But Is Possibly At Risk. No [email or web address] Information not available 09/09/2021 Have You Recently Traveled To A COVID-19 High Risk Area Or Gathering In The Last 10 Days? No Information not available 08/26/2020 What Was The Date Of Your Most Recent Tobacco Screening? 06/20/2025 [email or web address] Information not available 06/20/2025 Total Number Of Stairs In Home 2 Information not available 07/27/2022 How Many Children Do You Have? 2 Silvia Information not available 11/29/2017 What Is Your Current Pack Years? 10packyears [email or web address] Information not available 07/27/2022 Do You Use Protection During Sex? No Information not available 11/29/2017 Difficulty Reading? No Information not available 07/27/2022 What Is Your Relationship Status? [email or web address] Information not available 07/27/2022 Do You Use Your Seat Belt Or Car Seat Routinely? Yes [email or web address] Information not available 09/09/2021 Seat Belts Used Routinely Yes [email or web address] Information not available 07/27/2022 Are You Sexually Active? No Information not available 09/09/2021 Smoke Alarm In Home Yes [email or web address] Information not available 07/27/2022 Do You Have Smoke And Carbon Monoxide Detectors In Your Home? No [email or web address] Information not available 09/09/2021 At What Age Did You Start Smoking Tobacco? 18 Quit At 26 Information not available 11/29/2017 Are You Passively Exposed To Smoke? No Information not available 11/29/2017 Do You Use Sunscreen Routinely? Yes [email or web address] Information not available 05/30/2014 How Many Years Have You Smoked Tobacco? 8 Information not available 11/29/2017 Do You Have Difficulty Walking Or Climbing Stairs? Yes Information not available 07/27/2022 Sex: Unknown Functional Status Question Answer Note LastModified by Organizat ion Details LastModified Time Do you use any illicit or recreational drugs? No [email or web address] Information not available 07/27/2022 What is your level of alcohol consumption? Occasional [email or web address] Information not available 05/30/2014 Do you or have you ever used smokeless tobacco? Never used smokeless tobacco Information not available 08/20/2019 Are you currently employed? Yes [email or web address] Information not available 05/30/2014 Difficulty driving at night? No [email or web address] Information no t available 07/27/2022 Are you able to walk independently without assistance or assistive devices? YESWOREST [email or web address] Information not available 07/27/2022 Are you able to care for yourself independently? Yes [email or web address] Information not available 05/30/2014 What is your occupation? Retired [email or web address] Information not available 09/09/2021 Do you have difficulty dressing, bathing, grooming, or toileting? No [email or web address] Information not available 07/27/2022 Do you or have you ever used e-cigarettes or vape? Never used electronic cigarettes Information not available 07/27/2022 What is your exercise level? [facility] Information not available 09/09/2021 Mental Status Question Answer Note LastModified by Organization D etails LastModified Time Do you have difficulty concentrating, remembering or making decisions? No [email or web address] Information no t available 07/27/2022 Family History Relationship Description Onset Age of this Age Resolved Age Notes LastModified by Organization Details LastModified Time Mother Osteoporosis [email or web address] Not laila ilable 09/05/2020 09:58:45 Mother Disorder of thyroid gland [email or web address] Not available 09/05 09:58:45 Mother Harmful pattern of use of alcohol [email or web address] Not available 09/05 09:58:45 Mother Depressive disorder [email or web address] Not available 09/05 09:58:45 Mother Hypertensive disorder [email or web address] Not available 09/05 09:58:45 Mother Chronic obstructive pulmonary disease 76 [email or web address] Not available 09/05 09:58:45 Mother Anxiety disorder Not available 09/05 09:58:45 Father Heart disease [email or web address] Not available 09/05 09:58:45 Father Chronic obstructive pulmonary disease 76 [email or web address] Not available 2021 09:10:17 Father Arthritis [email or web address] Not availa ble 09/05/2020 09:58:45 Father Blood coagulation disorder [email or web address] Not available 09/05 09:58:45 Father Hypertensive disorder [email or web address] Not available 09/05 09:58:45 Medical History Condition Response Other N Gout N Kidney Stones N Blood Diseases N Hyperthyroidism N Breast Cancer N Depression N COPD N Lung Disease N Hypothyroidism N Defects or Inherited Disease N Anesthesia Complications N Headaches/Migraines N Varicose Veins N Anxiety Disorder Y Obesity N Vision or Eye Problems N Arthritis Y Head Injury/Concussion N Polyps N Infertility N Congenital Anomalies N Acid Reflux (GERD) [...] Recorded Time Tdap 8 completed Not Available [facility] 06/29/2022 04:47:12 Influenza, split virus, trivalent, preservative 1 completed Not Available [facility] 06/29/2022 04:47:11 Influenza, split virus, trivalent, preservative 1 completed Not Available [facility] 06/29/2022 04:47:12 Influenza, split virus, trivalent, preservative 2 completed Not Available [facility] 06/29/2022 04:47:12 Influenza, split virus, trivalent, preservative 3 completed Not Available [facility] 06/29/2022 04:47:12 Influenza, split virus, quadrivalent, preservative 9 completed Not Available [facility] 06/29/2022 04:47:12 COVID-19, mRNA, LNP-S, PF, 100 mcg/0.5mL dose or 50 mcg/0.25mL dose 1 completed Not Available [facility] 06/29/2022 04:47:12 COVID-19, mRNA, LNP-S, PF, 100 mcg/0.5mL dose or 50 mcg/0.25mL dose 1 completed Not Available [facility] 06/29/2022 04:47:12 COVID-19, mRNA, LNP-S, PF, 100 mcg/0.5mL dose or 50 mcg/0.25mL dose 1 completed Not Available [facility] 06/29/2022 04:47:12 Influenza, split virus, trivalent, preservative 2 completed Not Available [facility] 06/29/2022 04:47:12 Influenza, split virus, trivalent, preservative 3 completed Not Available [facility] 06/29/2022 04:47:11 Influenza, split virus, quadrivalent, preservative 6 completed Not Available [facility] 06/29/2022 04:47:12 Influenza, MDCK, quadrivalent, PF 8 completed Not Available [facility] 06/29/2022 04:47:12 Influenza, split virus, trivalent, PF 0 completed Not Available [facility] 06/29/2022 04:47:12 Influenza, split virus, trivalent, preservative 4 completed Not Available [facility] 06/29/2022 04:47:12 Influenza, high-dose, quadrivalent, PF 1 completed Not Available [facility] 06/29/2022 04:47:12 Influenza, split virus, quadrivalent, PF 7 completed Not Available [facility] 06/29/2022 04:47:12 Influenza, high-dose, quadrivalent, PF 2 completed Not Available [facility] 06/29/2022 04:47:12 COVID-19, mRNA, LNP-S, bivalent, PF, 50 mcg/0.5 mL or 25mcg/0.25 mL dose 2 completed Not Available [facility] 06/29/2022 04:47:11 Influenza, split virus, quadrivalent, PF 5 completed LIN Botello [facility] 07/27/2022 10:45:49 pneumococcal polysaccharide PPV23 1 completed LIN Botello, [facility] 07/27/2022 10:45:49 Td (adult), 2 Lf tetanus toxoid, preservative free, adsorbed 8 completed LIN Botello, [facility] 07/27/2022 10:45:49 Influenza, adjuvanted, trivalent, PF 4 completed LIN Jj [facility] 06/08/2024 10:59:15 Pneumococcal conjugate PCV20, polysaccharide [id number] conjugate, adjuvant, PF 4 completed LIN Botello, [facility] 07/25/2024 13:27:35 Influenza, adjuvanted, trivalent, PF 5 completed Not Available [facility] 07/16/2025 10:10:52 Influenza, high-dose, quadrivalent, PF 3 completed Almita Villalobos PA-C [address] [address], [place], [address], [facility] 05/18/2023 11:07:50 Past Encounters Encounter ID Performer Location Encounter Start Date Encounter Closed Date Diagnosis/Indication Diagnosis SNOMED-CT Code Diagnosis ICD10 Code Diagnosis IMO Codes Diagnosis Note [id number] Alexander Vallecillo MD Main Office [address] [address] 06/20/2025 15:26:46 06/20/2025 16:36:29 Pain in right arm 433784704 M79.601 655467 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 She has been getting some help from increased dose of gabapentin . 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 Chronic ki dney disease stage 1 114498699 N18.1 Continue losartan 100 mg. Hypertensi ve renal disease 91980559 I12.9 stable on current meds. continue medicaton and low sodium diet. Recom weekly blood pressure home monitoring . repeat bmp. Mixed hyperlipidemia 267 548090 E78.2 17754 Mild mixed hyperlipid emia . pt was switched to rosuvastat in 20 mg. Recommend to retest lipids. Health Concerns Section Related Observation LastModified by Organization Detai ls LastModified Time None Recorded Concern Status LastModified by Organization Details LastModified Time None Recorded Payers Encounter Date Sequence Insurance Name Policy Number Policy Munson Covered Member ID Munson Member ID Guarantor Name 07/16/2025 1 [facility] [place]MO BLUE (MEDICARE REPLACEMENT HMO) [id number] Kanchan Joiner [id number] Kanchan Joiner Notes Date Note Type Note Provider Name and Address Organization Details Recorded Time 07/16/2025 text/html Hypertension F/UReported by PatientHPIFor associated [...] medications, andno side effects from medications(eye doctor: [facility] get eye exam note,checks feet [...] stable. ROS as noted in the HPI Almita Ariel BORREGO [address] [address], [place], [address], [facility] 07/16/2025 10:54:56 OBGyn Episode No OBEpisode recorded.
--- OUTSIDE RECORDS SUMMARY | 2025-07-29 19:58 | XMS_ITS | Continuity of Care Document ---
Author Organization [facility], Main Office Address [address] [facility] [address] [place] [address] Care Team Providers Care Wrap Yarn Sorter Name Role Phone PEPPER BOCANEGRA Orthopedic Surgeon GUTIERREZ EDOUARD Cone Machine Feeder AIDAN MONK Certified First Assistant [facility] Orthopedic Surgeon [facility] Sports Medic ine [facility] Bass Viol Repairer LORENZO BOYKIN Urologist ALMITA VILLALOBOS Primary Care Provider Assessment No assessment recorded. Plan of Treatment Reminders Order Date Submit Date Provider Last Modified By Organization Details Last Modified Time Details Appointments [id number] 2025 10:00A Genesis Villalobos PA-C Not available Not available Not available Lab None record ed. Referral neurol ogist referr liliana Arora t with RT arm pain/n umbnes s in 2022, resolv ed and now back again since r 2024. 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 [email or web address] [place] [address] (Imaging), [address] [place] [address], [place], [address], 06/21/2025 16:22:01 Surgeries None record ed. Imaging None record ed. Medication Orders None record ed. Patient TargetsNo targets recorded. Patient InstructionsNo instructions recorded. Reason for Referral Neurologist Referral for Isidra n in right arm Patient with RT arm pain/numbness in 2022, resolved and now back again since May 2025. Referring Physician: Alexander Vallecillo, Family Medicine, Encounter Date: 06/20/2025 Problems Name Problem SNOMED Code Status Onset Date Resolution Date Notes Provider Name and Address Organization Details Recorded Time Dysuria 77065043 Completed 08/02/2017 RAJESH Zarate [address] [facility] [address], [place], [address] , [facility] 4 13:42:37 Depressi ve disorder 44369806 Completed 08/02/[address] [facility] 7 14:57:07 Fatigue 11493756 Completed 01/26/[address] [facility] 7 12:48:11 Vertigo 750224644 Completed 08/02/[address] [facility] 7 14:57:16 Arthropa thy of knee joint 289955542 Completed 08/02/[address] [facility] 7 14:56:45 Pneumoni a 108208103 Completed 08/02/[address] [facility] 7 14:38:57 Administ ration of bacteria l and viral vaccine Completed 200702/26/2014 RECORDED 04/22/20 08 11:02AM BY AKUA BAILEY MA, OFFICE VISIT Almita Villalobos PA-C [address] [facility] [address], [place], [address] , [facility] 6 14:10:13 Pain of hip region 10985626 Completed 200702/26/2014 IMPRESSI ON: LEFT HIP PAIN WITH KNOWN ARTHRITI S, WILL CHECK XRAY AND REFER TO ORTHO, NEW PROBLEM, KNOWN OA, TREAT WITH MOTRIN, WATER EXERCISE S; RECORDED 04/22/20 08 10:35AM BY CLARE CONTRERAS, KRISHNA ON/ADDEN DUM [facility] [address], [place], [address] , [facility] 6 14:10:12 Administ ration of bacteria l and viral vaccine Completed 200703/21/2014 RECORDED 04/22/20 08 11:02AM BY AKUA BAILEY MA, OFFICE VISIT Almita QUESADAC [address], [place], [address] , [facility] 6 14:10:13 Pain of hip region 22407892 Completed 200703/21/2014 IMPRESSI ON: LEFT HIP PAIN WITH KNOWN ARTHRITI S, WILL CHECK XRAY AND REFER TO ORTHO, NEW PROBLEM, KNOWN OA, TREAT WITH MOTRIN, WATER EXERCISE S; RECORDED 04/22/20 08 10:35AM BY CLARE CONTRERAS, KRISHNA ON/ADDEN DUM Almita Villalobos PA-C [address], [place], [address] , [facility] 6 14:10:12 Administ ration of bacteria l and viral vaccine Completed 200703/22/2014 RECORDED 04/22/20 08 11:02AM BY AKUA BAILEY MA, OFFICE VISIT Almita Villalobos PA-C [address] [facility] [address], [place], [address] , [facility] 6 14:10:13 Pain of hip region 18835138 Completed 200703/22/2014 IMPRESSI ON: LEFT HIP PAIN WITH KNOWN ARTHRITI S, WILL CHECK XRAY AND REFER TO ORTHO, NEW PROBLEM, KNOWN OA, TREAT WITH MOTRIN, WATER EXERCISE S; RECORDED 04/22/20 08 10:35AM BY KRISHNA HUGGINS ON/ADDEN DUM Almita Ariel PA-C [address], [place], [address] , [facility] 6 14:10:12 Screenin g for malignan t neoplasm of colon Completed 200702/26/2014 RECORDED 07/31/20 08 11:15AM BY AKUA BAILEY MA, SUZETTEATI ON/ADDEN DUM Almita Ariel PA-C [address], [place], [address] , [facility] 6 14:10:13 Screenin g for malignan t neoplasm of colon Completed 200703/21/2014 RECORDED 07/31/20 08 11:15AM BY AKUA BAILEY MA, KRISHNA ON/ADDEN DUM Almita Ariel FLETCHER-C [address], [place], [address] , [facility] 6 14:10:13 Screenin g for malignan t neoplasm of colon Completed 200703/22/2014 RECORDED 07/31/20 08 11:15AM BY AKUA BAILEY MA, KRISHNA ON/ADDEN DUM Almita Ariel FLETCHER-C [address], [place], [address] , [facility] 6 14:10:13 Cough 94694209 Completed 200802/26/2014 RECORDED 09/18/19 09 1:00PM BY KRISHNA LEES ON/ADDEN DUM Almita Ariel PA-C [address], [place], [address] , [facility] 6 14:10:12 Cough 61747774 Completed 200803/21/2014 RECORDED 09/18/19 09 1:00PM BY KRISHNA LEES ON/ADDEN DUM Almita Villalobos PA-C [address], [place], [address] , [facility] 6 14:10:12 Cough 28588402 Completed 200803/22/2014 RECORDED 09/18/19 09 1:00PM BY KRISHNA LEES ON/ADDEN DUM Almita Villalobos PA-C [address], [place], [address] , [facility] 6 14:10:12 Acute sinusiti s 86299057 Completed 200902/26/2014 RECORDED 06/19/20 10 9:07AM BY KRISHNA ROSAS ON/ADDEN DUM Almita Villalobos PA-C [address], [place], [address] , [facility] 6 14:10:12 Chronic nonalcoh olic liver disease 56769630 Completed 200902/26/2014 IMPRESSI ON: CHECK LFT'S; RECORDED 06/19/20 10 9:06AM BY KRISHNA ROSAS ON/ADDEN DUM [facility] 12:48:10 Acute sinusiti s 55071542 Completed 200903/21/2014 RECORDED 06/19/20 10 9:07AM BY KRISHNA ROSAS ON/ADDEN DUM Almita Villalobos PA-C [address], [place], [address] , [facility] 6 14:10:12 Acute sinusiti s 09911276 Completed 200903/22/2014 RECORDED 06/19/20 10 9:07AM BY KRISHNA ROSAS ON/ADDEN DUM Almita Villalobos PA-C [address], [place], [address] , [facility] 6 14:10:12 Abdomina l pain 02424256 Completed 201102/26/2014 RECORDED 06/05/20 12 1:40PM BY KRISHNA PAVON ON/ADDEN DUM Almita Villalobos PA-C [address], [place], [address] , [facility] 6 14:10:12 Left lower quadrant pain 884258294 Completed 201102/26/2014 RECORDED 06/05/20 12 1:40PM BY KRISHNA PAVON ON/ADDEN DUM Almita Villalobos PA-C [address], [place], [address] , [facility] 6 14:10:13 Allergic rhinitis 30445257 Completed 201102/26/2014 IMPRESSI ON: CONTINUE NASAL SPRAY; RECORDED 06/05/20 12 1:40PM BY KRISHNA PAVON ON/ADDEN DUM Almita Villalobos PA-C [address], [place], [address] , [facility] 6 14:10:12 Screenin g for malignan t neoplasm of breast Completed 201102/26/2014 RECORDED 06/05/20 12 1:40PM BY KRISHNA PAVON ON/ADDEN DUM Almita Villalobos PA-C [address], [place], [address] , [facility] 6 14:10:13 Screenin g for malignan t neoplasm of cervix Completed 201102/26/2014 RECORDED 06/05/20 12 1:40PM BY KRISHNA PAVON ON/ADDEN DUM Almita Villalobos PA-C [address], [place], [address] , [facility] 6 14:10:13 Malaise and fatigue 906825587 Completed 201102/26/2014 RECORDED 06/05/20 12 1:40PM BY KRISHNA PAVON ON/ADDEN DUM Almita Ariel PA-C [address], [place], [address] , [facility] 6 14:10:12 Right upper quadrant pain 877006135 Completed 201102/26/2014 IMPRESSI ON: R SIDED ABD [...] 12 1:40PM BY KRISHNA PAVON ON/SHELLEYEN DUM Almita Villalobos PA-C [address], [place], [address] , [facility] 6 14:10:13 Abdomina l pain 66915030 Completed 201103/21/2014 RECORDED 06/05/20 12 1:40PM BY KRISHNA PAVON ON/DUC Villalobos PA-C [address] [facility] [address], [place], [address] , [facility] 6 14:10:13 Left lower quadrant pain 486343582 Completed 201103/21/2014 RECORDED 06/05/20 12 1:40PM BY KRISHNA PAVON/DUC Villalobos PA-C [address] [facility] [address], [place], [address] , [facility] 6 14:10:13 Allergic rhinitis 33078070 Completed 201103/21/2014 IMPRESSI ON: CONTINUE NASAL SPRAY; RECORDED 06/05/20 12 1:40PM BY KRISHNA PAVON ON/ADDEN DUM Almita Villalobos PA-C [address] [facility] [address], [place], [address] , [facility] 6 14:10:12 Screenin g for malignan t neoplasm of breast Completed 201103/21/2014 RECORDED 06/05/20 12 1:40PM BY KRISHNA PAVON ON/ADDEN DUM Almita Villalobos PA-C [address] [facility] [address], [place], [address] , [facility] 6 14:10:13 Screenin g for malignan t neoplasm of cervix Completed 201103/21/2014 RECORDED 06/05/20 12 1:40PM BY KRISHNA PAVON ON/ADDEN DUM Almita Villalobos PA-C [address] [facility] [address], [place], [address] , [facility] 6 14:10:13 Malaise and fatigue 498513349 Completed 201103/21/2014 IMPRESSI ON: CONTINUE MEDS, KEEPING MOOD EVEN; RECORDED 06/05/20 12 1:39PM BY KRISHNA PAVON ON/DUC DUM Almita Villalobos PA-C [address] [facility] [address], [place], [address] , [facility] 6 14:10:12 Right upper quadrant pain 131858774 Completed 201103/21/2014 IMPRESSI ON: R SIDED ABD [...] [address], [place], [address] , [facility] 6 14:10:13 Abdomina l pain 20312771 Completed 201103/22/2014 RECORDED 06/05/20 12 1:40PM BY KRISHNA PAVON ON/ADDEN DUM Almita Villalobos PA-C [address], [place], [address] , [facility] 6 14:10:13 Left lower quadrant pain 664052451 Completed 201103/22/2014 RECORDED 06/05/20 12 1:40PM BY KRISHNA PAVON ON/ADDEN DUM Almita Villalobos PA-C [address], [place], [address] , [facility] 6 14:10:13 Allergic rhinitis 87303057 Completed 201103/22/2014 IMPRESSI ON: CONTINUE NASAL SPRAY; RECORDED 06/05/20 12 1:40PM BY KRISHNA PAVON ON/ADDEN DUM Almita Villalobos PA-C [address], [place], [address] , [facility] 6 14:10:12 Screenin g for malignan t neoplasm of breast Completed 201103/22/2014 RECORDED 06/05/20 12 1:40PM BY KRISHNA PAVON ON/ADDEN DUM Almita Villalobos PA-C [address], [place], [address] , [facility] 6 14:10:13 Screenin g for malignan t neoplasm of cervix Completed 201103/22/2014 RECORDED 06/05/20 12 1:40PM BY KRISHNA PAVON ON/ADDEN DUM Almita Villalobos PA-C [address], [place], [address] , [facility] 6 14:10:13 Malaise and fatigue 258580419 Completed 201103/22/2014 IMPRESSI ON: CONTINUE MEDS, KEEPING MOOD EVEN; RECORDED 06/05/20 12 1:39PM BY KRISHNA PAVON ON/DUC QUESADAC [address] [facility] [address], [place], [address] , [facility] 6 14:10:12 Right upper quadrant pain 284108704 Completed 201103/22/2014 IMPRESSI ON: R SIDED ABD [...] 12 1:40PM BY KRISHNA PAVON ON/DUC QUESADAC [address] [facility] [address], [place], [address] , [facility] 6 14:10:13 Acne [id number] Completed 201102/26/2014 IMPRESSI ON: IS OFF DOXYCYCL INE, MAY HAVE BEEN RELATED TO THER VERTIGO, NO HEADACHE OR OTHER NEUROLOG ICAL ISSUES; RECORDED 08/14/20 12 9:35AM BY MUSA VILLALOBOS MA, ANNOTATI ON/DUC QUESADAC [address] [facility] [address], [place], [address] , [facility] 6 14:10:12 Follow-u p encounte r Completed 201102/26/2014 RECORDED 08/14/20 12 9:35AM BY MUSA VILLALOBOS MA, KRISHNA ON/ADDEN DUM Almita Ariel PA-C [address], [place], [address] , [facility] 6 14:10:13 Family history of Cardiova scular disease [id number] Completed 201102/26/2014 IMPRESSI ON: OT WITH NEG US OF ABDOMEN THIS MONTH AND HAD CT OF ABDOMEN 03/24 THAT SHOWED A NL AORTA, NO ANEURYSM , NO FURTHER WORKUP NEEDED.; RECORDED 08/14/20 12 9:35AM BY MUSA VILLALOBOS MA, KRISHNA ON/ADDEN DUM Almita Villalobos PA-C [address], [place], [address] , [facility] 6 14:10:13 Fibromyo sitis 07883462 Completed 201102/26/2014 RECORDED 08/14/20 12 9:35AM BY MUSA VILLALOBOS MA, KRISHNA ON/ADDEN DUM Almita Ariel PA-C [address], [place], [address] , [facility] 6 14:10:12 Dizzines s and giddines s 203691154 Completed 201102/26/2014 IMPRESSI ON: HAD IN THE PAST IMPROVIN G, NOTE FOR WORK WRITTEN, USE MECLIZIN E NEEDED. IF NOT IMPROVIN G PT TO SET UP APPT WITH ENT AND MAY NEED REHAB.; RECORDED 08/14/20 12 9:35AM BY MUSA VILLALOBOS MA, KRISHNA ON/ADDEN DUM Almita Ariel PA-C [address], [place], [address] , [facility] 6 14:10:12 Herpes zoster 3716708 Completed 201102/26/2014 RECORDED 08/14/20 12 9:35AM BY MUSA VILLALOBOS MA, KRISHNA ON/ADDEN DUM Almita Ariel PA-C [address], [place], [address] , [facility] 6 14:10:12 Acne [id number] Completed 201103/21/2014 IMPRESSI ON: IS OFF DOXYCYCL INE, MAY HAVE BEEN RELATED TO THER VERTIGO, NO HEADACHE OR OTHER NEUROLOG ICAL ISSUES; RECORDED 08/14/20 12 9:35AM BY MUSA VILLALOBOS MA, KRISHNA ON/ADDEN DUM Almita FLETCHER-C [address], [place], [address] , [facility] 6 14:10:12 Follow-u p encounte r Completed 201103/21/2014 RECORDED 08/14/20 12 9:35AM BY MUSA VILLALOBOS MA, KRISHNA ON/ADDEN DUM Almita FLETCHER-C [address], [place], [address] , [facility] 6 14:10:13 Family history of Cardiova scular disease [id number] Completed 201103/21/2014 IMPRESSI ON: OT WITH NEG US OF ABDOMEN THIS MONTH AND HAD CT OF ABDOMEN 03/24 THAT SHOWED A NL AORTA, NO ANEURYSM , NO FURTHER WORKUP NEEDED.; RECORDED 08/14/20 12 9:35AM BY MUSA VILLALOBOS MA, KRISHNA ON/ADDEN DUM Almita FLETCHER-C [address], [place], [address] , [facility] 6 14:10:13 Fibromyo sitis 56256204 Completed 201103/21/2014 RECORDED 08/14/20 12 9:35AM BY MUSA VILLALOBOS MA, KRISHNA ON/ADDEN DUM Almita FLETCHER-C [address], [place], [address] , [facility] 6 14:10:12 Dizzines s and giddines s 996186181 Completed 201103/21/2014 IMPRESSI ON: HAD IN THE PAST IMPROVIN G, NOTE FOR WORK WRITTEN, USE MECLIZIN E NEEDED. IF NOT IMPROVIN G PT TO SET UP APPT WITH ENT AND MAY NEED REHAB.; RECORDED 08/14/20 12 9:35AM BY MUSA VILLALOBOS MA, KRISHNA ON/ADDEN DUM Almita Villalobos PA-C [address], [place], [address] , [facility] 6 14:10:12 Herpes zoster 2870465 Completed 201103/21/2014 RECORDED 08/14/20 12 9:35AM BY MUSA VILLALOBOS MA, KRISHNA ON/ADDEN DUM Almita Villalobos PA-C [address], [place], [address] , [facility] 6 14:10:12 Acne [id number] Completed 201103/22/2014 IMPRESSI ON: IS OFF DOXYCYCL INE, MAY HAVE BEEN RELATED TO THER VERTIGO, NO HEADACHE OR OTHER NEUROLOG ICAL ISSUES; RECORDED 08/14/20 12 9:35AM BY MUSA VILLALOBOS MA, KRISHNA ON/ADDEN DUM Almita Villalobos PA-C [address], [place], [address] , [facility] 6 14:10:12 Follow-u p encounte r Completed 201103/22/2014 RECORDED 08/14/20 12 9:35AM BY MUSA VILLALOBOS MA, ANNOTATI ON/ADDEN DUM Almita Villalobos PA-C [address], [place], [address] , [facility] 6 14:10:13 Family history of Cardiova scular disease [id number] Completed 201103/22/2014 IMPRESSI ON: OT WITH NEG US OF ABDOMEN THIS MONTH AND HAD CT OF ABDOMEN 03/24 THAT SHOWED A NL AORTA, NO ANEURYSM , NO FURTHER WORKUP NEEDED.; RECORDED 08/14/20 12 9:35AM BY MUSA VILLALOBOS MA, KRISHNA ON/ADDEN DUM Almita Villalobos PA-C [address], [place], [address] , [facility] 6 14:10:13 Fibromyo sitis 89110441 Completed 201103/22/2014 RECORDED 08/14/20 12 9:35AM BY MUSA VILLALOBOS MA, KRISHNA ON/ADDEN DUM Almitaaudelia QUESADAC [address] [facility] [address], [place], [address] , [facility] 6 14:10:12 Dizzines s and giddines s [id number] Completed 201103/22/2014 IMPRESSI ON: HAD IN THE PAST IMPROVIN G, NOTE FOR WORK WRITTEN, USE MECLIZIN E NEEDED. IF NOT IMPROVIN G PT TO SET UP APPT WITH ENT AND MAY NEED REHAB.; RECORDED 08/14/20 12 9:35AM BY MUSA VILLALOBOS MA, KRISHNA ON/ADDEN DUM Almita QUESADAC [address], [place], [address] , [facility] 6 14:10:12 Herpes zoster 5695274 Completed 201103/22/2014 RECORDED 08/14/20 12 9:35AM BY MUSA VILLALOBOS MA, KRISHNA ON/ADDEN DUM Almita Villalobos PA-C [address] [facility] [address], [place], [address] , [facility] 6 14:10:12 Blood chemistr y outside referenc e range 169204141 Completed 201202/26/2014 RECORDED 09/16/19 13 1:53AM BY KRISHNA PAVON ON/ADDEN DUM [facility] 12:47:40 Essentia l hyperten cata 80103147 Completed 201202/26/2014 RECORDED 09/16/19 13 1:54AM BY KRISHNA PAVON ON/ADDEN DUM [facility] 0 10:07:52 Essentia l hyperten cata 90603818 Completed 201203/21/2014 RECORDED 09/16/19 13 1:54AM BY KRISHNA PAVON ON/ADDEN DUM Shanita Louis null, [facility] 0 10:07:52 Essentia l hyperten cata 99298378 Completed 201203/22/2014 RECORDED 09/16/19 13 1:54AM BY KRISHNA PAVON ON/ADDEN DUM Shanita Louis null, [facility] 0 10:07:52 Tobacco user [id number] Completed 201202/26/2014 RECORDED 06/08/20 13 1:11PM BY KRISHNA SHAFFER ON/ADDEN DUM LIN Ling, [facility] 8 10:43:17 History of clinical finding in subject [id number] Completed 201201/26/2017 Shikha martinez, [facility] 7 12:48:01 Adult health examinat ion Completed 201202/26/2014 IMPRESSI ON: MAMMOGRA M, PAP SMEAR AND COLONOSC OPY UTD, IS TRYING TO HELP WITH WEIGHT LOSS; RECORDED 06/08/20 13 1:11PM BY KRISHNA SHAFFER ON/ADDEN DUM Shikha martinez, [facility] 7 12:47:45 Glucose level outside referenc e range 306256922 Completed 201202/26/2014 IMPRESSI ON: RECHECK FASTING AND A1C; RECORDED 06/08/20 13 1:11PM BY KRISHNA SHAFFER ON/ADDEN DUM Luz Maria martinez, [facility] 9 16:04:41 Knee pain Completed 201202/26/2014 IMPRESSI ON: WILL BE GETTING INJECTIO NS; RECORDED 06/08/20 13 1:11PM BY MARI SCHULTZK I, ANNOTATI ON/ADDEN DUM Almita Villalobos PA-C [address], [place], [address] , [facility] 6 14:10:12 Laborato ry procedur e performe d 637244275 Completed 201202/26/2014 RECORDED 06/08/20 13 1:11PM BY MARI GONZALES I ANNOTATI ON/ADDEN DUM Almita Villalobos PA-C [address], [place], [address] , [facility] 6 14:10:13 Tobacco user [id number] Completed 201203/21/2014 RECORDED 06/08/20 13 1:11PM BY MARI GONZALES I ANNOTATI ON/ADDEN DUM Akua LIN Ríos, [facility] 8 10:43:17 Knee pain Completed 201203/21/2014 IMPRESSI ON: WILL BE GETTING INJECTIO NS; RECORDED 06/08/20 13 1:11PM BY SUZETTE SHAFFERATI ON/ADDEN DUM Almita Villalobos PA-C [address] [facility] [address], [place], [address] , [facility] 6 14:10:12 Laborato ry procedur e performe d [id number] Completed 201203/21/2014 RECORDED 06/08/20 13 1:11PM BY SUZETTE SHAFFERATI ON/ADDEN DUM Almita Villalobos PA-C [address], [place], [address] , [facility] 6 14:10:13 Tobacco user [id number] Completed 201203/22/2014 RECORDED 06/08/20 13 1:11PM BY KRISHNA SHAFFER ON/ADDEN DUM Akua LIN Ríos, [facility] 8 10:43:17 Knee pain Completed 201203/22/2014 IMPRESSI ON: WILL BE GETTING INJECTIO NS; RECORDED 06/08/20 13 1:11PM BY KRISHNA SHAFFER ON/ADDEN DUM Almita Villalobos PA-C [address], [place], [address] , [facility] 6 14:10:12 Laborato ry procedur e performe d [id number] Completed 201203/22/2014 RECORDED 06/08/20 13 1:11PM BY KRISHNA SHAFFER ON/ADDEN DUM Almita Villalobos PA-C [address], [place], [address] , [facility] 6 14:10:13 Adult health examinat ion Completed 201301/26/2017 IMPRESSI ON: PAP, MAMMO AND COLONOSC OPY UTD, PT NEEDS TO WORK ON WEIGHT LOSS.; RECORDED 12/29/19 14 1:57PM BY LUZ MARIA Massey MD, OFFICE VISIT Shikha martinez [facility] 7 12:47:45 Glucose level outside referenc e range 634614181 Completed 201303/14/[address] [facility] 9 16:04:41 Blood chemistr y outside referenc e range 658247010 Completed 201301/26/[address] [facility] 7 12:47:40 Arthropa thy 649102046 Completed 201308/02/[address] [facility] 7 14:57:11 Enthesop athy of hip region 30633531 Completed 201308/02/[address] [facility] 7 14:57:04 Divertic ulitis of colon 667175670 Completed 201309/10/2024 Almita Villalobos PA-C [address], [place], [address] , [facility] 5 11:27:56 Gastroes ophageal reflux disease 051595460 Active 2013 Not Available [facility] 2 04:47:11 Chronic nonalcoh olic liver disease 38055453 Active 2013 Not Available [facility] 2 04:47:11 Pure hypercho lesterol emia 876755783 Completed 201308/02/[address] [facility] 7 14:56:42 Insomnia 509073113 Active 2013 Not Available [facility] 2 04:47:11 Irritabl e bowel syndrome 48364180 Active 2013 Not Available [facility] 2 04:47:11 Disease of liver 257352822 Completed 201308/02/[address] [facility] 7 14:57:00 Single major depressi ve episode Completed 201308/02/[address] [facility] 7 14:39:15 Tobacco user [id number] Completed 201311/29/2017 Removal Reason: quit Akua Rigoberto-LIN Faustin, [facility] 8 10:43:17 Contact dermatit is 15676959 Completed 201308/02/[address] [facility] 7 14:39:21 Ex-smoke r 2987340 Active 2017 Not Available [facility] 2 04:47:11 Type 2 diabetes mellitus controll ed by diet [id number] 9101 Completed 201812/19/2019 Almita Villalobos PA-C [address], [place], [address] , [facility] 0 14:20:57 Chronic kidney disease stage 1 837813663 Active 2018 Not Available [facility] 2 04:47:11 Hyperten sive renal disease 83730909 Active 2019 Not Available [facility] 2 04:47:11 Renal disorder due to type 2 diabetes mellitus 407577543 Active 2019 Not Available [facility] 2 04:47:11 Exposure to SARS-CoV -2 Completed 202003/17/2021 Removal Reason: Problem marked historic al by user [email or web address] 5 from the COVID-19 watch flag Susannah Phan michelle [facility] 1 15:10:38 COVID-19 [id number] Completed 202003/17/2021 Removal Reason: Problem marked historic al by user [email or web address] 5 from the COVID-19 watch flag Susannah Phan michelle, [facility] 1 15:10:38 Generali zed anxiety disorder 78553124 Active 2022 Almita Villalobos PA-C [address] [address], [place], [address] , [facility] 3 10:55:49 Lumbar spondylo sis 281562138 Active 2022 Almita Villalobos PA-C [address] [address], [place], [address] , [facility] 3 11:11:58 Body mass index 30+ - obesity 718234087 Active 2023 Almita Villalobos PA-C [address] [address], [place], [address] , [facility] 4 11:20:33 Moderate major depressi on, single episode 43976158 Active 2023 Almita Villalobos PA-C [address] [address], [place], [address] , [facility] 4 13:08:10 Dysuria 78527766 Active 2023 RAJESH Zarate [address] [facility] [address], [place], [address] , [facility] 4 13:42:37 Constipa tion 01659968 Active 2023 RAJESH Zarate [address] [facility] [address], [place], [address] , [facility] 4 13:44:10 Rectal polyp 37262500 Active 2024 2 2-3 mm rectal polyps Almita Villalobos PA-C [address] [facility] [address], [place], [address] , [facility] 5 14:09:24 Requires antibiot ic coverage for dental procedur e Active 2024 Almita Villalobos PA-C [address] [facility] [address] [facility], [place], [address] , [facility] 5 15:06:44 Insomnia disorder related to another mental disorder 55749261 Active 2024 Almita Villalobos PA-C [address] [facility] [address] [facility], [place], [address] , [facility] 5 11:02:49 Pain in right arm 431950797 Active 2024 Padmini martinez, [facility] 5 16:34:11 Mixed hyperlip idemia 360854500 Active 2024 Almita Villalobos PA-C [address] [address], [place], [address] , [facility] 5 10:33:20 Problem Notes None recorded. Procedures Surgical History Date Name Laterality Status Provider Name and Address Organization Details Recorded Time 10/08/19 25 Colonoscopy completed Susannah Rosales [facility] 10/08/2024 09:51:55 09/10/19 25 Diabetic Foot Exam (Monofilament) completed Almita Villalobos PA-C [address] [facility] [address], [place], [address], [facility] 09/10/2024 16:09:12 06/07/20 23 diabetic retinopathy screening completed Susannah Rosales [facility] 06/27/2023 10:24:05 12/25/19 23 Diabetic Foot Exam (Monofilament) completed Parker Potter [facility] 12/24/2022 10:52:24 10/30/19 23 Advanced Care Planning completed Eva Escalona MA [facility] 10/29/2022 10:02:31 12/31/19 21 Most Recent Mammogram completed Carol Hendrickson [facility] 12/31/2020 10:11:50 09/05/19 21 Six-Item Cognitive Test completed Eva Escalona MA [facility] 09/05/2020 10:13:12 07/22/20 20 Diabetic Foot Exam (Monofilament) completed Lela Yu MA [facility] 07/22/2020 10:08:16 03/18/20 20 Diabetic Foot Exam (Monofilament) completed Donna Cardenas [facility] 03/18/2020 09:30:37 10/25/19 20 Mammogram both breasts completed Marya Roper [facility] 10/26/2019 14:23:04 07/05/20 19 injection of joint of foot completed Susannah Phan [facility] 07/09/2019 10:21:02 08/15/19 18 Biopsy skin lesion completed Akua whitaker MA [facility] 11/29/2017 10:52:49 11/05/19 16 Joint Replacement completed Eva Escalona MA [facility] 06/11/2016 11:07:17 05/16/20 15 Date of Last Colonoscopy completed Shikha Hamm MA [facility] 08/03/2018 11:18:54 05/16/20 15 Colonoscopy completed Shikha Hamm MA [facility] 01/26/2017 12:52:21 12/20/19 15 Date of Last Pap Smear completed Eva Escalona MA [facility] 01/01/2015 14:35:25 01/28/20 07 Most Recent Bone Density completed Shikha Hamm MA [facility] 08/03/2018 11:18:29 01/13/19 86 Hysterectomy completed Eva Escalona MA [facility] 01/01/2015 14:35:53 01/13/19 86 Hysterectomy completed Eva Escalona MA [facility] 09/05/2020 09:59:09 09/15/18 83 Caesarean Section completed Eva Escalona MA [facility] 01/01/2015 14:35:53 09/15/18 83 Caesarean Section completed Eva Escalona MA [facility] 09/05/2020 09:59:09 09/15/18 79 Caesarean Section completed Eva Escalona MA [facility] 01/01/2015 14:35:53 Imaging Results None recorded. Procedure Notes None recorded. Medical Equipment None Reported. Allergies Allergen ID Allergen Name Allergen Category Reaction Reaction Severity Criticality Documentation Date Start Date Code Code System Note Provider Name and Address Organization Details Recorded Time 19732 Augmentin medicatio n diarrhea vomiting Not available Not available Not available 11/30/20172017 19050 2 RxNorm but can anton ate amox ac denta lwork Jonas Villalobos PA-C [address] [facility] [address], [place], [address] , [facility] 5 14:29:59 38533 lisinopri l medicatio n cough Not available Not available 03/14/[address] [facility] 8 13:49:55 693 codeine medicatio n irregular heart rate moderate Not available 02/26/[address] [facility] 5 14:34:57 694 doxycycli ne monohydra te medicatio n vomiting moderate Not available 02/26/201486883 2 RxNorm LNI Pavon, [facility] 5 14:34:57 695 latex environme nt,medica tion hives moderate Not available 02/26/2014 12881 91 RxNorm LIN Pavon, [facility] 5 14:34:57 696 Shellfish (substanc e) food,medi cation hives severe Not available 02/26/2014 61699 9006 SNOMED LIN Pavon, [facility] 5 14:34:57 Medications Name Sig Start Date [...] oral route as needed for 30 days. 10/28 /2016 completed Not Available Not Available Not Available [...] RECORDED 11/06/19 10 8:33AM BY DEMETRIUS RICE, SALIMA, MEDICATI ON AUTO-LYNN CTIVATIO N; Not Available [...] Available Not Available Not Available Fluad Quad 5946-8320 (65yr up)(PF) 60 mcg (15 mcg x [...] 12/21 completed 08/22/24 not started awaiting with [facility] e approval . Not Available Not Available [...] Updated DateTime 5 160.02 cm 36.9 kg/m2 96430.9 1 g 98 % 70 /min 97.2 [degF] 121/74 mm[Hg] Eva Escalona MA [facility] 5 15:50:24 Social History Question Answer Notes LastModified by Organizat ion Details LastModified Time Tobacco Smoking Status Former [facility]oker [facility]2017 10:52:27 Do You Have An Advance Directive? No Information not available 07/27/2022 Animal Exposure? Yes [email or web address] Informat ion not available 07/27/2022 Is Blood Transfusion Acceptable In An Emergency? Yes [email or web address] Information not available 01/01/2015 What Is Your Level Of Caffeine Consumption? Moderate 1 Cup Of Coffee Daily Information not available 11/29/2017 How Much Tobacco Do You Chew? None Information not available 11/29/2017 What Type Of Diet Are You Following? REGULAR [email or web address] Information not available 05/30/2014 Which Illicit Or Recreational Drugs Have You Used? None Information not available 11/29/2017 Education 2 Year College [email or web address] Information not available 07/27/2022 Have There Been Any Changes To Your Family Or Social Situation? No [email or web address] Information not available 07/27/2022 When Did You Quit Smoking? 16+yearssinc elastcigaret te [email or web address] Information not available 09/09/2021 Are There Any Guns Present In Your Home? No [email or web address] Information not available 07/27/2022 Legally Blind In One Or Both Eyes? No [email or web address] Information not available 07/27/2022 Live Alone Or With Others? With Others (Dave) And 1 Dog [email or web address] Information not available 06/08/2024 Do You Take Precautions To Prevent Distracted Driving? Yes [email or web address] Information not available 06/11/2016 How Often Do You Need To Have Someone Help You When You Read Instructions, Pamphlets, Or Other Written Material From Your Doctor Or Pharmacy? Never abigby Information not available 01/26/2017 Have You Served In The ? No [email or web address] Information not available 06/11/2016 Have You Or Anyone In Your Household Had Any Of The Following Symptoms In The Last 14 Days: Sore Throat, Cough, Chills, Body Aches For Unknown Reasons, Shortness Of Breath For Unknown Reasons, Loss Of Smell, Loss Of Taste, Fever At Or Greater Than 100 Degrees Fahrenheit? No [email or web address] Information not available 09/05/2020 Are You Or Anyone In Your Household A Health Care Provider Or Emergency Responder? No Information not available 08/26/2020 To The Best Of Your Knowledge Have You Been In Close Proximity To Any Individual Who Tested Positive For COVID-19? No [email or web address] Information not available 09/05/2020 *AWV ONLY* Are You Presently Prescribed Opioid Medication By PCP Or Specialist? If YES -Provider Assess The Benefit For Other, Non-opioid Pain Therapies Instead, Even If The Patient Does Not Have OUD But Is Possibly At Risk. No [email or web address] Information not available 09/09/2021 Have You Recently Traveled To A [place] [address] High Risk Area Or Gathering In The Last 10 Days? No Information not available 08/26/2020 What Was The Date Of Your Most Recent Tobacco Screening? 06/20/2025 [email or web address] Information not available 06/20/2025 Total Number Of Stairs In Home 2 [email or web address] Information not available 07/27/2022 How Many Children Do You Have? 2 Clary And Curtis Information not available 11/29/2017 What Is Your Current Pack Years? 10packyears [email or web address] Information not available 07/27/2022 Do You Use Protection During Sex? No Information not available 11/29/2017 Difficulty Reading? No [email or web address] Information not available 07/27/2022 What Is Your Relationship Status? [email or web address] Information not available 07/27/2022 Do You Use Your Seat Belt Or Car Seat Routinely? Yes [email or web address] Information not available 09/09/2021 Seat Belts Used Routinely Yes Information not available 07/27/2022 Are You Sexually Active? No [email or web address] Information not available 09/09/2021 Smoke Alarm In Home Yes [email or web address] Information not available 07/27/2022 Do You Have Smoke And Carbon Monoxide Detectors In Your Home? No [email or web address] Information not available 09/09/2021 At What Age Did You Start Smoking Tobacco? 18 Quit At 26 Information not available 11/29/2017 Are You Passively Exposed To Smoke? No Information not available 11/29/2017 Do You Use Sunscreen Routinely? Yes [email or web address] Information not available 05/30/2014 How Many Years Have You Smoked Tobacco? 8 Information not available 11/29/2017 Do You Have Difficulty Walking Or Climbing Stairs? Yes [email or web address] Information not available 07/27/2022 Sex: Unknown Functional Status Question Answer Note LastModified by Organizat ion Details LastModified Time Do you use any illicit or recreational drugs? No [email or web address] Information not available 07/27/2022 What is your level of alcohol consumption? Occasional [email or web address] Information not available 05/30/2014 Do you or have you ever used smokeless tobacco? Never used smokeless tobacco [email or web address] Information not available 08/20/2019 Are you currently employed? Yes [email or web address] Information not available 05/30/2014 Difficulty driving at night? No [email or web address] Information no t available 07/27/2022 Are you able to walk independently without assistance or assistive devices? YESWOREST [email or web address] Information not available 07/27/2022 Are you able to care for yourself independently? Yes [email or web address] Information not available 05/30/2014 What is your occupation? Retired [email or web address] Information not available 09/09/2021 Do you have difficulty dressing, bathing, grooming, or toileting? No [email or web address] Information not available 07/27/2022 Do you or have you ever used e-cigarettes or vape? Never used electronic cigarettes Information not available 07/27/2022 What is your exercise level? [facility]walks Information not available 09/09/2021 Mental Status Question Answer Note LastModified by Organization D etails LastModified Time Do you have difficulty concentrating, remembering or making decisions? No [email or web address] Information no t available 07/27/2022 Family History Relationship Description Onset Age of this Age Resolved Age Notes LastModified by Organization Details LastModified Time Mother Osteoporosis [email or web address] Not laila ilable 09/05/2020 09:58:45 Mother Disorder of thyroid gland [email or web address] Not available 09/05 09:58:45 Mother Harmful pattern of use of alcohol [email or web address] Not available 09/05 09:58:45 Mother Depressive disorder [email or web address] Not available 09/05 09:58:45 Mother Hypertensive disorder [email or web address] Not available 09/05 09:58:45 Mother Chronic obstructive pulmonary disease 76 [email or web address] Not available 09/05 09:58:45 Mother Anxiety disorder [email or web address] Not available 09/05 09:58:45 Father Heart disease [email or web address] Not available 09/05 09:58:45 Father Chronic obstructive pulmonary disease 76 [email or web address] Not available 2021 09:10:17 Father Arthritis [email or web address] Not availa ble 09/05/2020 09:58:45 Father Blood coagulation disorder [email or web address] Not available 09/05 09:58:45 Father Hypertensive disorder [email or web address] Not available 09/05 09:58:45 Medical History Condition Response Gout N Other N Blood Diseases N Kidney Stones N Hyperthyroidism N Breast Cancer N Depression [...] Immunizations Vaccine Type Date Status Note Provider Maksim preston and Address Organization Details Recorded Time Tdap 8 completed Not Available [facility] 06/29/2022 04:47:12 Influenza, split virus, trivalent, preservative 1 completed Not Available [facility] 06/29/2022 04:47:11 Influenza, split virus, trivalent, preservative 1 completed Not Available [facility] 06/29/2022 04:47:12 Influenza, split virus, trivalent, preservative 2 completed [facility] Available [facility] 06/29/2022 04:47:12 Influenza, split virus, trivalent, preservative 3 completed Not Available [facility] 06/29/2022 04:47:12 Influenza, split virus, quadrivalent, preservative [...] 50 mcg/0.25mL dose 1 completed Not Available [facility] 06/29/2022 04:47:12 Influenza, split virus, trivalent, preservative 2 completed Not Available [facility] 06/29/2022 04:47:12 Influenza, split virus, trivalent, preservative 3 completed Not Available [facility] 06/29/2022 04:47:11 Influenza, split virus, quadrivalent, preservative 6 completed Not Available [facility] 06/29/2022 04:47:12 Influenza, MDCK, quadrivalent, PF 8 completed Not Available [facility] 06/29/2022 04:47:12 Influenza, split virus, trivalent, PF 0 completed Not Available [facility] 06/29/2022 04:47:12 Influenza, split virus, trivalent, preservative 4 completed Not Available [facility] 06/29/2022 04:47:12 Influenza, high-dose, quadrivalent, PF 1 completed Not Available [facility] 06/29/2022 04:47:12 Influenza, split virus, quadrivalent, PF 7 completed Not Available [facility] 06/29/2022 04:47:12 Influenza, high-dose, quadrivalent, PF 2 completed Not Available [facility] 06/29/2022 04:47:12 COVID-19, mRNA, LNP-S, bivalent, PF, 50 mcg/0.5 mL or 25mcg/0.25 mL dose 2 completed Not Available [facility] 06/29/2022 04:47:11 Influenza, split virus, quadrivalent, PF [address] [facility] 07/27/2022 10:45:49 pneumococcal polysaccharide PPV23 [address] [facility] 07/27/2022 10:45:49 Td (adult), 2 Lf tetanus toxoid, preservative free, adsorbed [address] [facility] 07/27/2022 10:45:49 Influenza, adjuvanted, trivalent, PF [address] [facility] 06/08/2024 10:59:15 Pneumococcal conjugate PCV20, polysaccharide KIG404 conjugate, adjuvant, PF [address] [facility] 07/25/2024 13:27:35 Influenza, adjuvanted, trivalent, PF 5 completed Not Available [facility] 07/16/2025 10:10:52 Influenza, high-dose, quadrivalent, PF 3 completed Almita Villalobos PA-C [address] [address], [place], [address], 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 She has been getting some help from increased dose of gabapentin . Health Concerns Section Related Observation LastModified by Organization Detai ls LastModified Time None Recorded Concern Status LastModified by Organization Details LastModified Time None Recorded Payers Encounter Date Sequence Insurance Name Policy Number Policy Munson Covered Member ID Munson Member ID Guarantor Name 06/20/[address] [facility]: MEDICARE HMO BLUE (MEDICARE REPLACEMENT HMO) [id number] Kanchan Joiner [id number] Kanchan Joiner Notes Date Note Type Note Provider Name and Address Organization Details Recorded Time 06/20/2025 text/html Mamta Boles [employer] student: Pt reports 3 weeks of Rt [...] specialist in the past for this issue. Alexander Vallecillo MD [address] [address], [place], [address], [facility] 06/26/2025 17:50:00 OBGyn Episode No OBEpisode recorded.
== END 2025-07-29 13:44 | disposition home or self-care (01) ==
LOC: HO.NEURO 13:43
PROVIDERS: PCP Physician Assistant Medical; Visit Provider Internal Medicine
DX: M79.601 Pain in right arm (principal)
CPT/HCPCS: 95886; 95910

== ENCOUNTER → 2025-07-29 14:00 | Outpatient (BNV) | payer MEDICARE, SELFPAY | PROVIDERS: PCP Physician Assistant Medical; Visit Provider Psychiatry & Neurology Neurology | DX: M79.601 Pain in right arm (principal); G56.01 Carpal tunnel syndrome, right upper limb | CPT/HCPCS: 95886; 95910 ==